=== PATIENT | female | born 1940 | race Caucasian/White ===

== ENCOUNTER → 2017-08-31 | Day surgery (SDC) | payer MEDICARE ==
[~2017-08-31] VITALS: Ht 152.4 cm; Wt 65.8 kg
[~2017-08-31] MED LIST: /ADVA50050; /ALLEGDTA; /CELE20CA; ACET65TA; ADV250INH INH; AMLO5TAB2 PO; BRIM1OPD OU; CHONDROITEN; GABA-282 PO; LIDOCAINE 2% INJ 100 MG/5 ML SDV (FOR ANES.) As Ordered ONE; LOSA50TA20 PO; LR 1,000 ML IV SCH; MSM; PRESCAP6 PO; PROPOFOL 200 MG/20 ML VIAL As Ordered ONE; PROV90AE; SIMV20TA2; SIMV20TA2 PO; SYSTSOL14 OU; VICO5TAB; VITATAB11 PO; [UNRECOGNIZED DRUG - OTHER]; [UNRECOGNIZED DRUG - OTHER]
[2017-08-31 14:50] VITALS: BP 136/70
--- NOTE | 2017-08-31 15:05 | ROOR ---
Patient Name: Nella Gutierrez Procedure Date: 08/31/2017 1:39 PM Date of : 1940 Age: 76 Room: [facility] Gender: Female Note Status: Finalized Procedure: Colonoscopy Indications: Heme positive stool Providers: Salbador Vargas MD Referring MD: YESICA CHASE JR, MD Requesting Provider: Medicines: Monitored Anesthesia Care Complications: No immediate complications. Procedure: Pre-Anesthesia Assessment: - Prior to the procedure, a History and Physical was performed, and patient medications and allergies were reviewed. The patient is competent. The risks and benefits of the procedure and the sedation options and risks were discussed with the patient. All questions were answered and informed consent was obtained. Patient identification and proposed procedure were verified by the physician, the nurse and the sack sewer in the procedure room. Mental Status Examination: alert and oriented. Airway Examination: normal oropharyngeal airway and neck mobility. CV Examination: regular rate and rhythm. Prophylactic Antibiotics: The patient does not require prophylactic antibiotics. Prior Anticoagulants: The patient has taken no previous anticoagulant or antiplatelet agents. ASA Grade Assessment: III - A patient with severe systemic disease. After reviewing the risks and benefits, the patient was deemed in satisfactory condition to undergo the procedure. The anesthesia plan was to use monitored anesthesia care (MAC). Immediately prior to administration of medications, the patient was re-assessed for adequacy to receive sedatives. The heart rate, respiratory rate, oxygen saturations, blood pressure, adequacy of pulmonary ventilation, and response to care were monitored throughout the procedure. The physical status of the patient was re-assessed after the procedure. The was introduced through the anus and advanced to the cecum, identified by appendiceal orifice and ileocecal valve. The colonoscopy was somewhat difficult due to a tortuous colon. The patient tolerated the procedure well. The quality of the bowel preparation was excellent. Findings: The perianal and digital rectal examinations were normal. The colon (entire examined portion) was moderately tortuous. A 5 mm polyp was found at 50 cm proximal to the anus. The polyp was sessile. The polyp was removed with a cold snare. Resection and retrieval were complete. In the descending colon pt had a few small (3-5 mm) vascular anomalies that looked like small dilated veins or venous plexuses. Impression: - Tortuous colon. - One 5 mm polyp at 50 cm proximal to the anus, removed with a cold snare. Resected and retrieved. Recommendation: - Discharge patient to home. - Resume previous diet. - Continue present medications. - Await pathology results. - Telephone endoscopist for pathology results in 1 week. Salbador Vargas MD 08/31/2017 3:04:36 PM Number of Addenda: 0 Note Initiated On: 08/31/2017 1:39 PM Estimated Blood Loss: Estimated blood loss: none.
== END | disposition home or self-care (01) ==
LOC: M OPP 10:59
PROVIDERS: ATTEND Surgery
DX: R19.5 Other fecal abnormalities (principal); D12.5 Benign neoplasm of sigmoid colon; Q43.8 Other specified congenital malformations of intestine; K63.89 Other specified diseases of intestine; I10 Essential (primary) hypertension; E78.5 Hyperlipidemia, unspecified; M19.90 Unspecified osteoarthritis, unspecified site; M51.26 Other intervertebral disc displacement, lumbar region; Z78.0 Asymptomatic menopausal state; J45.909 Unspecified asthma, uncomplicated; R06.02 Shortness of breath; E88.09 Other disorders of plasma-protein metabolism, not elsewhere classified; Z88.8 Allergy status to other drugs, medicaments and biological substances; Z79.899 Other long term (current) drug therapy; Z83.71 Family history of colonic polyps

== ENCOUNTER 2018-05-29 19:46 | Emergency (ER) | payer MEDICARE ==
[2018-05-29] MEDS: PERCOCET 5MG/325MG TAB PO (20:30)
[2018-05-29] MEDS: OXYCODONE/APAP 5MG/325MG(BULK FOR ED) 1 TABLET PO (20:39)
== END 2018-05-29 20:53 | disposition home or self-care (01) ==
LOC: M ED 19:46
DX: S52.571A Other intraarticular fracture of lower end of right radius, initial encounter for closed fracture (principal); S52.611A Displaced fracture of right ulna styloid process, initial encounter for closed fracture; W19.XXXA Unspecified fall, initial encounter; Y92.099 Unspecified place in other non-institutional residence as the place of occurrence of the external cause; Y93.9 Activity, unspecified; Y99.9 Unspecified external cause status; I10 Essential (primary) hypertension; I51.9 Heart disease, unspecified; Z79.899 Other long term (current) drug therapy; Z88.6 Allergy status to analgesic agent; Z88.8 Allergy status to other drugs, medicaments and biological substances
CPT/HCPCS: 73080

== ENCOUNTER 2018-06-08 11:04 | Inpatient (IN) | payer MEDICARE ==
[2018-06-08 11:44] LABS: BASO # 0.1 10^3/uL (0.0-0.2); BASO % 0.7 % (0.0-1.0); EOS # 0.2 10^3/uL (0.0-0.50); EOS % 2.1 % (0.0-3.0); HEMATOCRIT 39.4 % (36.0-47.0); HEMOGLOBIN 12.9 g/dl (12.0-15.5); IMMATURE GRANULOCYTE % 0.5 % (0-3.0); LYMPH # 1.5 10^3/uL (1.5-4.5); MEAN CORPUSCULAR HEMOGLOBIN 30.4 pg (27.0-33.0); MEAN CORPUSCULAR HGB CONC 32.7 g/dl (32.0-36.5); MEAN CORPUSCULAR VOLUME 92.9 fl (80.0-96.0); MONO # 0.7 10^3/uL (0.0-0.8); MONO % 6.5 % (0.0-5.0); NEUTROPHILS # 7.6 10^3/uL (1.8-7.7); NEUTROPHILS % 75.2 % (36.0-66.0); PLATELET COUNT, AUTOMATED 355 10^3/uL (150-450); RED BLOOD COUNT 4.24 10^6/uL (4.00-5.40); WHITE BLOOD COUNT 10.1 10^3/uL (4.0-10.0)
[2018-06-08 12:22] LABS: ALBUMIN 3.8 GM/DL (3.2-5.2); ALBUMIN/GLOBULIN RATIO 1.06 (1.00-1.93); ALKALINE PHOSPHATASE 104 U/L (45-117); ALT/SGPT 40 U/L (12-78); ANION GAP 12 MEQ/L (8-16); AST/SGOT 39 U/L (7-37); BILIRUBIN,DIRECT 0.1 MG/DL (0.0-0.2); BILIRUBIN,TOTAL 0.5 MG/DL (0.2-1.0); BLOOD UREA NITROGEN 14 MG/DL (7-18); CALCIUM LEVEL 9.7 MG/DL (8.8-10.2); CARBON DIOXIDE LEVEL 22 MEQ/L (21-32); CHLORIDE LEVEL 109 MEQ/L (98-107); CPK CREATINE PHOSPHOKINASE 251 U/L (26-192); CREATININE FOR GFR 0.81 MG/DL (0.55-1.30); GLOMERULAR FILTRATION RATE > 60.0 (>39); GLUCOSE, FASTING 120 MG/DL (70-100); MB/CK RELATIVE INDEX 1.08 (< OR =4); POTASSIUM SERUM 3.9 MEQ/L (3.5-5.1); SODIUM LEVEL 143 MEQ/L (136-145); TOTAL PROTEIN 7.4 GM/DL (6.4-8.2); TROPONIN I < 0.02 NG/ML (< 0.10)
[2018-06-08] MEDS: ONDANSETRON 4MG/2ML VIAL (J2405) IV (12:40)
[2018-06-08] MEDS: MECLIZINE 25 MG TABLET PO (12:40)
[2018-06-08] MEDS: NS 500 ML IV (12:40)
[2018-06-08 14:17] LABS: KETONE, URINE AUTO RFX NEGATIVE (NEGATIVE); LEUKOCYTE ESTERASE UR AUTO RFX NEGATIVE (NEGATIVE); NITRITE, URINE AUTO RFX NEGATIVE (NEGATIVE); RBC, URINE AUTO RFX 2 /HPF (0-3); SPECIFIC GRAVITY UR AUTO RFX 1.008 (1.002-1.035); SQUAM EPITHELIAL CELL UR AURFX 0 /HPF (0-6); WBC, URINE AUTO RFX 0 /HPF (0-3)
[2018-06-08] MEDS ORDERED: ONDANSETRON 4MG/2ML VIAL (J2405) IV (17:00)
[2018-06-08] MEDS: ADVAIR HFA 115/21MCG INHALER INH (20:29)
[2018-06-08] MEDS ORDERED: IPRATROPIUM 0.5MG/ALBUTEROL 2.5MG INH SOL UD 3ML (DUONEB)(J7620) NEB (20:30)
[2018-06-08 20:43] LABS: CPK CREATINE PHOSPHOKINASE 192 U/L (26-192); TROPONIN I < 0.02 NG/ML (< 0.10)
[2018-06-08] MEDS: amLODIPine 5 MG TAB PO (21:50)
[2018-06-08] MEDS: SIMVASTATIN 20 MG TAB PO (21:50)
[2018-06-08] MEDS: HEPARIN SOD (PORCINE) 5000 UNITS/ML VIAL SC (21:50)
[2018-06-08] MEDS: GABAPENTIN 300 MG CAP PO (21:50)
[2018-06-08] MEDS: SODIUM CHLORIDE NASAL 0.65% SPRAY BTL (OCEAN) (22:46)
[2018-06-08] MEDS: BRIMONIDINE 0.1% OPHTH SOLN 5 ML OU (22:46)
[2018-06-08] MEDS: FLUTICASONE PROP 0.05% NASAL SPRAY 16 GM (FLONASE) NARES (22:46)
[2018-06-09] MEDS: MECLIZINE 12.5 MG TAB PO (05:55)
[2018-06-09] MEDS: ADVAIR HFA 115/21MCG INHALER INH ×2 (07:47→21:00)
[2018-06-09] MEDS: GABAPENTIN 300 MG CAP PO ×3 (09:09→20:12)
[2018-06-09] MEDS: FLUTICASONE PROP 0.05% NASAL SPRAY 16 GM (FLONASE) NARES ×2 (09:09→20:13)
[2018-06-09] MEDS: BRIMONIDINE 0.1% OPHTH SOLN 5 ML OU ×2 (09:09→20:14)
[2018-06-09] MEDS: HEPARIN SOD (PORCINE) 5000 UNITS/ML VIAL SC ×2 (09:09→20:12)
[2018-06-09] MEDS: VITAMIN D 1,000 INTERNATIONAL UNITS TABLET PO (09:09)
[2018-06-09] MEDS: SODIUM CHLORIDE NASAL 0.65% SPRAY BTL (OCEAN) ×3 (09:09→20:13)
[2018-06-09] MEDS: SIMVASTATIN 20 MG TAB PO (20:12)
[2018-06-09] MEDS: amLODIPine 5 MG TAB PO (20:13)
[2018-06-10] MEDS: ADVAIR HFA 115/21MCG INHALER INH ×2 (07:15→20:55)
[2018-06-10] MEDS: GABAPENTIN 300 MG CAP PO ×3 (09:21→21:19)
[2018-06-10] MEDS: BRIMONIDINE 0.1% OPHTH SOLN 5 ML OU ×2 (09:21→21:20)
[2018-06-10] MEDS: VITAMIN D 1,000 INTERNATIONAL UNITS TABLET PO (09:21)
[2018-06-10] MEDS: SODIUM CHLORIDE NASAL 0.65% SPRAY BTL (OCEAN) ×3 (09:21→21:20)
[2018-06-10] MEDS: HEPARIN SOD (PORCINE) 5000 UNITS/ML VIAL SC ×2 (09:21→21:19)
[2018-06-10] MEDS: FLUTICASONE PROP 0.05% NASAL SPRAY 16 GM (FLONASE) NARES ×2 (09:22→21:20)
[2018-06-10] MEDS: SIMVASTATIN 20 MG TAB PO (21:19)
[2018-06-10] MEDS: amLODIPine 5 MG TAB PO (21:20)
[2018-06-11 06:35] LABS: BASO # 0.1 10^3/uL (0.0-0.2); BASO % 0.9 % (0.0-1.0); EOS # 0.6 10^3/uL (0.0-0.50); EOS % 5.3 % (0.0-3.0); HEMATOCRIT 38.5 % (36.0-47.0); HEMOGLOBIN 12.3 g/dl (12.0-15.5); IMMATURE GRANULOCYTE % 0.6 % (0-3.0); LYMPH # 2.3 10^3/uL (1.5-4.5); LYMPH % 19.1 % (24.0-44.0); MEAN CORPUSCULAR HEMOGLOBIN 30.4 pg (27.0-33.0); MEAN CORPUSCULAR HGB CONC 31.9 g/dl (32.0-36.5); MEAN CORPUSCULAR VOLUME 95.1 fl (80.0-96.0); MONO # 1.1 10^3/uL (0.0-0.8); MONO % 9.4 % (0.0-5.0); NEUTROPHILS # 7.7 10^3/uL (1.8-7.7); NEUTROPHILS % 64.7 % (36.0-66.0); PLATELET COUNT, AUTOMATED 348 10^3/uL (150-450); RED BLOOD COUNT 4.05 10^6/uL (4.00-5.40); RED CELL DISTRIBUTION WIDTH 14.3 % (11.5-14.5)
[2018-06-11 07:01] LABS: ANION GAP 12 MEQ/L (8-16); BLOOD UREA NITROGEN 19 MG/DL (7-18); CALCIUM LEVEL 9.7 MG/DL (8.8-10.2); CARBON DIOXIDE LEVEL 23 MEQ/L (21-32); CHLORIDE LEVEL 108 MEQ/L (98-107); CREATININE FOR GFR 0.88 MG/DL (0.55-1.30); GLOMERULAR FILTRATION RATE > 60.0 (>39); GLUCOSE, FASTING 110 MG/DL (70-100); SODIUM LEVEL 143 MEQ/L (136-145)
[2018-06-11] MEDS: ADVAIR HFA 115/21MCG INHALER INH (07:34)
[2018-06-11] MEDS: BRIMONIDINE 0.1% OPHTH SOLN 5 ML OU (09:44)
[2018-06-11] MEDS: FLUTICASONE PROP 0.05% NASAL SPRAY 16 GM (FLONASE) NARES (09:45)
[2018-06-11] MEDS: SODIUM CHLORIDE NASAL 0.65% SPRAY BTL (OCEAN) ×2 (09:45→16:00)
[2018-06-11] MEDS: GABAPENTIN 300 MG CAP PO ×2 (09:47→16:00)
[2018-06-11] MEDS: VITAMIN D 1,000 INTERNATIONAL UNITS TABLET PO (09:47)
[2018-06-11] MEDS: HEPARIN SOD (PORCINE) 5000 UNITS/ML VIAL SC (09:47)
[2018-06-13 12:53] LABS: BEDSIDE GLUCOSE 115 MG/DL (83-110)
== END 2018-06-11 16:15 | disposition home or self-care (01) | DRG 149 ==
LOC: M PCU 06-09 17:22 → M MS5PR 06-09 19:52 → M ED 11:04 → M ED INP 16:41 → M PCU 18:20
PROVIDERS: Hospitalist
DX: H81.20 Vestibular neuronitis, unspecified ear (principal); H83.09 Labyrinthitis, unspecified ear; J45.909 Unspecified asthma, uncomplicated; E78.5 Hyperlipidemia, unspecified; M54.5 Low back pain; Z79.899 Other long term (current) drug therapy; Z88.6 Allergy status to analgesic agent; Z88.8 Allergy status to other drugs, medicaments and biological substances; I10 Essential (primary) hypertension

== ENCOUNTER 2019-06-22 09:05 | Inpatient (IN) | payer MEDICARE ==
[~2019-06-22] VITALS: Ht 149.9 cm; Wt 65.0 kg
[~2019-06-22 09:05] MED LIST changes: -/ADVA50050; -/CELE20CA; +ADVA1AER2; -AMLO5TAB2 PO; +AMLO5TAB6 PO; +CELE1CAP4; -GABA-282 PO; +GABA-843 PO; -LIDOCAINE 2% INJ 100 MG/5 ML SDV (FOR ANES.) As Ordered ONE; -LOSA50TA20 PO; +LOSA50TA88 PO; -LR 1,000 ML IV SCH; +MECL12.575 PO; +PERC5TAB12 PO; -PROPOFOL 200 MG/20 ML VIAL As Ordered ONE; +TYLE500T78 PO; +VITA100066 PO
[2019-06-22] MEDS ORDERED: NITROGLYCERIN 2% OINT 1 GM *U/D* PKT TOP ONE (09:45)
[2019-06-22] MEDS ORDERED: GI COCKTAIL 50ML BTL(HYOSCYAMINE/MAALOX/LIDOCAINE VISCOUS)(1:3:1) PO ONE (09:45)
[2019-06-22 09:59] LABS: BASO # 0.1 10^3/uL (0.0-0.2); BASO % 0.7 % (0.0-1.0); EOS % 0.2 % (0.0-3.0); HEMATOCRIT 41.8 % (36.0-47.0); HEMOGLOBIN 13.4 g/dl (12.0-15.5); LYMPH # 0.9 10^3/uL (1.5-5.0); LYMPH % 5.8 % (24.0-44.0); MEAN CORPUSCULAR HEMOGLOBIN 30.8 pg (27.0-33.0); MEAN CORPUSCULAR HGB CONC 32.1 g/dl (32.0-36.5); MEAN CORPUSCULAR VOLUME 96.1 fl (80.0-96.0); MONO # 0.8 10^3/uL (0.0-0.8); MONO % 5.1 % (0.0-5.0); NEUTROPHILS % 87.4 % (36.0-66.0); PLATELET COUNT, AUTOMATED 346 10^3/uL (150-450); RED BLOOD COUNT 4.35 10^6/uL (4.00-5.40)
[2019-06-22 10:13] LABS: INR 1.04; PROTHROMBIN TIME 13.3 SECONDS (11.8-14.0)
[2019-06-22 10:14] LABS: PARTIAL THROMBOPLASTIN TIME 30.3 SECONDS (25.0-38.4)
--- NOTE | 2019-06-22 10:18 | REP ---
CHEST, SINGLE VIEW: Single portable view of the chest is performed and compared to a prior study of 09/14/2012. There is mild bibasilar fibroatelectatic change. There is slight elevation of the right hemidiaphragm. I see no acute infiltrate. The heart is upper limits of normal in size. There is calcification of the thoracic aorta. Mediastinal silhouette is unremarkable. IMPRESSION: No evidence of acute infiltrate or pulmonary edema. Electronically Signed by Berto Milner MD 06/23/2019 09:14 A
[2019-06-22 10:33] LABS: ALBUMIN 3.9 GM/DL (3.2-5.2); ALT/SGPT 30 U/L (12-78); BILIRUBIN,DIRECT < 0.1 MG/DL (0.0-0.2); BILIRUBIN,TOTAL 0.5 MG/DL (0.2-1.0); BLOOD UREA NITROGEN 13 MG/DL (7-18); CALCIUM LEVEL 9.5 MG/DL (8.8-10.2); CARBON DIOXIDE LEVEL 28 MEQ/L (21-32); CHLORIDE LEVEL 104 MEQ/L (98-107); CK-MB VALUE MASS 2.1 NG/ML (<3.6); CPK CREATINE PHOSPHOKINASE 167 U/L (26-192); CREATININE FOR GFR 0.89 MG/DL (0.55-1.30); GLOMERULAR FILTRATION RATE > 60.0 (>39); GLUCOSE, FASTING 129 MG/DL (70-100); LIPASE 143 U/L (73-393); MB/CK RELATIVE INDEX 1.26 (< OR =4); NT-PRO BNP 49 PG/ML (<450); POTASSIUM SERUM 4.5 MEQ/L (3.5-5.1); SODIUM LEVEL 140 MEQ/L (136-145); TOTAL PROTEIN 7.6 GM/DL (6.4-8.2); TROPONIN I < 0.02 NG/ML (< 0.10)
--- NOTE | 2019-06-22 10:58 | ECGEPIP ---
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
[2019-06-22] MEDS ORDERED: ISOVUE-370 76% 100ML VIAL (Q9967) As Ordered ONE (11:50)
--- NOTE | 2019-06-22 13:44 | REP ---
CT ANGIOGRAPHY OF THE CHEST WITH IV CONTRAST: HISTORY: Central chest pain. Comparison CT angiography is from Jan [address] CONTRAST DOSE: 100 mL of intravenous Isovue [address] FINDINGS: Digital preliminary scout executive radiograph is unremarkable. There is good opacification of the pulmonary arterial tree and there is no CT evidence of pulmonary embolus. There is vascular calcification in the aorta and its branches. There is no CT evidence of dissection or aneurysm. There is no evidence of pleural or pericardial effusion. There is a somewhat nodular peripheral pleural-based density in the left lower lobe. There are air bronchograms within this density. This measures 4.4 x 3.0 x 2.3 cm in overall dimension. Bronchogenic malignancy versus pneumonia. A small peripheral density is visible in 2014 in this location. There is also a stable noncalcified 5 mm nodule in the right upper lobe unchanged. There is no evidence of pleural or pericardial effusion. There are scattered normal-sized mediastinal lymph nodes which are unchanged from the 2014 prior study. No adrenal lesion is observed. Gallstones are noted within the gallbladder. There are benign cysts in the liver . These are unchanged. No bony destructive lesion is appreciated. IMPRESSION: 1. 4.4 cm nodular mass in the left lower lobe most likely neoplastic, less likely infiltrate. Consider PET-CT and histologic sampling. Stable right upper lobe nodule. No evidence of adenopathy or adrenal mass. 2. No CT evidence of pulmonary embolus or acute thoracic aortic disease. 3. Cholelithiasis. Electronically Signed by Robbie Oliver MD 06/22/2019 02:42 P
[2019-06-22 14:23] LABS: CK-MB VALUE MASS 1.8 NG/ML (<3.6); MB/CK RELATIVE INDEX 1.3 (< OR =4); TROPONIN I 0.02 NG/ML (< 0.10)
[2019-06-22] MEDS ORDERED: cefTRIAXone SOD 2 GM in D5W MINI-BAG PLUS 50 ML IV ONE (15:00)
[2019-06-22] MEDS ORDERED: NS 1,000 ML IV ONE (15:00)
--- NOTE | 2019-06-22 15:19 | REP ---
CT of the abdomen pelvis with IV contrast, without bowel contrast for right upper quadrant pain: Comparison is 02/18/2011. The visualized lung bases demonstrate infiltrate versus mass in the left lower lobe. Follow-up is recommended. There is a subcapsular hepatic cyst anteriorly in the medial segment of the hepatic left lobe measuring 18 mm, not significant changed. There is a second hypodense lesion in the right lobe of the liver, nonspecific, hemangioma versus cyst, measuring approximately 8 mm. There are several other small enhancing lesions in the right lobe of the liver measuring up to 12 mm, possibly small hemangiomas, but not definitely present previously. Follow-up hepatic MRI might be considered for further evaluation. There are multiple small gallbladder calculi. This is unchanged. There is no biliary duct dilatation. There has been a distal pancreatectomy. On the prior study there was a cyst at the distal pancreas at the pancreatectomy site. This cyst has significantly decreased in size. The remaining pancreas is otherwise unremarkable. 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 This is unchanged. The adrenals are unremarkable. The kidneys are unremarkable except for diffuse renal cortical thinning bilaterally. There is a 99 ml Bosniak type 1 renal cortical cyst in the left renal lower pole. There is a 28 mm Bosniak type 1 cyst at the mid pole of the left kidney. These were not present previously. There is a 15 ml Bosniak type 1 cyst at the mid pole of the right kidney, not present previously. The abdominal aorta is unremarkable. There is no periaortic adenopathy or mass. There is wall thickening of the distal transverse colon, descending colon and sigmoid colon. This is nonspecific but compatible with colitis in the appropriate clinical setting. There is no ascites. The bowel is otherwise unremarkable. The mesentery is unremarkable. Pelvis: The uterus is unremarkable. There is a left adnexal 3.7 cm cyst. On 02/18/2011 there was a left adnexal cyst that measured 2.2 cm. The right adnexa is unremarkable. The bladder is unremarkable. There is no pelvic ascites or adenopathy. Impression: Wall thickening of the distal transverse colon, descending colon and sigmoid colon, nonspecific but compatible with colitis in the appropriate clinical setting. No ascites or adenopathy. Focal density in the lower lobe of the left lung, mass versus infiltrate. Recommend follow-up. Cholelithiasis. Hepatic cysts as described. Multiple tiny hepatic enhancing lesions, possibly hemangioma. Followup MRI is recommended. Distal pancreatectomy. The cyst at the distal pancreas has decreased in size. Bilateral Bosniak type 1 renal cysts. Left adnexal 3.7 cm cyst. No spleen. Electronically Signed by Berto Avina MD 06/22/2019 03:11 P
[2019-06-22] MEDS ORDERED: SYST1SOL4 OU (15:34)
[2019-06-22] MEDS ORDERED: LOSA50TA88 PO (15:34)
[2019-06-22] MEDS ORDERED: ACET-683 PO (15:34)
[2019-06-22] MEDS ORDERED: FLUT1BLS2 INH (15:34)
[2019-06-22] MEDS ORDERED: PRESCAP PO (15:34)
[2019-06-22] MEDS ORDERED: PROL60SO SC (15:35)
[2019-06-22] MEDS ORDERED: MAALOX 30 ML SUSP *UDC PO PRN (16:45)
[2019-06-22 19:53] LABS: CK-MB VALUE MASS 1.3 NG/ML (<3.6); MB/CK RELATIVE INDEX 1.08 (< OR =4); TROPONIN I 0.02 NG/ML (< 0.10)
[2019-06-22 20:20] VITALS: BP 160/74
[2019-06-22] MEDS ORDERED: ACETAMINOPHEN TAB 650MG DOSE (2X325MG) PO ONE (21:00)
[2019-06-22] MEDS: LOSARTAN 50 MG TAB PO SCH (21:20)
[2019-06-22] MEDS: GABAPENTIN 300 MG CAP PO SCH (21:20)
[2019-06-22] MEDS: amLODIPine 5 MG TAB PO SCH (21:21)
[2019-06-22] MEDS: SIMVASTATIN 20 MG TAB PO SCH (21:21)
[2019-06-22] MEDS: BRIMONIDINE 0.1% OPHTH SOLN 5 ML OU SCH (22:02)
[2019-06-22] MEDS: ADVAIR HFA 115/21MCG INHALER INH SCH (22:20)
--- NOTE | 2019-06-22 22:35 | HPEPDOC ---
General Date of Admission 06/22/19 Date of Service: Jun 22, 2019 Chief Complaint The patient is a 78-year-old female admitted with a reason for visit of Chest Pain. 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 She had got up and gone to the bathroom and then came back and lay down on the bed on her side and suddenly felt the cramp like pain in the lower part of the chest below both breasts radiating bilaterally to the sides. She turned over to the other side thinking it was acid reflux and would get better but that did not help and the pain persisted for several hours. She felt that she she was able to stretch her chest wall it would feel better. Associated with this was also upper midback pain radiating forward to the right side. The pain was about 6/10 in intensity and persistent not worsened with deep breaths. She called her primary care however they could not get her in today and was instructed to go to the urgent care. At the urgent care she was found to be extremely hypertensive and was sent to the ED. On arrival to the ED her BP was 221/107 and she was still in pain . She was given a GI cocktail and a nitropaste. Ultimately her pain resolved at about 3 pm. She then had a CT angio of the chest. which was negative of PE or dissection or aneurysm or pleural or pericardial effusion. However it did show a nodular peripheral pleural-based density in the left lower lobe. There are air bronchograms within this density. This measures 4.4 x 3.0 x 2.3 cm in overall dimension. Radiologist felt it to be Bronchogenic malignancy versus pneumonia. A small peripheral density is visible in 2013 in this location. There is also a stable noncalcified 5 mm nodule in the right upper lobe unchanged. She was also noted to have an elevated WBC of 16 k . She was admitted for possible pneumonia and chest pain Home Medications Scheduled Amlodipine Besylate (Amlodipine Besylate) 5 Mg Tab, 5 MG PO QPM, (Reported) Brimonidine Tartrate (Alphagan P) 100 Drop/5 Ml Soln, 1 DROP OU BID, (Reported) Cholecalciferol (Vitamin D3) (Vitamin D3) 1,000 Unit Tab, 1,000 UNIT PO DAILY, (Reported) Denosumab Injection (Prolia) 60 Mg/1 Ml Syringe, 60 MG SC ASDIRECTED, (Reported) EVERY 6 MONTHS, DUE JUL/AUG PER PT Fluticasone Propion/Salmeterol (Wixela 250-50 Inhub) 1 Each Blst.w.dev, 1 PUFF INH BID, (Reported) Gabapentin (Gabapentin) 300 Mg Cap, 300 MG PO TID, (Reported) Losartan Potassium (Losartan Potassium) 50 Mg Tablet, 50 MG PO QPM, (Reported) Simvastatin (Simvastatin) 20 Mg Tab, 20 MG PO QPM, (Reported) Vit A/Vit C/Vit E/Zinc/Copper (Preservision Areds Softgel) 1 Each Capsule, 1 CAP PO BID, (Reported) Scheduled PRN Acetaminophen (Acetaminophen) 500 Mg Tablet, 500 MG PO Q6H PRN for PAIN, (Reported) Propylene Glycol/Peg 400/Pf (Systane 0.3-0.4% Eye Drop) 1 Each Droperette, 1 DROP OU QID PRN for DRY EYES, (Reported) Allergies Coded Allergies: succinylcholine (Verified Allergy, Unknown, 06/22/19) aspirin (Verified Adverse Reaction, Intermediate, ASTHMA EXACERBATION, 1 ) Past Medical History Medical History Hypertension, ventral hernia, asthma, dyslipidemia, chronic back pain, pancreatic mucinous cyst adenoma s/p distal pacreatectomy and splenectomy, vertigo, Surgical History Distal pancreatectomy with splenectomy 2004 at [facility]. Ventral hernia repair 2005. Appendectomy, Hysteroscopy. Family History Significant Family History: Hypertension Discussed with the pateint and is non contributory. No family history of cardiac disease. Social History * Smoker: Denies Alcohol: Denies Drugs: denies A-FIB/CHADSVASC A-FIB History Current/History of A-Fib/PAF?: No Review of Systems Constitutional: Denies: Chills, Fever, Night Sweats Eyes: Denies: Pain, Vision change ENT: Denies: Head Aches, Ear Pain, Dysphagia Skin: Denies: Rash, Lesions, Breakdown Pulmonary: Denies: Dyspnea, Cough Cardiovascular: Reports: Chest Pain; Denies: Palpitations, Orthopnea, Paroxysmal Noc. Dyspnea, Edema, Lt Headedness, Other Symptoms Gastrointestinal: Denies: Nausea, Vomiting, Abdominal Pain, Diarrhea Genitourinary: Denies: Dysuria, Frequency, Incontinence, Retention Hematologic: Denies: Bruising, Bleeding Excessively Musculoskeletal: Reports: Back Pain Neurological: Denies: Weakness, Numbness, Change in speech, Confusion Physical Examination General Exam: Positive: Alert, Cooperative, No Acute Distress Eye Exam: Positive: PERRLA, Conjunctiva & lids normal, EOMI; Negative: Sclera icteric ENT Exam: Positive: Atraumatic, Mucous membr. moist/pink, Pharynx Normal Neck Exam: Positive: Supple; Negative: JVD, thyromegaly Chest Exam: Positive: Clear to auscultation, Normal air movement Heart Exam: Positive: Rate Normal, Regular Rhythm, Normal S1, Normal S2; Negative: Murmurs, Rubs Telemetry: Positive: No significant arrhythmia Abdomen Exam: Positive: Normal bowel sounds, Soft; Negative: Tenderness, Hepatospenomegaly Extremity Exam: Positive: Normal pulses; Negative: Clubbing, Cyanosis, Edema Skin Exam: Positive: Nl turgor and temperature; Negative: Breakdown, Lesion Vital Signs Vital Signs Date Time Temp Pulse Resp B/P (MAP) Pulse Ox O2 Delivery O2 Flow Rate FiO2 06/22/19 13:00 96 18 181/88 (119) 96 Room Air 06/22/19 09:06 97.7 Laboratory Data Labs 24H Laboratory Tests 2 06/22/19 09:44: Immature Granulocyte % (Auto) 0.8, White Blood Count 16.0H, Red Blood Count 4.35, Hemoglobin 13.4, Hematocrit 41.8, Mean Corpuscular Volume 96.1H, Mean Corpuscular Hemoglobin 30.8, Mean Corpuscular Hemoglobin Concent 32.1, Red Cell Distribution Width 14.3, Platelet Count 346, Neutrophils (%) (Auto) 87.4H, Lymphocytes (%) (Auto) 5.8L, Monocytes (%) (Auto) 5.1H, Eosinophils (%) (Auto) 0.2, Basophils (%) (Auto) 0.7, Neutrophils # (Auto) 14.0H, Lymphocytes # (Auto) 0.9L, Monocytes # (Auto) 0.8, Eosinophils # (Auto) 0.0, Basophils # (Auto) 0.1, Nucleated Red Blood Cells % (auto) 0.0, Prothrombin Time 13.3, Prothromb Time International Ratio 1.04, Activated Partial Thromboplast Time 30.3, Anion Gap 8, Glomerular Filtration Rate > 60.0, Calcium Level 9.5, Aspartate Amino Transf (AST/SGOT) 27, Alanine Aminotransferase (ALT/SGPT) 30, Alkaline Phosphatase 67, Total Bilirubin 0.5, Direct Bilirubin < 0.1, Total Creatine Kinase 167, Creatine Kinase MB 2.1, Creatine Kinase MB Relative Index 1.26, Troponin I < 0.02, NT- Pro-B-Type Natriuretic Peptide 49, Total Protein 7.6, Albumin 3.9, Albumin/Globulin Ratio 1.05, Lipase 143, Thyroid Stimulating Hormone (TSH) 1.250 06/22/19 13:30: Total Creatine Kinase 138, Creatine Kinase MB 1.8, Creatine Kinase MB Relative Index 1.30, Troponin I 0.02 CBC/BMP Laboratory Tests 06/22/19 09:44 Red Blood Count 4.35, Mean Corpuscular Volume 96.1 H, Mean Corpuscular Hemoglobin 30.8, Mean Corpuscular Hemoglobin Concent 32.1, Red Cell Distribution Width 14.3, Neutrophils (%) (Auto) 87.4 H, Lymphocytes (%) (Auto) 5.8 L, Monocytes (%) (Auto) 5.1 H, Eosinophils (%) (Auto) 0.2, Basophils (%) (Auto) 0.7, Neutrophils # (Auto) 14.0 H, Lymphocytes # (Auto) 0.9 L, Monocytes # (Auto) 0.8, Eosinophils # (Auto) 0.0, Basophils # (Auto) 0.1 Microbiology Microbiology 06/22/19 Respiratory Virus Panel (PCR) (DAYNA), Received Pending 06/22/19 Blood Culture, Received Pending 06/22/19 Blood Culture, Received Pending Assessment/Plan 78 year old female with PMH of Hypertension, incisional hernias, ventral hernia, asthma, dyslipidemia, chronic back pain, 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 She had got up and gone to the bathroom and then came back and lay down on the bed on her side and suddenly felt the cramp like pain in the lower part of the chest below both breasts radiating bilaterally to the sides. She then had a CT angio of the chest. which was negative of PE or dissection or aneurysm or pleural or pericardial effusion. However it did show a nodular peripheral pleural-based density in the left lower lobe. There are air bronchograms within this density. This measures 4.4 x 3.0 x 2.3 cm in overall dimension. Radiologist felt it to be Bronchogenic malignancy versus pneumonia. Chest pain Nonspecific unlikely cardiac no ekg changes no elevation in cardiac markers, not realated to exertion could be musculoskeletal, esophageal reflux and esophageal spasm. will continue with Pantoprazole and gi cocktail prn. Pneumonia vs Lung malignancy. the opacity seen at the LLL has air bronchograms in it. will treat as pneumonia continue ceftriaxone and azithromycin for community acquired pneumonia will send procalcitonin Once treated with antibiotics will need early follow up CT. If still persists will need CT guided biopsy. Hypertension continue amlodipine and cozaar Asthma will continue home advair Hyperlipidemia continue statin Plan / VTE VTE Prophylaxis Ordered?: Yes TIERRA TRAN MD Jun 22, 2019 16:03
[2019-06-23 06:00] VITALS: BP 121/62
[2019-06-23 06:29] LABS: BASO # 0.1 10^3/uL (0.0-0.2); BASO % 0.7 % (0.0-1.0); EOS # 0.4 10^3/uL (0.0-0.5); EOS % 3.3 % (0.0-3.0); LYMPH # 2.3 10^3/uL (1.5-5.0); LYMPH % 19.1 % (24.0-44.0); MEAN CORPUSCULAR HEMOGLOBIN 31.4 pg (27.0-33.0); MEAN CORPUSCULAR HGB CONC 32.5 g/dl (32.0-36.5); MEAN CORPUSCULAR VOLUME 96.6 fl (80.0-96.0); MONO # 1.4 10^3/uL (0.0-0.8); MONO % 11.4 % (0.0-5.0); NEUTROPHILS # 7.8 10^3/uL (1.5-8.5); NEUTROPHILS % 65.1 % (36.0-66.0); PLATELET COUNT, AUTOMATED 329 10^3/uL (150-450); RED BLOOD COUNT 4.14 10^6/uL (4.00-5.40)
[2019-06-23 06:49] LABS: CALCIUM LEVEL 8.9 MG/DL (8.8-10.2); CREATININE FOR GFR 1.14 MG/DL (0.55-1.30); GLOMERULAR FILTRATION RATE 48.9 (>39)
--- NOTE | 2019-06-23 07:28 | ECGEPIP ---
[facility] - ED Test Date: 2019-06-22 Pat Name: OLI PHAM Department: Room: - Gender: Female Director Drug Safety: : 1940 Requested By: TENNILLE Morrow Order Number: [id number] Reading MD: Edwin Greenberg Measurements Intervals [place] Rate: 95 P: 58 AK: 179 QRS: 47 QRSD: 77 T: 20 QT: 344 QTc: 433 Interpretive Statements SINUS RHYTHM LOW QRS VOLTAGE IN PRECORDIAL LEADS NSTTW ABNORMALITIES BASELINE ARTIFACT AFFECTS INTERPRETATION SIMILAR TO PRIOR ON SAME DATE Electronically Signed on 06-23-2019 7:28:23 EDT by Edwin Greenberg
[2019-06-23] MEDS: ADVAIR HFA 115/21MCG INHALER INH SCH ×2 (07:43→20:28)
[2019-06-23] MEDS: BRIMONIDINE 0.1% OPHTH SOLN 5 ML OU SCH ×2 (09:04→20:47)
[2019-06-23] MEDS: GABAPENTIN 300 MG CAP PO SCH ×3 (09:04→20:47)
[2019-06-23] MEDS: ENOXAPARIN 30 MG/0.3 ML SYR (J1650) SC SCH (09:04)
[2019-06-23 14:00] VITALS: BP 161/75
--- NOTE | 2019-06-23 14:52 | IPNPDOC ---
Subjective Date Seen The patient was seen on 06/23/19. Subjective Chief Complaint/HPI No complaints this morning. No further episodes of chest pain, no nausea or vomiting or diarrhea, no abdominal pain. No fever or chills, no cough or phlegm Objective Physical Examination General Exam: Positive: Alert, Cooperative, No Acute Distress Eye Exam: Positive: PERRLA, Conjunctiva & lids normal, EOMI; Negative: Sclera icteric ENT Exam: Positive: Atraumatic, Mucous membr. moist/pink, Pharynx Normal Neck Exam: Positive: Supple; Negative: JVD, thyromegaly Chest Exam: Positive: Clear to auscultation, Normal air movement Heart Exam: Positive: Rate Normal, Regular Rhythm, Normal S1, Normal S2; Negative: Murmurs, Rubs Telemetry: Positive: No significant arrhythmia Abdomen Exam: Positive: Normal bowel sounds, Soft; Negative: Tenderness, Hepatospenomegaly Extremity Exam: Positive: Normal pulses; Negative: Clubbing, Cyanosis, Edema Skin Exam: Positive: Nl turgor and temperature; Negative: Breakdown, Lesion Assessment /Plan Assessment 78 year old female with PMH of Hypertension, incisional hernias, ventral hernia, asthma, dyslipidemia, chronic back pain, 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 She had got up and gone to the bathroom and then came back and lay down on the bed on her side and suddenly felt the cramp like pain in the lower part of the chest below both breasts radiating bilaterally to the sides. She then had a CT angio of the chest. which was negative of PE or dissection or aneurysm or pleural or pericardial effusion. However it did show a nodular peripheral pleural-based density in the left lower lobe. There are air bronchograms within this density. This measures 4.4 x 3.0 x 2.3 cm in overall dimension. Radiologist felt it to be Bronchogenic malignancy versus pneumonia. Chest pain resolved. Nonspecific unlikely cardiac no ekg changes no elevation in cardiac markers, not related to exertion could be musculoskeletal, esophageal reflux and esophageal spasm. will continue with Pantoprazole and gi cocktail prn. Pneumonia vs Lung malignancy. the opacity seen at the LLL has air bronchograms in it. will treat as pneumonia continue ceftriaxone and azithromycin for community acquired pneumonia will send procalcitonin Once treated with antibiotics will need early follow up CT. If still persists will need CT guided biopsy. Hypertension continue amlodipine and cozaar Asthma will continue home advair Hyperlipidemia continue statin Advance directives: Pateint wants to be Full code. She has a HCP. Plan/VTE VTE Prophylaxis Ordered?: Yes VS, I&O, 24H, Fishbone Vital Signs/I&O Vital Signs Date Time Temp Pulse Resp B/P (MAP) Pulse Ox O2 Delivery O2 Flow Rate FiO2 06/23/19 06:00 98.0 82 20 121/62 (81) 95 06/22/19 17:45 Room Air I&O- Last 24 Hours up to 6 AM 06/23/19 06:00 Intake Total 1465 ml Output Total 400 ml Balance 1065 ml Laboratory Data 24H LABS Laboratory Tests 2 06/22/19 18:54: Total Creatine Kinase 120, Creatine Kinase MB 1.3, Creatine Kinase MB Relative Index 1.08, Troponin I 0.02 06/23/19 06:06: Immature Granulocyte % (Auto) 0.4, White Blood Count 12.0H, Red Blood Count 4.14, Hemoglobin 13.0, Hematocrit 40.0, Mean Corpuscular Volume 96.6H, Mean Corpuscular Hemoglobin 31.4, Mean Corpuscular Hemoglobin Concent 32.5, Red Cell Distribution Width 14.6H, Platelet Count 329, Neutrophils (%) (Auto) 65.1, Lymphocytes (%) (Auto) 19.1L, Monocytes (%) (Auto) 11.4H, Eosinophils (%) (Auto) 3.3H, Basophils (%) (Auto) 0.7, Neutrophils # (Auto) 7.8, Lymphocytes # (Auto) 2.3, Monocytes # (Auto) 1.4H, Eosinophils # (Auto) 0.4, Basophils # (Auto) 0.1, Nucleated Red Blood Cells % (auto) 0.0, Anion Gap 5L, Glomerular Filtration Rate 48.9, Blood Urea Nitrogen 15, Creatinine 1.14, Sodium Level 139, Potassium Level 4.0, Chloride Level 106, Carbon Dioxide Level 28, Calcium Level 8.9 CBC/BMP Laboratory Tests 06/23/19 06:06 Red Blood Count 4.14, Mean Corpuscular Volume 96.6 H, Mean Corpuscular Hemoglobin 31.4, Mean Corpuscular Hemoglobin Concent 32.5, Red Cell Distribution Width 14.6 H, Neutrophils (%) (Auto) 65.1, Lymphocytes (%) (Auto) 19.1 L, Monocytes (%) (Auto) 11.4 H, Eosinophils (%) (Auto) 3.3 H, Basophils (%) (Auto) 0.7, Neutrophils # (Auto) 7.8, Lymphocytes # (Auto) 2.3, Monocytes # (Auto) 1.4 H, Eosinophils # (Auto) 0.4, Basophils # (Auto) 0.1, Calcium Level 8.9 Microbiology Microbiology 06/22/19 Respiratory Virus Panel (PCR) ([facility]NA) - Final, Complete 06/22/19 Blood Culture, Received Pending 06/22/19 Blood Culture, Received Pending TIERRA TRAN MD Jun 23, 2019 14:52
[2019-06-23] MEDS ORDERED: AZITHROMYCIN INJ 500 MG, VIAL MATE ADAPTER 1 EACH in D5W 250 ML IV SCH ×4 (16:00)
[2019-06-23] MEDS ORDERED: cefTRIAXone SOD 1 GM in D5W MINI-BAG PLUS 50 ML IV SCH (17:00)
[2019-06-23] MEDS: amLODIPine 5 MG TAB PO SCH (20:46)
[2019-06-23] MEDS: SIMVASTATIN 20 MG TAB PO SCH (20:46)
[2019-06-23] MEDS: LOSARTAN 50 MG TAB PO SCH (20:47)
[2019-06-23 22:00] VITALS: BP 150/72
[2019-06-24 06:00] VITALS: BP 131/70
[2019-06-24 06:07] LABS: BASO # 0.1 10^3/uL (0.0-0.2); BASO % 0.9 % (0.0-1.0); EOS # 0.6 10^3/uL (0.0-0.5); EOS % 5.6 % (0.0-3.0); HEMATOCRIT 35.9 % (36.0-47.0); HEMOGLOBIN 11.7 g/dl (12.0-15.5); LYMPH # 2.1 10^3/uL (1.5-5.0); LYMPH % 19.4 % (24.0-44.0); MEAN CORPUSCULAR HGB CONC 32.6 g/dl (32.0-36.5); MEAN CORPUSCULAR VOLUME 95.2 fl (80.0-96.0); MONO # 1.4 10^3/uL (0.0-0.8); NEUTROPHILS # 6.7 10^3/uL (1.5-8.5); NEUTROPHILS % 60.6 % (36.0-66.0); PLATELET COUNT, AUTOMATED 283 10^3/uL (150-450); RED BLOOD COUNT 3.77 10^6/uL (4.00-5.40)
[2019-06-24 06:22] LABS: BLOOD UREA NITROGEN 17 MG/DL (7-18); CALCIUM LEVEL 8.9 MG/DL (8.8-10.2); CARBON DIOXIDE LEVEL 27 MEQ/L (21-32); CHLORIDE LEVEL 111 MEQ/L (98-107); CREATININE FOR GFR 0.95 MG/DL (0.55-1.30); GLOMERULAR FILTRATION RATE > 60.0 (>39); GLUCOSE, FASTING 108 MG/DL (70-100); POTASSIUM SERUM 4.4 MEQ/L (3.5-5.1); SODIUM LEVEL 142 MEQ/L (136-145)
[2019-06-24] MEDS: GABAPENTIN 300 MG CAP PO SCH ×3 (08:50→21:50)
[2019-06-24] MEDS: ENOXAPARIN 30 MG/0.3 ML SYR (J1650) SC SCH (08:50)
[2019-06-24] MEDS: BRIMONIDINE 0.1% OPHTH SOLN 5 ML OU SCH ×2 (08:53→21:49)
[2019-06-24] MEDS: ADVAIR HFA 115/21MCG INHALER INH SCH ×2 (09:00→20:02)
[2019-06-24] MEDS ORDERED: cefTRIAXone SOD 1 GM in D5W MINI-BAG PLUS 50 ML IV SCH (13:00)
[2019-06-24 14:00] VITALS: BP 130/80
[2019-06-24] MEDS ORDERED: AZITHROMYCIN INJ 500 MG, VIAL MATE ADAPTER 1 EACH in D5W 250 ML IV SCH (17:00)
--- NOTE | 2019-06-24 19:45 | IPNPDOC ---
Subjective Date Seen The patient was seen on 06/24/19. Subjective Chief Complaint/HPI Does not have any complaints this morning. Objective Physical Examination General Exam: Positive: Alert, Cooperative, No Acute Distress Eye Exam: Positive: PERRLA, Conjunctiva & lids normal, EOMI; Negative: Sclera icteric ENT Exam: Positive: Atraumatic, Mucous membr. moist/pink, Pharynx Normal Neck Exam: Positive: Supple; Negative: JVD, thyromegaly Chest Exam: Positive: Clear to auscultation, Normal air movement Heart Exam: Positive: Rate Normal, Regular Rhythm, Normal S1, Normal S2; Negative: Murmurs, Rubs Telemetry: Positive: No significant arrhythmia Abdomen Exam: Positive: Normal bowel sounds, Soft; Negative: Tenderness, Hepatospenomegaly Extremity Exam: Positive: Normal pulses; Negative: Clubbing, Cyanosis, Edema Skin Exam: Positive: Nl turgor and temperature; Negative: Breakdown, Lesion Assessment /Plan Assessment 78 year old female with PMH of Hypertension, incisional hernias, ventral hernia, asthma, dyslipidemia, chronic back pain, 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 She had got up and gone to the bathroom and then came back and lay down on the bed on her side and suddenly felt the cramp like pain in the lower part of the chest below both breasts radiating bilaterally to the sides. She then had a CT angio of the chest. which was negative of PE or dissection or aneurysm or pleural or pericardial effusion. However it did show a nodular peripheral pleural-based density in the left lower lobe. There are air bronchograms within this density. This measures 4.4 x 3.0 x 2.3 cm in overall dimension. Radiologist felt it to be Bronchogenic malignancy versus pneumonia. Chest pain resolved. Nonspecific unlikely cardiac no ekg changes no elevation in cardiac markers, not related to exertion could be musculoskeletal, esophageal reflux and esophageal spasm. will continue with Pantoprazole and gi cocktail prn. Pneumonia vs Lung malignancy. the opacity seen at the LLL has air bronchograms in it. will treat as pneumonia continue ceftriaxone and azithromycin for community acquired pneumonia procalcitonin is normal so very low possibility of a bacterial infection. have consulted pulmonary Hypertension continue amlodipine and cozaar Asthma will continue home advair Hyperlipidemia continue statin Advance directives: Pateint wants to be Full code. She has a HCP. Plan/VTE VTE Prophylaxis Ordered?: Yes VS, I&O, 24H, Fishbone Vital Signs/I&O Vital Signs Date Time Temp Pulse Resp B/P (MAP) Pulse Ox O2 Delivery O2 Flow Rate FiO2 06/24/19 06:00 98.1 88 17 131/70 (90) 94 06/22/19 17:45 Room Air I&O- Last 24 Hours up to 6 AM 06/24/19 06:00 Intake Total 1620 ml Output Total 1550 ml Balance 70 ml Laboratory Data 24H LABS Laboratory Tests 2 06/24/19 05:51: Immature Granulocyte % (Auto) 0.5, White Blood Count 11.0H, Red Blood Count 3.77L, Hemoglobin 11.7L, Hematocrit 35.9L, Mean Corpuscular Volume 95.2, Mean Corpuscular Hemoglobin 31.0, Mean Corpuscular Hemoglobin Concent 32.6, Red Cell Distribution Width 14.8H, Platelet Count 283, Neutrophils (%) (Auto) 60.6, Lymp hocytes (%) (Auto) 19.4L, Monocytes (%) (Auto) 13.0H, Eosinophils (%) (Auto) 5.6H, Basophils (%) (Auto) 0.9, Neutrophils # (Auto) 6.7, Lymphocytes # (Auto) 2.1, Monocytes # (Auto) 1.4H, Eosinophils # (Auto) 0.6H, Basophils # (Auto) 0.1, Nucleated Red Blood Cells % (auto) 0.0, Anion Gap 4L, Glomerular Filtration Rate > 60.0, Blood Urea Nitrogen 17, Creatinine 0.95, Sodium Level 142, Potassium Level 4.4, Chloride Level 111H, Carbon Dioxide Level 27, Calcium Level 8.9 CBC/BMP Laboratory Tests 06/24/19 05:51 Red Blood Count 3.77 L, Mean Corpuscular Volume 95.2, Mean Corpuscular Hemoglobin 31.0, Mean Corpuscular Hemoglobin Concent 32.6, Red Cell Distribution Width 14.8 H, Neutrophils (%) (Auto) 60.6, Lymphocytes (%) (Auto) 19.4 L, Monocytes (%) (Auto) 13.0 H, Eosinophils (%) (Auto) 5.6 H, Basophils (%) (Auto) 0.9, Neutrophils # (Auto) 6.7, Lymphocytes # (Auto) 2.1, Monocytes # (Auto) 1.4 H, Eosinophils # (Auto) 0.6 H, Basophils # (Auto) 0.1, Calcium Level 8.9 Microbiology Microbiology 06/22/19 Respiratory Virus Panel (PCR) ([facility]) - Final, Complete 06/22/19 Blood Culture - Preliminary, Resulted No growth after 24 hours . All specim... 06/22/19 Blood Culture - Preliminary, Resulted No growth after 24 hours . All specim... TIERRA TRAN MD Jun 24, 2019 13:57
[2019-06-24 21:50] VITALS: BP 142/71
[2019-06-24] MEDS: SIMVASTATIN 20 MG TAB PO SCH (21:50)
[2019-06-24] MEDS: LOSARTAN 50 MG TAB PO SCH (21:50)
[2019-06-24] MEDS: amLODIPine 5 MG TAB PO SCH (21:50)
[2019-06-24 22:00] VITALS: BP 142/71
[2019-06-25 05:50] LABS: BASO # 0.1 10^3/uL (0.0-0.2); BASO % 1.1 % (0.0-1.0); EOS # 0.8 10^3/uL (0.0-0.5); EOS % 7.4 % (0.0-3.0); HEMATOCRIT 36.1 % (36.0-47.0); HEMOGLOBIN 11.8 g/dl (12.0-15.5); LYMPH # 1.9 10^3/uL (1.5-5.0); LYMPH % 17.9 % (24.0-44.0); MEAN CORPUSCULAR HEMOGLOBIN 31.6 pg (27.0-33.0); MEAN CORPUSCULAR HGB CONC 32.7 g/dl (32.0-36.5); MEAN CORPUSCULAR VOLUME 96.5 fl (80.0-96.0); MONO # 1.3 10^3/uL (0.0-0.8); MONO % 12.1 % (0.0-5.0); NEUTROPHILS # 6.6 10^3/uL (1.5-8.5); PLATELET COUNT, AUTOMATED 295 10^3/uL (150-450); RED BLOOD COUNT 3.74 10^6/uL (4.00-5.40); WHITE BLOOD COUNT 10.8 10^3/uL (4.0-10.0)
[2019-06-25 06:00] VITALS: BP 118/65
[2019-06-25 06:07] LABS: CREATININE FOR GFR 0.99 MG/DL (0.55-1.30); GLOMERULAR FILTRATION RATE 57.6 (>39); POTASSIUM SERUM 4.2 MEQ/L (3.5-5.1)
[2019-06-25] MEDS: ADVAIR HFA 115/21MCG INHALER INH SCH (07:16)
[2019-06-25] MEDS: GABAPENTIN 300 MG CAP PO SCH (09:12)
[2019-06-25] MEDS: BRIMONIDINE 0.1% OPHTH SOLN 5 ML OU SCH (09:12)
[2019-06-25] MEDS: ENOXAPARIN 30 MG/0.3 ML SYR (J1650) SC SCH (09:13)
[2019-06-25] MEDS ORDERED: cefTRIAXone SOD 1 GM in D5W MINI-BAG PLUS 50 ML IV ONE (10:00)
[2019-06-25] MEDS ORDERED: AZITHROMYCIN 250 MG TAB PO ONE (10:00)
--- NOTE | 2019-06-25 10:12 | CR ---
DATE OF CONSULTATION: 06/25/2019 REASON FOR CONSULTATION: Abnormal x-rays. HISTORY OF PRESENT ILLNESS: Ms. Gutierrez is a delightfully pleasant 78-year-old female who is a reformed tobacco abuser. She quit approximately 25 years ago. Smoked since she was a young woman. No occupation or environmental exposures. She does give a history of asthma, which is well controlled and is compliant with her Advair and rarely needs her rescue inhaler. She presented to the ER with chest pain and hypertension. Workup revealed a left lower lobe infiltrate versus mass. I am asked now to comment further. ALLERGIES: Listed to: 1. SUCCINYLCHOLINE. 2. ASPIRIN. MEDICATIONS AT HOME: - generic Advair 250/50 - albuterol as needed - simvastatin - gabapentin - Prolia - vitamin D3 - ALPHAGEN - amlodipine PAST MEDICAL HISTORY: Significant for: 1. Asthma. 2. Underlying hypertension. 3. Previously resected pancreatic adenoma. 4. Appendectomy and hysteroscopy. FAMILY HISTORY: Significant for several family members with cancers. SOCIAL HISTORY: Reformed tobacco as outlined above. No alcohol. REVIEW OF SYSTEMS: As per the HPI. Constitutional: Negative for any recent fevers or chills. HEENT: Unremarkable for double or blurred vision. Pulmonary: As per the HPI. Cardiac: Unremarkable for angina. GI: Unremarkable for nausea or vomiting . : Unremarkable for dysuria or urgency. Neurologic: Unremarkable for seizures or strokes. Endocrine: Unremarkable for diabetes or thyroid disease. Dermatologic: Unremarkable for rashes or psoriasis. Musculoskeletal: Unremarkable for any new arthralgia or myalgias. Neurologic: Unremarkable. Psychiatric: Unremarkable. PHYSICAL EXAMINATION: Pleasant female in no distress. Blood pressure 118/65, heart rate 80s and regular. She is afebrile with a temperature of 98.9. HEENT: Otherwise normocephalic, atraumatic. Pupils equal and reactive. Neck is supple. Trachea midline. Mucous membranes, nose and mouth are moist. Airway is class 2. Chest shows diminished but symmetric expansion. Percussion is reasonable. Tactile fremitus is palpable. There are some faint crackles at the extreme left base with rhonchi in that area that clear completely with cough. No other focal adventitious breath sounds are identified. Cardiac exam is regular with no gallop. Peripheral pulses palpable. No edema. Abdomen is soft, nontender, normal active bowel sounds. No convincing organomegaly or masses. Extremities no cyanosis or clubbing. Neurologically she is awake, alert and appropriate. Psychiatric shows normal mood and affect. Pulse ox 97% on 2 liters nasal cannula. White blood cell count 10.8, hemoglobin 11.8, platelet count 295,000, 61% segs, no bands. Sodium 141, K of 4.2, chloride 111, CO2 26, BUN [address], [address] scan of the chest does show at density at the left base, approximately 4 cm conglomerate that does have air bronchograms within it. No significant adenopathy is noted. IMPRESSION: 1. Abnormal x-ray/CT scan. 2. Underlying asthma. 3. Previous history of tobacco abuse. RECOMMENDATIONS: At this point, I am in full agreement with her current antimicrobials. There are some air bronchograms within the density in question, and quite likely still could be primarily infiltrate. In view of the above, I would suggest a full two weeks of antimicrobials. She certainly can be allowed discharge when appropriate. I will see her in the office with a followup CT scan in 3-4 weeks. She can certainly call me sooner if problems arise, especially if there is increased pain or any worsening of her symptoms. I discussed this at length with her and she is in full agreement. Will proceed as outlined above.
[2019-06-25] MEDS ORDERED: CEFD300CAP PO (10:17)
[2019-06-25] MEDS ORDERED: AZIT500T2 PO (10:17)
--- NOTE | 2019-06-26 10:55 | DS.PDOC ---
Discharge Summary General Date of Admission Jun 22, 2019 at 16:41 Date of Discharge 06/25/19 Discharge Summary PROCEDURES PERFORMED DURING STAY: [None]. 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 She had got up and gone to the bathroom and then came back and lay down on the bed on her side and suddenly felt the cramp like pain in the lower part of the chest below both breasts radiating bilaterally to the sides. She then had a CT angio of the chest. which was negative of PE or dissection or aneurysm or pleural or pericardial effusion. However it did show a nodular peripheral pleu ral-based density in the left lower lobe. There are air bronchograms within this density. This measures 4.4 x 3.0 x 2.3 cm in overall dimension. Radiologist felt it to be Bronchogenic malignancy versus pneumonia. Chest pain resolved. Nonspecific unlikely cardiac no ekg changes no elevation in cardiac markers, not related to exertion could be musculoskeletal, esophageal reflux and esophageal spasm. will continue with Pantoprazole and gi cocktail prn. Pneumonia vs Lung malignancy. the opacity seen at the LLL has air bronchograms in it. will treat as pneumonia for now with 7 days of antibiotics. cefdinir and azithromycin for community acquired pneumonia procalcitonin is normal so very low possibility of a bacterial infection. Follow up with Dr Miguel in [address] chest. Hypertension continue amlodipine and cozaar Asthma will continue home advair Hyperlipidemia continue statin Advance directives: Patient wants to be Full code. She has a HCP. DISCHARGE MEDICATIONS: Please see below. ALLERGIES: Please see below. PHYSICAL EXAMINATION ON DISCHARGE: VITAL SIGNS: Please see below. General Exam: Positive: Alert, Cooperative, No Acute Distress Eye Exam: Positive: PERRLA, Conjunctiva & lids normal, EOMI; Negative: Sclera icteric ENT Exam: Positive: Atraumatic, Mucous membr. moist/pink, Pharynx Normal Neck Exam: Positive: Supple; Negative: JVD, thyromegaly Chest Exam: Positive: Clear to auscultation, Normal air movement Heart Exam: Positive: Rate Normal, Regular Rhythm, Normal S1, Normal S2; Negative: Murmurs, Rubs Telemetry: Positive: No significant arrhythmia Abdomen Exam: Positive: Normal bowel sounds, Soft; Negative: Tenderness, Hepatospenomegaly Extremity Exam: Positive: Normal pulses; Negative: Clubbing, Cyanosis, Edema Skin Exam: Positive: Nl turgor and temperature; Negative: Breakdown, Lesion LABORATORY DATA: Please see below. ACTIVITY: [As tolerated]. DIET: As tolerated DISPOSITION: 01 Home, Self-Care. DISCHARGE INSTRUCTIONS: Follow up with Dr Miguel in [address] chest. PMD in 1 week ITEMS TO FOLLOWUP ON ON OUTPATIENT: CT chest in 2 weeks DISCHARGE CONDITION: [Stable]. TIME SPENT ON DISCHARGE: 35 minutes. Vital Signs/I&Os Vital Signs Date Time Temp Pulse Resp B/P (MAP) Pulse Ox O2 Delivery O2 Flow Rate FiO2 06/25/19 06:00 98.9 85 16 118/65 (82) 97 06/22/19 17:45 Room Air I&O- Last 24 Hours up to 6 AM 06/26/19 06:00 Intake Total 286 ml Output Total 300 ml Balance -14 ml Laboratory Data CBC/BMP Item Value Date Time White Blood Count 10.8 10^3/uL H 06/25/19527 Red Blood Count 3.74 10^6/uL L 06/25/19527 Hemoglobin 11.8 g/dl L 06/25/19527 Hematocrit 36.1 % 06/25/19527 Mean Corpuscular Volume 96.5 fl H 06/25/19527 Mean Corpuscular Hemoglobin 31.6 pg 06/25/19527 Mean Corpuscular Hemoglobin Concent 32.7 g/dl 06/25/19527 Red Cell Distribution Width 14.6 % H 06/25/19527 Platelet Count 295 10^3/uL 06/25/19527 Immature Granulocyte % (Auto) 0.5 % 06/25/19527 Neutrophils (%) (Auto) 61.0 % 06/25/19527 Lymphocytes (%) (Auto) 17.9 % L 06/25/19527 Monocytes (%) (Auto) 12.1 % H 06/25/19527 Eosinophils (%) (Auto) 7.4 % H 06/25/19527 Basophils (%) (Auto) 1.1 % H 06/25/19527 Neutrophils # (Auto) 6.6 10^3/uL 06/25/19527 Lymphocytes # (Auto) 1.9 10^3/uL 06/25/19527 Monocytes # (Auto) 1.3 10^3/uL H 06/25/19527 Eosinophils # (Auto) 0.8 10^3/uL H 06/25/19527 Basophils # (Auto) 0.1 10^3/uL 06/25/19527 Nucleated Red Blood Cells % (auto) 0.0 % 06/25/19527 Sodium Level 141 MEQ/L 06/25/19527 Potassium Level 4.2 MEQ/L 06/25/19527 Chloride Level 111 MEQ/L H 06/25/19527 Carbon Dioxide Level 26 MEQ/L 06/25/19527 Anion Gap 4 MEQ/L L 06/25/19527 Blood Urea Nitrogen 15 MG/DL 06/25/19527 Creatinine 0.99 MG/DL 06/25/19527 Glomerular Filtration Rate 57.6 06/25/19527 Fasting Glucose 108 MG/DL H 06/25/19527 Calcium Level 9.0 MG/DL 06/25/19527 Microbiology Microbiology 06/22/19 Respiratory Virus Panel (PCR) ([facility]) - Final, Complete 06/22/19 Blood Culture - Preliminary, Resulted No Growth after 72 hours. All specime... 06/22/19 Blood Culture - Preliminary, Resulted No Growth after 72 hours. All specime... Discharge Medications Scheduled Amlodipine Besylate (Amlodipine Besylate) 5 Mg Tab, 5 MG PO QPM, (Reported) Azithromycin (Azithromycin) 500 Mg Tablet, 500 MG PO DAILY start on 06/26/19 Brimonidine Tartrate (Alphagan P) 100 Drop/5 Ml Soln, 1 DROP OU BID, (Reported) Cefdinir (Cefdinir) 300 Mg Capsule, 1 CAP PO BID start on 06/26/19 Cholecalciferol (Vitamin D3) (Vitamin D3) 1,000 Unit Tab, 1,000 UNIT PO DAILY, (Reported) Denosumab Injection (Prolia) 60 Mg/1 Ml Syringe, 60 MG SC ASDIRECTED, (Reported) EVERY 6 MONTHS, DUE JUL/AUG PER PT Fluticasone Propion/Salmeterol (Wixela 250-50 Inhub) 1 Each Blst.w.dev, 1 PUFF INH BID, (Reported) Gabapentin (Gabapentin) 300 Mg Cap, 300 MG PO TID, (Reported) Losartan Potassium (Losartan Potassium) 50 Mg Tablet, 50 MG PO QPM, (Reported) Simvastatin (Simvastatin) 20 Mg Tab, 20 MG PO QPM, (Reported) Vit A/Vit C/Vit E/Zinc/Copper (Preservision Areds Softgel) 1 Each Capsule, 1 CAP PO BID, (Reported) Scheduled PRN Acetaminophen (Acetaminophen) 500 Mg Tablet, 500 MG PO Q6H PRN for PAIN, (Reported) Propylene Glycol/Peg 400/Pf (Systane 0.3-0.4% Eye Drop) 1 Each Droperette, 1 DROP OU QID PRN for DRY EYES, (Reported) Allergies Coded Allergies: aspirin (Verified Allergy, Intermediate, ASTHMA EXACERBATION, 06/25/19) succinylcholine (Verified Allergy, Unknown, 06/22/19) TIERRA TRAN MD Jun 26, 2019 10:55
== END 2019-06-25 12:47 | disposition home or self-care (01) | DRG 195 ==
LOC: M ED 09:05 → M ED INP 16:41 → M MSPAV 20:20
PROVIDERS: ADMIT Internal Medicine Nephrology; ATTEND Internal Medicine Nephrology
DX: J18.9 Pneumonia, unspecified organism (principal); R07.89 Other chest pain; J98.4 Other disorders of lung; I10 Essential (primary) hypertension; J45.909 Unspecified asthma, uncomplicated; E78.5 Hyperlipidemia, unspecified; M54.5 Low back pain; Z90.81 Acquired absence of spleen; Z79.899 Other long term (current) drug therapy; Z88.6 Allergy status to analgesic agent; Z88.8 Allergy status to other drugs, medicaments and biological substances; Z87.891 Personal history of nicotine dependence

== ENCOUNTER → 2019-07-19 | Outpatient (CLI) | payer MEDICARE ==
[~2019-07-19] MED LIST changes: +ACET-683 PO; +AZIT500T5 PO; +CEFD300CAP PO; +FLUT1BLS2 INH; +PRESCAP PO; +PROL60SO SC; +SYST1SOL4 OU
--- NOTE | 2019-07-19 19:35 | REP ---
CT chest without contrast: History: Pneumonia. Abnormal finding left lower lobe. Comparison CT study June 22, 2019 and January 12, 2014. CT findings: There are multiple stable small sub-centimeter nodules bilaterally unchanged from the 2014 study including a right upper lobe nodule measuring 5.4 mm seen on page 28 of 94 in series 201 of today's study. There is persistent irregular nodular spiculated and pleural-based opacity in the left lower lobe measuring 4.4 cm in greatest dimension. This contains air bronchograms. This is persistent from the June 22, 2019 prior study and is considered suspicious for adenocarcinoma or other bronchogenic malignancy. No evidence of pleural effusion. No new mediastinal lymph node is seen. There are scattered normal-sized mediastinal lymph nodes in the AP window and left pretracheal lymph node chain region. Vascular calcification is again noted. There are small hepatic cysts. Opaque gallstones are visible. No bony destructive lesion is seen. Impression: Spiculated persistent nodular opacity 4.4 cm in greatest diameter in the posterior aspect of the left lower lobe. This is considered suspicious. Consider histologic sampling. Cholelithiasis. Electronically Signed by Robbie Oliver MD 07/19/2019 08:05 P
== END ==
LOC: M RAD 12:54
PROVIDERS: ATTEND Internal Medicine Pulmonary Disease
DX: K80.20 Calculus of gallbladder without cholecystitis without obstruction (principal); K76.89 Other specified diseases of liver; R91.1 Solitary pulmonary nodule; R91.8 Other nonspecific abnormal finding of lung field

== ENCOUNTER → 2019-07-24 | Outpatient (CLI) | payer MEDICARE ==
[2019-07-24 14:24] LABS: PLATELET COUNT, AUTOMATED 332 10^3/uL (150-450)
[2019-07-24 14:35] LABS: INR 1.08; PROTHROMBIN TIME 13.7 SECONDS (11.8-14.0)
[2019-07-24 14:36] LABS: PARTIAL THROMBOPLASTIN TIME 31.6 SECONDS (25.0-38.4)
== END ==
LOC: M SMT 09:35
PROVIDERS: ATTEND Internal Medicine Pulmonary Disease
DX: R91.8 Other nonspecific abnormal finding of lung field (principal)

== ENCOUNTER 2019-08-04 07:47 | Inpatient (IN) | payer MEDICARE ==
[~2019-08-04] VITALS: Ht 149.9 cm; Wt 64.7 kg
[~2019-08-04 07:47] MED LIST changes: +LIDOCAINE 1% MDV 20ML VIAL As Ordered ONE; +LORA-753 PO; -SIMV20TA2 PO; +SIMV20TA22 PO
[2019-08-04] MEDS ORDERED: PANTOPRAZOLE 40MG INJ (PROTONIX) (C9113) IV SCH (09:00)
[2019-08-04] MEDS ORDERED: MIDAZOLAM INJ 2 MG/2 ML VIAL (J2250) As Ordered ONE ×2 (10:05→10:06)
[2019-08-04] MEDS ORDERED: fentaNYL 100 MCG/2 ML INJECTION (J3010) As Ordered ONE (10:05)
[2019-08-04] MEDS ORDERED: LIDOCAINE 1% MDV 20ML VIAL As Ordered ONE (10:17)
[2019-08-04] MEDS ORDERED: KETOROLAC 30 MG/ML VIAL (J1885) As Ordered ONE (10:31)
[2019-08-04] MEDS ORDERED: MORPHINE 10 MG/ML 1ML VIAL (J2270) As Ordered ONE (10:42)
[2019-08-04] MEDS ORDERED: ONDANSETRON 4MG/2ML VIAL (J2405) IV PRN (10:45)
[2019-08-04] MEDS ORDERED: LEVALBUTEROL 1.25 MG/0.5 ML CONCENTRATE NEB NEB PRN (10:45)
[2019-08-04] MEDS ORDERED: PERCOCET 5MG/325MG TAB PO PRN ×2 (10:45)
[2019-08-04] MEDS ORDERED: NORCO, ANEXSIA 5/325MG TABLET (HYDROcodone/ACETAMINOPHEN) PO PRN (10:45)
[2019-08-04] MEDS ORDERED: LORATADINE 10 MG TAB PO PRN (10:45)
[2019-08-04] MEDS ORDERED: DENOSUMAB 60MG/1ML SYRINGE (PROLIA) (J0897 PER 1MG) (FOR ONCOLOGY) SC SCH (10:45)
[2019-08-04] MEDS ORDERED: BISACODYL 10 MG SUPP PR PRN (10:45)
[2019-08-04 11:30] VITALS: BP 170/90
[2019-08-04 11:30] LABS: BASO # 0.1 10^3/uL (0.0-0.2); BASO % 1.2 % (0.0-1.0); EOS # 0.3 10^3/uL (0.0-0.5); EOS % 3.5 % (0.0-3.0); HEMATOCRIT 37.2 % (36.0-47.0); HEMOGLOBIN 11.9 g/dl (12.0-15.5); LYMPH # 1.7 10^3/uL (1.5-5.0); LYMPH % 18.5 % (24.0-44.0); MEAN CORPUSCULAR VOLUME 96.9 fl (80.0-96.0); MONO # 0.8 10^3/uL (0.0-0.8); NEUTROPHILS % 67.4 % (36.0-66.0); PLATELET COUNT, AUTOMATED 325 10^3/uL (150-450); RED BLOOD COUNT 3.84 10^6/uL (4.00-5.40); WHITE BLOOD COUNT 8.9 10^3/uL (4.0-10.0)
--- NOTE | 2019-08-04 11:35 | REP ---
PORTABLE CHEST: AP portable view of the chest is performed. There is placement of a left chest tube after the recent chest radiograph today showed a moderate left pneumothorax status post left lung biopsy. A tiny residual left apical pneumothorax is now present. Bibasilar atelectatic changes are again noted. Electronically Signed by Berto Milner MD 08/07/2019 09:13 A
[2019-08-04 11:47] LABS: BLOOD UREA NITROGEN 17 MG/DL (7-18); CARBON DIOXIDE LEVEL 28 MEQ/L (21-32); CHLORIDE LEVEL 109 MEQ/L (98-107); CREATININE FOR GFR 0.93 MG/DL (0.55-1.30); GLOMERULAR FILTRATION RATE > 60.0 (>39); GLUCOSE, FASTING 113 MG/DL (70-100); POTASSIUM SERUM 4.2 MEQ/L (3.5-5.1); SODIUM LEVEL 141 MEQ/L (136-145)
--- NOTE | 2019-08-04 11:53 | HPE ---
DATE OF ADMISSION: 08/04/2019 The patient was seen at the urgent request of Dr. Milner for a pneumothorax after a left sided lower lobe needle biopsy. HISTORY OF PRESENT ILLNESS: The patient is a 78-year-old white female whose most current story started on June 22 when she noted chest pain in her left lower hemithorax and midback. It was not relieved with change of position and was exacerbated by deep breathing. She was found to have a left lower lobe mass which was somewhat nodular. Her pain eventually resolved and she was treated for presumed pneumonia. She was discharged three days later. She was discharged on azithromycin. Since then, her chest pain has been resolved. She does not complain of cough or sputum production, nor does she complain of shortness of breath. There has been no fevers, chills or sweats and there were none prior to her admission on 06/22. A CT angio at that time also did not show a pulmonary embolism. PAST MEDICAL HISTORY: Hypertension. Asthma. Dyslipidemia. Chronic back pain. 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 PAST SURGERIES: The above pancreatectomy and splenectomy. Two ventral hernia repairs. Dilatation and curettage. ALLERGIES: 1. ASPIRIN with asthma exacerbations. MEDICATIONS AT HOME: - Tylenol 500 mg every 6 hours as needed pain - amlodipine 5 mg at bedtime - Alphagan one drop both eyes (OU) twice a day - vitamin D3 1000 units daily - Prolia every six months intramuscularly - fluticasone salmeterol 250/50 one puff twice a day - gabapentin 300 mg three times a day - loratadine 10 gm as needed nasal congestion - losartan 50 mg every evening - Systane eye drops one four times a day as needed - simvastatin 20 mg every evening TRAVEL HISTORY: Brief sojourn to [place] many years ago. No foreign travel other than [place]. OCCUPATIONAL HISTORY: Worked in various [employer] offices. No asbestos exposure. EXPOSURES: No dogs, birds or megan sat home. No exposure to tuberculosis. HABITS: Smoked one half to one pack per day for approximately 15 years. Quit about 20 years ago. Does not imbibe alcohol. No illicit drugs. REVIEW OF SYSTEMS: CONSTITUTIONAL: Without fever, chills or sweats. NOSE: Without epistaxis. MOUTH: Has her own teeth. RESPIRATORY: See history of present illness. CARDIAC: Without prior myocardial infarction. No paroxysmal nocturnal dyspnea (PND), intermittent claudication or peripheral edema. GASTROINTESTINAL (GI): Presently without nausea, vomiting, diarrhea, constipation, melena or hematochezia. GENITOURINARY (): Without dysuria or hematuria. Without history of renal stones. ENDOCRINE: Without diabetes. Without thyroid disease. HEMATOLOGIC: Without prolonged bleeding times. Not on anticoagulants. PSYCHIATRIC: Without pathological anxieties, depression or psychoses. NEUROLOGIC: Without paresthesia, paralyses or seizures. PHYSICAL EXAMINATION: GENERAL: Well-developed, well-nourished white female in no acute distress but very anxious. VITAL SIGNS: Temperature is 98.5, heart rate 77 with a regular rate and rhythm, respiratory rate of 16 without the use of accessory muscles, who is 97% saturated on room air. Blood pressure is 190/95. EYES: Pupils equal, round and reactive to light. Extraocular motors intact. Sclera nonicteric. NOSE: Without deformity. MOUTH: Shows her mucous membranes to be pink and moist. Lips and commissures without lesions There is no thrush. Teeth are in good repair. NECK: Supple. There is no jugular venous distention, no subcutaneous emphysema. Trachea is midline. There is no lymphadenopathy and no thyromegaly. The patient has 2+ carotid upstrokes. LUNGS: Show markedly decreased breath sounds on the left with a hyperresonant percussion note. Right lung shows normal vesicular sounds without wheezes, rhonchi or rales. CARDIAC EXAM: Without murmurs, clicks, gallops or rubs. I cannot feel her point of maximal impulse (PMI). S1 and S2 are normal. ABDOMEN: Soft, nontender. Bowel sounds are positive. There is no hepatomegaly. No costovertebral angle (CVA) tenderness. EXTREMITIES: Show trace pretibial edema. No calf tenderness. No differential swelling of the upper extremities. SKIN: Warm, dry and perfused without cyanosis or mottling including that of the nail beds and the knees. NEURO: Shows II through XII intact, along with gross motor and gross sensation intact. Gait is not tested. PSYCHIATRIC: Shows her to be awake and alert, oriented times three with appropriate mood, affect and conversational. LABORATORY DATA: Her white count on 06/25 was 10.8 with a hemoglobin and hematocrit of 11.8 and 36.1. They are being repeated today. Platelet count is 332. Electrolytes were normal with a BUN and creatinine of 15 and 0.99, calcium of 9.0 and a glucose of 108. AST and ALT were normal. Chest x-ray today shows a 50% pneumothorax by volume. There is no mediastinal shift and there is no subcutaneous emphysema. Left diaphragm is a bit more depressed than I would expect. Her CT scan of 07/19/2019 shows a lobulated mass with air bronchograms, however. This is essentially not changed from her CT angio done on 06/22/2019. There is a nodule in the right upper lobe measuring about 6 mm. I do not see pathologic mediastinal lymphadenopathy. She does have a normal configuration and I do not see lesions compatible with metastasis. She does have a liver cyst in the right lobe of the liver anteriorly. IMPRESSION: 1. Acute pneumothorax status post lung biopsy. 2. Left lower lobe mass. 3. Prior history of tobacco abuse, now having abstained for the last 20-25 years. 4. Hypertension. 5. Asthma. 6. Previously resected pancreatic adenoma status post splenectomy and distal pancreatic resection. PLAN AND DISCUSSION: I will immediately place a chest tube. Because of her history of splenectomy I will put her on surgical prophylactic antibiotics. Will await her pathology. If there is no air leak I will plan to take the tube out most likely tomorrow with discharge on Wednesday.
[2019-08-04] MEDS: ceFAZolin SOD 1 GM in D5W MINI-BAG PLUS 50 ML IV SCH ×2 (11:58→19:40)
[2019-08-04] MEDS: KCL 20MEQ IN D5/NS 1000ML 1,000 ML IV SCH ×2 (11:58→23:55)
[2019-08-04] MEDS: OCUVITE 1 TAB PO SCH (12:00)
[2019-08-04] MEDS: VITAMIN D 1,000 INTERNATIONAL UNITS TABLET PO SCH (12:51)
[2019-08-04] MEDS: PANTOPRAZOLE 40MG TAB (PROTONIX) PO SCH (12:52)
[2019-08-04] MEDS: ACETAMINOPHEN TAB 650MG DOSE (2X325MG) PO PRN (13:50)
[2019-08-04] MEDS: LEVALBUTEROL 1.25 MG/0.5 ML CONCENTRATE NEB NEB SCH ×2 (13:50→20:00)
[2019-08-04] MEDS: KETOROLAC 30 MG/ML VIAL (J1885) IV SCH ×2 (15:42→21:19)
[2019-08-04] MEDS: GABAPENTIN 300 MG CAP PO SCH ×2 (15:42→21:19)
[2019-08-04 16:00] VITALS: BP 123/60
--- NOTE | 2019-08-04 17:07 | REP ---
CT-guided left lower lobe lung biopsy The procedure is performed by CLARA Christine, under the direct supervision of Dr. Milner. The patient has a history of a persistent spiculated nodular opacity measuring 4.4 cm in the greatest diameter in the posterior aspect of the left lower lobe on a CT scan dated 07/19/2019. The risks and benefits of the procedure were explained to the patient and informed consent was obtained both orally and written. Directly prior to the start of the procedure, a formal timeout was done in the exam room. The left lower lobe lung nodule was localized using CT guidance. Skin was prepped and draped in the usual sterile fashion. 3 ml of 1% lidocaine was used as a local anesthetic. Using CT guidance a 19/20 gauge coaxial needle biopsy system was inserted and advanced into the nodule. 3 core biopsy samples were obtained and sent to the lab. CT images obtained directly after the biopsy show evidence of moderate pneumothorax. The patient was placed on a 2 liters of oxygen via nasal cannula and referred to Dr. Peterson. Dr. Peterson came down to the IR department and placed a chest tube and the patient was then transferred to Dr. Peterson's care. Reviewed by CLARA May 08/04/2019 10:49 A Electronically Signed by Berto Milner MD 08/04/2019 04:58 P
[2019-08-04 20:00] VITALS: BP 154/64
[2019-08-04] MEDS: ADVAIR HFA 115/21MCG INHALER INH SCH (20:10)
[2019-08-04] MEDS: DOCUSATE SODIUM 100 MG CAP PO SCH (21:00)
[2019-08-04] MEDS: BRIMONIDINE 0.1% OPHTH SOLN 5 ML OU SCH (21:00)
[2019-08-04] MEDS: HEPARIN SOD (PORCINE) 5000 UNITS/ML VIAL SC SCH (21:18)
[2019-08-04] MEDS: LOSARTAN 50 MG TAB PO SCH (21:20)
[2019-08-04] MEDS: amLODIPine 5 MG TAB PO SCH (21:20)
[2019-08-04] MEDS: SIMVASTATIN 20 MG TAB PO SCH (21:20)
[2019-08-05] VITALS (8 sets, daily range): BP systolic 136–166; BP diastolic 62–80
[2019-08-05] MEDS: ACETAMINOPHEN TAB 650MG DOSE (2X325MG) PO PRN ×3 (01:56→14:16)
[2019-08-05] MEDS: LEVALBUTEROL 1.25 MG/0.5 ML CONCENTRATE NEB NEB SCH ×4 (02:00→20:00)
[2019-08-05] MEDS: ceFAZolin SOD 1 GM in D5W MINI-BAG PLUS 50 ML IV SCH ×3 (03:57→20:26)
[2019-08-05] MEDS: KETOROLAC 30 MG/ML VIAL (J1885) IV SCH (03:57)
[2019-08-05 05:40] LABS: BASO # 0.1 10^3/uL (0.0-0.2); BASO % 1.1 % (0.0-1.0); EOS # 0.5 10^3/uL (0.0-0.5); EOS % 4.6 % (0.0-3.0); HEMATOCRIT 37.8 % (36.0-47.0); HEMOGLOBIN 11.5 g/dl (12.0-15.5); LYMPH # 1.7 10^3/uL (1.5-5.0); LYMPH % 16.2 % (24.0-44.0); MEAN CORPUSCULAR HEMOGLOBIN 30.9 pg (27.0-33.0); MEAN CORPUSCULAR HGB CONC 30.4 g/dl (32.0-36.5); MEAN CORPUSCULAR VOLUME 101.6 fl (80.0-96.0); MONO % 9.5 % (0.0-5.0); NEUTROPHILS % 68.2 % (36.0-66.0); PLATELET COUNT, AUTOMATED 287 10^3/uL (150-450); RED BLOOD COUNT 3.72 10^6/uL (4.00-5.40); WHITE BLOOD COUNT 10.3 10^3/uL (4.0-10.0)
[2019-08-05 06:00] LABS: CALCIUM LEVEL 8.8 MG/DL (8.8-10.2); CREATININE FOR GFR 1.04 MG/DL (0.55-1.30); GLOMERULAR FILTRATION RATE 54.4 (>39); POTASSIUM SERUM 4.7 MEQ/L (3.5-5.1)
[2019-08-05] MEDS: OCUVITE 1 TAB PO SCH (08:03)
[2019-08-05] MEDS: VITAMIN D 1,000 INTERNATIONAL UNITS TABLET PO SCH (08:03)
[2019-08-05] MEDS: PANTOPRAZOLE 40MG TAB (PROTONIX) PO SCH (08:03)
[2019-08-05] MEDS: HEPARIN SOD (PORCINE) 5000 UNITS/ML VIAL SC SCH ×2 (08:03→20:26)
[2019-08-05] MEDS: GABAPENTIN 300 MG CAP PO SCH ×3 (08:03→20:27)
[2019-08-05] MEDS: BRIMONIDINE 0.1% OPHTH SOLN 5 ML OU SCH ×2 (08:04→20:28)
[2019-08-05] MEDS: DOCUSATE SODIUM 100 MG CAP PO SCH ×2 (08:04→20:28)
[2019-08-05] MEDS: MOM 30ML SUSPENSION UDC PO SCH (08:04)
[2019-08-05] MEDS: ADVAIR HFA 115/21MCG INHALER INH SCH ×2 (08:31→20:01)
--- NOTE | 2019-08-05 09:31 | REP ---
REASON: History of pneumothorax. COMPARISON: 08/04/2019 Left-sided thoracotomy tube status quo. Cardiomediastinal silhouette and lung hinkle are unchanged. There is a tiny left apical pneumothorax, status quo. The osseous structures are unchanged. IMPRESSION: No change. Electronically Signed by Ronald Hollingsworth DO 08/05/2019 12:18 P
--- NOTE | 2019-08-05 11:17 | IPN ---
DATE: 08/05/2019 Ms. Treviño is doing much better this morning. Her pain is much better controlled. She is breathing well and now tolerating the chest tube. Her vital signs show a T-max of 98.3 with a heart rate that ranges between 80 and 91 in a sinus rhythm. Respiratory rate at a constant 18 who is 94 to 97% saturated, now on room air and her blood pressure is ranging between 146/72 to 136/68. Her intake and output over the past 24 hours has been recorded as 470 in and 6 out. I suspect the intake and output (I and Os) are a bit off. She weighs 64.7 kg today compared to 63.5 kg yesterday. PHYSICAL EXAMINATION: I hear inspiratory and expiratory wheezing on both sides secondary to her known asthma. Percussion note is full to the diaphragm. Cardiac exam is without murmurs, clicks, gallops or rubs. I cannot feel her point of maximal impulse (PMI). S1 and S2 are normal. Abdomen is soft and nontender. Bowel sounds are positive. No hepatomegaly. No costovertebral angle (CVA) tenderness. Extremities show no pretibial edema. No calf tenderness. No differential swelling of the upper extremities. Skin is warm, dry and perfused without cyanosis or mottling including that of the nail beds and the knees. Neck is supple. There is no jugular venous distention. No subcutaneous emphysema. Trachea is midline. Mouth shows her mucous membranes to be pink and moist. Lips and commissures without lesions. No thrush. Eyes show her pupils to be equal, reactive. Extraocular muscles intact. Sclera anicteric. Neuro shows II through XII intact. Gross motor and gross sensation intact. Gait is not tested. Psychiatric shows her to be awake, alert and oriented times three with appropriate mood, affect and conversational. Her white count today is 10.3 with hemoglobin and hematocrit of 11.5, and 37.8, and stable. Platelet count is 287, stable and differential shows 68% neutrophils, 16% lymphocytes, 9% monocytes. There are no immature forms. No toxic granulations. Her electrolytes are normal with a BUN and creatinine, however, of 23 and 1.04, slightly up from 17 and 0.93 yesterday. Glucose is 112 with a calcium of 8.8. Her chest x-ray today shows her lung fully expanded to the chest wall. Chest tube is in good place. There is no subcutaneous emphysema. Costophrenic angles are sharp. There are no infiltrates either on the PA or the lateral view. The site of the needle biopsy is evident. IMPRESSION: 1. Pneumothorax, status post left lower lobe transthoracic biopsy. 2. Left lower lobe mass, pathology pending. 3. History of tobacco abuse. 4. Hypertension. 5. Asthma. 6. 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 PLAN AND DISCUSSION: I will take her chest tube off suction today and put it to water seal. If all goes well, will plan to remove the chest tube in the morning and perhaps even send her home later in the day after a 6 hour interval chest x-ray. I will discontinue her Toradol and encourage by mouth intake.
[2019-08-05] MEDS: LOSARTAN 50 MG TAB PO SCH (20:27)
[2019-08-05] MEDS: SIMVASTATIN 20 MG TAB PO SCH (20:27)
[2019-08-05] MEDS: amLODIPine 5 MG TAB PO SCH (20:27)
[2019-08-06] VITALS: BP_SYST 117; BP_SYST 118; BP_DIAS 56; BP_DIAS 61
[2019-08-06] MEDS: LEVALBUTEROL 1.25 MG/0.5 ML CONCENTRATE NEB NEB SCH ×3 (02:00→14:10)
[2019-08-06] MEDS: ceFAZolin SOD 1 GM in D5W MINI-BAG PLUS 50 ML IV SCH (03:58)
[2019-08-06 04:00] VITALS: BP 157/71
[2019-08-06 04:47] LABS: BASO # 0.1 10^3/uL (0.0-0.2); BASO % 1.1 % (0.0-1.0); EOS # 0.8 10^3/uL (0.0-0.5); EOS % 7.2 % (0.0-3.0); HEMATOCRIT 36.3 % (36.0-47.0); HEMOGLOBIN 11.4 g/dl (12.0-15.5); LYMPH % 18.5 % (24.0-44.0); MEAN CORPUSCULAR HEMOGLOBIN 31.4 pg (27.0-33.0); MEAN CORPUSCULAR HGB CONC 31.4 g/dl (32.0-36.5); MONO % 9.2 % (0.0-5.0); NEUTROPHILS # 6.7 10^3/uL (1.5-8.5); NEUTROPHILS % 63.6 % (36.0-66.0); PLATELET COUNT, AUTOMATED 289 10^3/uL (150-450); RED BLOOD COUNT 3.63 10^6/uL (4.00-5.40); WHITE BLOOD COUNT 10.5 10^3/uL (4.0-10.0)
[2019-08-06 05:06] LABS: CALCIUM LEVEL 9.2 MG/DL (8.8-10.2); CREATININE FOR GFR 1.11 MG/DL (0.55-1.30); GLOMERULAR FILTRATION RATE 50.5 (>39); POTASSIUM SERUM 4.2 MEQ/L (3.5-5.1)
[2019-08-06 08:00] VITALS: BP 156/74
[2019-08-06] MEDS: MOM 30ML SUSPENSION UDC PO SCH (09:00)
[2019-08-06] MEDS: DOCUSATE SODIUM 100 MG CAP PO SCH (09:00)
[2019-08-06] MEDS: OCUVITE 1 TAB PO SCH (09:04)
[2019-08-06] MEDS: BRIMONIDINE 0.1% OPHTH SOLN 5 ML OU SCH (09:04)
[2019-08-06] MEDS: VITAMIN D 1,000 INTERNATIONAL UNITS TABLET PO SCH (09:04)
[2019-08-06] MEDS: HEPARIN SOD (PORCINE) 5000 UNITS/ML VIAL SC SCH (09:04)
[2019-08-06] MEDS: PANTOPRAZOLE 40MG TAB (PROTONIX) PO SCH (09:04)
[2019-08-06] MEDS: GABAPENTIN 300 MG CAP PO SCH (09:04)
[2019-08-06] MEDS: ADVAIR HFA 115/21MCG INHALER INH SCH (09:24)
--- NOTE | 2019-08-06 10:19 | REP ---
REASON FOR EXAM: Followup. COMPARISON: 08/05/2019 There is no significant change from the prior exam other than the fact that the lung hinkle are hypo-expanded today compared to yesterday. Thoracotomy tube is unchanged. The cardiomediastinal silhouette is stable. There is no change in the osseous structures. IMPRESSION: No change other than technique. Electronically Signed by Ronald Hollingsworth DO 08/06/2019 11:42 A
[2019-08-06 12:00] VITALS: BP 156/73
--- NOTE | 2019-08-06 16:26 | ECGEPIP ---
[facility] Test Date: 2019-08-06 Pat Name: OLI PHAM Department: Room: S9077-17 Gender: Female Pain Management Specialist: : 1940 Requested By: Bon Hope Order Number: [id number] Reading MD: Bon Hope Measurements Intervals [place] Rate: 86 P: 48 NM: 187 QRS: 40 QRSD: 83 T: 21 QT: 350 QTc: 419 Interpretive Statements SINUS RHYTHM LOW QRS VOLTAGE IN PRECORDIAL LEADS Poor R-wave progression Electronically Signed on 08-06-2019 16:26:30 EST by Bon Hope
--- NOTE | 2019-08-06 18:45 | CR ---
DATE OF CONSULTATION: 08/06/2019 REFERRING PHYSICIAN: Dr. Salbador Peterson. REASON FOR CONSULTATION: Sinus node dysfunction (6.2 second episode of asystole). HISTORY OF PRESENT ILLNESS: Nella Gutierrez is a pleasant 78-year-old woman with no previously known heart disease, who has systemic hypertension, asthma and hyperlipidemia. She was hospitalized 08/04/2019 for management of a left pneumothorax that occurred following a left-sided lower lobe needle biopsy. Approximately an hour after her left-sided chest tube was removed today, she was documented to have a 6.2 second episode of asystole and I reviewed the rhythm strip. There was a lot of baseline noise during the asystole portion, which made identification of P wave activity difficult. Also observed on her rhythm strip were episodes of 2:1 type second degree atrioventricular (AV) block with narrow QRS complexes. Patent denies any episodes of presyncope, syncope or lightheadedness. She does report that about an hour after taking her medications this morning, that she had a sensation like the medications were stuck in her throat or upper chest and she tried to release that by trying to force the medications up. She was doing this manuver to try to force the medications up. She felt warm for several seconds, but did not have any dizziness or lightheadedness. There has been no abdominal pain, severe pain, nausea, vomiting or increase in sensation or abdominal bloating. No exertional chest, neck, jaw or upper extremity pain, tightness, squeezing or heaviness. She has chronic exertional dyspnea with above ordinary activity, which has been stable. No orthopnea or paroxysmal nocturnal dyspnea (PND). No leg or ankle swelling. No palpitations. No embolic events. No intermittent claudication symptoms. PAST MEDICAL AND SURGICAL HISTORY: 1. Systemic hypertension. 2. Asthma. 3. Dyslipidemia. 4. Chronic back pain. 5. 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 6. Two ventral hernia repairs. 7. Dilation and curettage (D and C). 8. Recent left lower lobe needle biopsy with subsequent left-sided pneumothorax, for which she had a chest tube removed today. ADVERSE DRUG REACTIONS: ASPIRIN (resulting in asthma exacerbations). MEDICATIONS PRIOR TO ADMISSION: - Tylenol 500 mg every 6 hours as needed - amlodipine 5 mg daily - Alphagan one drop both eyes twice a day - vitamin D3 1000 units daily - Prolia intramuscular every 6 months - fluticason/salmeterol 250/50 one inhalation twice a day - gabapentin 300 mg three times a day - loratadine 10 mg as needed for congestion - losartan 50 mg every evening - Systane eye drops four times a day as needed - simvastatin 20 mg every evening SOCIAL HISTORY: Retired. 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 Prior smoking history for which she quit 20 years ago. No alcohol. No illicit drugs. REVIEW OF SYSTEMS: A 10-point review of systems negative other than that listed in the history of present illness (HPI) above. CURRENT MEDICATIONS IN HOSPITAL: - <<7:07>> every 6 hours as needed - hydrocodone/acetaminophen one tablet every 3 hours as needed (not administered thus far) - amlodipine 5 mg every evening - Dulcolax 2 mg every 4 hours as needed per rectum (none administered thus far) - Alphagan one drop twice a day both eyes - Colace 100 mg by mouth twice a day - gabapentin 300 mg three times a day - heparin 5000 units subcutaneous every 12 hours - Xopenex 1.25 mg every 6 hours and 1.25 mg every 2 hours as needed for wheezing - Claratin 10 mg as needed daily for allergies - losartan 50 mg every evening - Milk of Magnseia (MOM) 30 mL daily - multivitamin one daily - Zofran 4 mg every 4 hours as needed intravenous (IV) (none administered thus far) - Percocet one tablet every 4 hours as needed (none administered thus far) - Percocet two tablets every 4 hours as needed (last administered 08/06/2019 at 3:55 a.m.) - Protonix 40 mg by mouth daily - Advair HFA two puffs twice a day - Zocor 20 mg every evening - vitamin D 1000 units by mouth daily PHYSICAL EXAMINATION: Pleasant, overwieght-appearing elderly woman who was not in any respiratory or psychologic distress. An extensive foam tape bandage was over the left side of the chest and extending into the pectoral region up. No gross head, facial or skeletal deformities. Temperature 97.7, pulse 82 (record), respiratory rate 18, blood pressure 156/74, oxygen saturation 94% on room air. No conjunctival pallor, scleral icterus or xanthomas. Multiple missing teeth and multiple dental fillings. Mucous was moist too, without pallor or stenosis. Jugular venous pulsations were at 4 cm. Trachea midline. No palpable thyroid. No clubbing, nailbed stenosis or splinter hemorrhages. No skin lesions, skin pallor or icterus. Oriented to person, place and time. Mood and affect normal. Curvature of the spine normal. Gait normal. Gross motor strength and tone normal. No abnormal muscle atrophy, fasciculations, or tremors. Respiratory expansion and effort was good. No crackles or wheezes. No palpable apex beat. No parasternal lifts, heaves or thrills or palpable heart sounds. First and second heart sounds were normal. No S3 or S4 or murmurs.. Carotids were normal in volume and contour and without bruits. No palpable abdominal aorta. No abdominal bruits. Femoral pulses normal. Pedal pulses normal. No peripheral edema. No varicose veins. Abdomen was obese, soft and nontender with normal bowel sounds. No hepatosplenomegaly or organomegaly. Liver span difficult to assess due to abdominal obesity. Stool for occult blood not presently indicated. INVESTIGATIONS: Electrocardiogram 08/06/2019 at 10:40 a.m. shows sinus rhythm, 86 bpm, NC interval 187 ms, poor R wave progression, low precordial voltages, otherwise, within normal limits. PA and lateral chest x-ray 08/06/2019 at 6:00 a.m. was independently visualized by me. It shows chest tube in situ, left side, with the tip of the chest tube in the left upper lung field. Hypoinflation of the right lung field. Calcification of fabien aortic arch. Difficult to steel fixer for cardiomegaly given the suboptimal inflation. No pleural effusions. Laboratory work 08/06/2019 was reivewed: WBC 10.5, hemoglobin 11.4, hematocrit 36.3, platelets 289. Sodium 144, potassium 4.2, chloride 111, CO2 26, BUN 22, creatinine 1.11, estimated GFR 50.5, glucose 128, calcium 9.2. ASSESSMENT AND RECOMMENDATIONS: 1. Sinus node dysfunction (6.2 second episode of asystole (observed on telemetry this morning, after which time the patient was not having any lightheadedness, presyncope or syncope)). The patient describes that about an hour after taking her morning medications today, that she had an episode where it felt like the medications where stuck in her throat or upper chest and she tried some manuvers to try to get rid of that sensation. I suspect that she had transient increased vagal tone (i.e., vasovagal induced transiend sinus node dysfunction resulting in the brief period of asystole). She has a narrow QRS complex on her ECG. As noted below, she had transient 2:1 second degree AV block observed this morning with a narrow QRS complex, which was asymptomatic. AGain, I think that is most likely due to increased vagal tone. She is not on any medications to cause sinus node dysfunction or AV block. Because the patient has been asymptomatic with the episode of transient asystole, and her self-induced vagal manuver likely was the explanation, and that she is not symptomatic with a narrow complex transient 2:1 second degree AV block, my recommendation is to monitor this patient further with an outpatient 30 day event monitor. At this point, I do not think there is sufficient evidence to justify implantation of a permanent pacemaker in this patient, who has been asymptomatic and has a narrow QRS complex. I discussed this plan with Dr. Salbador Peterson by telephone, who is agreeable with this approach. 2. Systemic hypertension. Variable blood pressure control in hospital. For now, patient will continue her usual dose of losartan and amlodipine. Assisted evaluation and management remains with this patient's primary care provider (PCP). 3. Hypercholesterolemia. Patient is maintained on simvastatin. No known atherosclerotic cardiovascular disease (ASCVD) or diabetes. Plan will be for the patient to remain on simvastatin. Assisted evaluation and management remains with the patient's PCP. I suggest the patient be on a more whole fruit, plant-based diet. 4. Transient 2:1 type second degree AV block with narrow QRS complex (i.e., second degree AV block, other). Asymptomatic. Likely due to transient increased vagal tone. As mentioned above, the plan will be to monitor her with a 30 day event monitor as an outpatient. She is not symptomatic with this rhythm. Thank you kindly for asking me to participate in the cardiac care of Nella Gutierrez.
--- NOTE | 2019-08-07 07:30 | REP ---
REASON: History of pneumothorax. Recent removal of chest tube. COMPARISON: Earlier today. The left side thoracotomy tube has been removed. There is a tiny left apical pneumothorax unchanged. There are no new lung field abnormalities. The cardiomediastinal silhouette is stable. The osseous structures are unchanged. IMPRESSION: Status post left sided thoracotomy tube removal. Minimal left apical pneumothorax status quo. Electronically Signed by Ronald Hollingsworth DO 08/07/2019 12:07 P
--- NOTE | 2019-08-07 10:19 | DSES ---
DATE OF ADMISSION: 08/04/2019 DATE OF DISCHARGE: 08/06/2019 DISCHARGE DIAGNOSES: 1. Pneumothorax, status post left lower lobe transthoracic biopsy. 2. Left lower lobe mass, pathology pending. 3. History of tobacco abuse. 4. Hypertension. 5. Asthma. 6. Previously resected pancreatic adenoma, status post splenectomy and distal pancreatic resection. 7. Sinus node dysfunction. HOSPITAL COURSE: The patient is a 78-year-old white female who has a known left lower lobe mass, which is not improved and therefore underwent a CT guided needle biopsy. She suffered a significant pneumothorax and therefore an anterosuperior chest tube was placed on the left. Chest tube was removed on the second hospital day. There was no air leak on the first hospital day. Her chest x-ray 6 hours after removal of the chest tube did not show a pneumothorax. She is being discharged on her home medications, which include: - Tylenol 500 mg every 6 hours as needed for pain - amlodipine 5 mg at night - Alphagan one drop OU twice a day - vitamin D3 1000 units daily - Wixela 250/50 one puff twice a day - gabapentin 300 mg by mouth three times a day - loratadine 10 mg as needed for allergies - Losartan 50 mg at night - simvastatin 20 mg by mouth at night Approximately 3 hour prior to discharge and approximately 1 hour after removal of the chest tube, the patient developed a 6 second, followed by a 3 second bradycardic pause. I therefore consulted Dr. Hope of cardiology, who felt that she could go home without delay, although he will see her back in his office for implantation of a 30 day continuous recorder. She was asymptomatic during the pauses. She will return to see Dr. Gillette, her pulmonary care physician, for results of the biopsy when they return in 1 week. Her discharge white count is 10.5 with a hemoglobin and hematocrit of 11.4 and 36.3, essentially unchanged from her admission findings. Platelet count is 289. Electrolytes are normal with a BUN and creatinine of 22 and 1.1, glucose of 128, calcium 9.2. Her chest x-ray shows her lung fully expanded to the chest wall without residual pneumothorax.
--- NOTE | 2019-08-07 15:52 | RO ---
DATE OF PROCEDURE: 08/04/2019 PREPROCEDURE DIAGNOSIS: Left pneumothorax status post a lung biopsy. POSTPROCEDURE DIAGNOSIS: Left pneumothorax status post a lung biopsy. PROCEDURE: Insertion of left superior anterior chest tube. SURGEON: Salbador Peterson MD SERVICE TECH/WELDER: ANESTHESIA: DESCRIPTION OF PROCEDURE: Under satisfactory moderate sedation achieved with 4 mg of Versed the patient was prepped and draped in the usual sterile fashion. Skin and subcutaneous tissue, fascia and pleura were infiltrated with 1% lidocaine. An incision was made and a tunnel was created in the chest. A #20 chest tube was placed without difficulty and secured to the chest wall with #2 Tevdek suture. The patient tolerated the procedure well, and a chest x-ray is pending. [facility]
--- NOTE | 2019-08-09 12:25 | REP ---
CHEST, SINGLE VIEW: Single view of the chest is performed. Patient underwent left lung biopsy. There is a pneumothorax in predominantly the left apex with the air gap approximately 4 cm. Atelectatic changes are seen in the lung bases due to the expiratory phase of respiration. 2-hour followup radiographic will be performed. Electronically Signed by Berto Milner MD 08/07/2019 09:09 A
== END 2019-08-06 15:54 | disposition home or self-care (01) | DRG 200 ==
LOC: M IRPRO 07:47 → M PCU 11:21
PROVIDERS: ADMIT Thoracic Surgery (Cardiothoracic Vascular Surgery); ATTEND Thoracic Surgery (Cardiothoracic Vascular Surgery)
PROC: 0W9B30Z Drainage of Left Pleural Cavity with Drainage Device, Percutaneous Approach (ICD-10-PCS; 2019-08-04)
PROC: 0BBJ3ZX Excision of Left Lower Lung Lobe, Percutaneous Approach, Diagnostic (ICD-10-PCS; principal; 2019-08-04 09:00)
DX: J95.811 Postprocedural pneumothorax (principal); C34.32 Malignant neoplasm of lower lobe, left bronchus or lung; J45.909 Unspecified asthma, uncomplicated; I10 Essential (primary) hypertension; I44.1 Atrioventricular block, second degree; Z79.899 Other long term (current) drug therapy; E78.5 Hyperlipidemia, unspecified; Z88.6 Allergy status to analgesic agent; Z87.891 Personal history of nicotine dependence; Z90.81 Acquired absence of spleen

== ENCOUNTER → 2019-08-23 | Outpatient (CLI) | payer MEDICARE ==
[~2019-08-23] MED LIST changes: -LIDOCAINE 1% MDV 20ML VIAL As Ordered ONE
--- NOTE | 2019-08-24 10:37 | REP ---
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 COMPARISONS: Comparison chest CT studies June 22, 2019 and July 19, 2019. TECHNIQUE: 60 minutes following the intravenous injection of a 8.57 mCi dose of F-18 FDG, three-dimensional PET scintigraphy is acquired from the skull base to the proximal thighs. Triplanar noncontrast CT scanning is acquired through the same anatomic range for attenuation correction, and image registration with scan parameters optimized to minimize radiation exposure to the patient. PET scintigraphy and CT datasets were fused and displayed on a workstation with multiplanar and projection display capability. PET/CT FINDINGS: There is a subcentimeter normal-sized lymph node in the superficial lobe of the left parotid gland demonstrating hypermetabolic activity. Maximum standard uptake value within this is 13.63. Head and neck soft tissues are otherwise unremarkable. The biopsy proven malignancy in the left lower lobe shows hypermetabolic uptake, mild in degree, with maximum standard uptake value within this lesion 4.59. The sub-centimeter nodule in the right upper lobe does not show hypermetabolic uptake, maximum SUV value 1.32. No other abnormal pulmonary parenchymal hypermetabolic activity is seen. There are no suspiciously hypermetabolic lymph nodes in the mediastinum or hilar regions on either side. In the abdomen and pelvis, there is no abnormal hypermetabolic uptake. Incidental findings include cholelithiasis and ventral hernia repair. IMPRESSION: The left lower lobe malignant mass is mildly hypermetabolic. There is no evidence of hilar or mediastinal hypermetabolic adenopathy. The nodule in the right upper lobe is small and not visibly hypermetabolic. There is a hypermetabolic normal-sized lymph node in the left parotid gland of uncertain significance. Unreviewed
== END ==
LOC: M PLARAD 12:15
PROVIDERS: ATTEND Internal Medicine Pulmonary Disease
DX: C34.32 Malignant neoplasm of lower lobe, left bronchus or lung (principal)
CPT/HCPCS: 78815; A9552

== ENCOUNTER → 2019-10-05 | Outpatient (CLI) | payer MEDICARE, BC ==
[~2019-10-05] MED LIST changes: -MECL12.575 PO; +MECL12.589 PO; +VITA100054 PO
--- NOTE | 2019-10-05 11:49 | REP ---
CT of the chest without IV contrast: Comparisons are 03/02/2019, 06/22/2019 and 01/12 2014. The patient has a biopsy-proven pleural-based malignancy posteriorly in the superior segment of the left lower lobe on image 51 today measuring 3.0 cm transverse diameter. This is unchanged in size from 07/19/2019 and 06/22/2019. There are several other stable lung nodules, unchanged from 01/12/2014 on pages 30, 31, 39, 49, and 54. There is no adenopathy in the mediastinum or in the right or left ya. This is unchanged. There is a stable 7 mm calcification at the thoracic inlet on the right, granuloma versus vascular atheroma, unchanged. The thoracic aorta is unremarkable except for calcified atheroma. Cardiac size is normal. There is calcified atheroma in the coronary arteries. Upper abdomen: There is no adrenal mass. There are multiple gallbladder calculi. There is a 2.3 mm hypodensity in the hepatic left lobe medial segment and in 10 ml hypodensity in the hepatic right lobe. These are unchanged from 06/22/2019 that are likely cysts. Impression: The patients known biopsy-proven malignancy in the superior segment of the left lower lobe is unchanged in size. There are other stable findings as described. Electronically Signed by Berto Avina MD 10/05/2019 11:41 A
== END ==
LOC: M RAD 10:51
PROVIDERS: ATTEND Thoracic Surgery (Cardiothoracic Vascular Surgery)
DX: C34.32 Malignant neoplasm of lower lobe, left bronchus or lung (principal)

== ENCOUNTER → 2019-10-09 | Outpatient (CLI) | payer MEDICARE, BC ==
[2019-10-09 14:00] LABS: HEMATOCRIT 40.1 % (36.0-47.0); MEAN CORPUSCULAR HEMOGLOBIN 31.3 pg (27.0-33.0); MEAN CORPUSCULAR HGB CONC 32.4 g/dl (32.0-36.5); MEAN CORPUSCULAR VOLUME 96.4 fl (80.0-96.0); PLATELET COUNT, AUTOMATED 320 10^3/uL (150-450); RED BLOOD COUNT 4.16 10^6/uL (4.00-5.40); WHITE BLOOD COUNT 10.6 10^3/uL (4.0-10.0)
[2019-10-09 14:08] LABS: ABG BASE EXCESS 0.7 (-2.0-2.0); ABG HCO3 24.6 MEQ/L (22.0-26.0); ABG O2 SATURATION 97.4 % (95.0-99.0); ABG PARTIAL PRESSURE CO2 37.1 mmHg (35.0-45.0); ABG PARTIAL PRESSURE O2 88.6 mmHg (75.0-100.0); ABG STANDARD HCO3 25.1 MEQ/L (22.0-26.0); ABG TOTAL CO2 25.8 MEQ/L (23.0-31.0)
[2019-10-09 14:20] LABS: INR 1.08; PROTHROMBIN TIME 13.7 SECONDS (11.8-14.0)
[2019-10-09 14:27] LABS: APPEARANCE, URINE CLEAR (CLEAR); BACTERIA, URINE AUTO NEGATIVE (NEGATIVE); BILIRUBIN, URINE AUTO NEGATIVE (NEGATIVE); BLOOD, URINE BLOOD NEGATIVE (NEGATIVE); COLOR, URINE YELLOW (YELLOW); GLUCOSE, URINE (UA) AUTO NEGATIVE (NEGATIVE); KETONE, URINE AUTO NEGATIVE (NEGATIVE); LEUKOCYTE ESTERASE, URINE AUTO NEGATIVE (NEGATIVE); NITRITE, URINE AUTO NEGATIVE (NEGATIVE); PROTEIN, URINE AUTO NEGATIVE (NEGATIVE); RBC, URINE AUTO 1 /HPF (0-3); SPECIFIC GRAVITY URINE AUTO 1.019 (1.002-1.035); SQUAMOUS EPITHELIAL CELL UR AU 0 /HPF (0-6); UROBILINOGEN, URINE AUTO 0.2 mg/dL (0.0-2.0); WBC, URINE AUTO 1 /HPF (0-3)
[2019-10-09 14:29] LABS: BLOOD UREA NITROGEN 19 MG/DL (7-18); CALCIUM LEVEL 9.3 MG/DL (8.8-10.2); CARBON DIOXIDE LEVEL 31 MEQ/L (21-32); CHLORIDE LEVEL 107 MEQ/L (98-107); CREATININE FOR GFR 0.89 MG/DL (0.55-1.30); GLOMERULAR FILTRATION RATE > 60.0 (>39); GLUCOSE, FASTING 113 MG/DL (70-100); POTASSIUM SERUM 4.5 MEQ/L (3.5-5.1); SODIUM LEVEL 140 MEQ/L (136-145)
--- NOTE | 2019-10-09 14:52 | REP ---
PA and lateral chest: Varices are the PA and lateral chest dated 08/06/[address] dated 10/05/2019. The previous small left apical pneumothorax has resolved. The lung hinkle are clear. Cardiac size is normal. The ya, mediastinum, skeletal structures are except for degenerative disc disease, unchanged. Impression: The previous small left apical pneumothorax has resolved. Electronically Signed by Berto Avina MD 10/09/2019 02:45 P
--- NOTE | 2019-10-12 00:52 | ECGEPIP ---
[facility] Test Date: 2019-10-09 Pat Name: OLI PHAM Department: Room: - Gender: Female Flume Tender: DANIEL : 1940 Requested By: Salbador Morrow Order Number: [id number] Reading MD: Hernandez Skinner Measurements Intervals [place] Rate: 85 P: 28 [place]: 173 QRS: 48 QRSD: 69 T: 20 QT: 338 QTc: 402 Interpretive Statements SINUS RHYTHM LOW QRS VOLTAGE IN PRECORDIAL LEADS Compared to prior tracings in the system, no significant changes Electronically Signed on 10-12-2019 0:52:26 EST by Hernandez Skinner
== END ==
LOC: M ADMPAT 13:16
PROVIDERS: ATTEND Thoracic Surgery (Cardiothoracic Vascular Surgery)
DX: C34.32 Malignant neoplasm of lower lobe, left bronchus or lung (principal)

== ENCOUNTER 2019-10-18 07:22 | Inpatient (IN) | payer MEDICARE, BC ==
[2019-10-18] VITALS (11 sets, daily range): BP systolic 90–129; BP diastolic 49–62
[~2019-10-18] VITALS: Ht 149.9 cm; Wt 136.8 kg
[~2019-10-18 07:22] MED LIST changes: +BUPIVACAINE HCL 0.5% 10 ML VIAL As Ordered ONE; +BUPIVACAINE LIPOSOME/PF 1.3% 20ML VIAL (13.3MG/ML)(EXPAREL)(C9290 PER1MG) As Ordered ONE; +CETACAINE SPRAY 5GM As Ordered ONE; +LIDOCAINE 1% MDV 20ML VIAL SQ PRN; +LR 1,000 ML IV ONE; +MUPIROCIN 2% OINT 22 GM TUBE TOP ONE; +ceFAZolin SOD 2 GM in IV 1 EA IV ONE
[2019-10-18] MEDS ORDERED: ceFAZolin SOD 2 GM in IV 1 EA IV ONE (08:15)
[2019-10-18] MEDS ORDERED: MUPIROCIN 2% OINT 22 GM TUBE TOP ONE (08:15)
[2019-10-18] MEDS ORDERED: fentaNYL 100 MCG/2 ML INJECTION (J3010) As Ordered ONE ×2 (08:43→13:04)
[2019-10-18] MEDS ORDERED: MIDAZOLAM INJ 2 MG/2 ML VIAL (J2250) As Ordered ONE (08:43)
[2019-10-18] MEDS ORDERED: LIDOCAINE 2% INJ 100 MG/5 ML SDV (FOR ANES.) As Ordered ONE (09:07)
[2019-10-18] MEDS ORDERED: propofoL 200 MG/20 ML VIAL As Ordered ONE (09:07)
[2019-10-18] MEDS ORDERED: fentaNYL 250 MCG/5 ML INJECTION (J3010) As Ordered ONE (09:07)
[2019-10-18] MEDS ORDERED: ROCURONIUM BROMIDE 50 MG/5 ML VIAL As Ordered ONE ×2 (09:07→10:13)
[2019-10-18] MEDS ORDERED: BUPIVACAINE HCL 0.25% 30 ML VIAL As Ordered ONE (09:15)
[2019-10-18] MEDS ORDERED: MIDAZOLAM INJ 2 MG/2 ML VIAL (J2250) IV ONE (09:30)
[2019-10-18] MEDS ORDERED: fentaNYL 100 MCG/2 ML INJECTION (J3010) IV ONE ×2 (09:30→09:45)
[2019-10-18] MEDS ORDERED: METOCLOPRAMIDE INJ 10MG/2ML VIAL (J2765) As Ordered ONE (10:35)
[2019-10-18] MEDS ORDERED: NALOXONE INJ 0.4 MG/1 ML VIAL (J2310) IV PRN (11:00)
[2019-10-18] MEDS ORDERED: EPIDURAL/PCA KEYS XX PRN (11:00)
[2019-10-18] MEDS ORDERED: diphenhydrAMINE INJ 50MG/ML VIAL (J1200) IV PRN (11:00)
[2019-10-18] MEDS ORDERED: WALLBOXKEY XX PRN (11:00)
[2019-10-18] MEDS ORDERED: METOCLOPRAMIDE INJ 10MG/2ML VIAL (J2765) IV PRN (11:00)
[2019-10-18] MEDS ORDERED: ONDANSETRON 4MG/2ML VIAL (J2405) IV PRN ×3 (11:00→13:15)
[2019-10-18] MEDS ORDERED: ONDANSETRON 4MG/2ML VIAL (J2405) As Ordered ONE (11:18)
[2019-10-18] MEDS ORDERED: GLYCOPYRROLATE INJ 0.2 MG/ML 2 ML VIAL As Ordered ONE (11:19)
[2019-10-18] MEDS ORDERED: NEOSTIGMINE 10 MG/10 ML VIAL (J2710) As Ordered ONE (11:19)
[2019-10-18] MEDS ORDERED: LEVALBUTEROL 1.25 MG/0.5 ML CONCENTRATE NEB NEB PRN (12:30)
[2019-10-18] MEDS ORDERED: LORATADINE 10 MG TAB PO PRN (12:30)
[2019-10-18] MEDS ORDERED: PERCOCET 5MG/325MG TAB PO PRN ×2 (12:30)
[2019-10-18] MEDS ORDERED: BISACODYL 10 MG SUPP PR PRN (12:30)
[2019-10-18] MEDS ORDERED: NORCO, ANEXSIA 5/325MG TABLET (HYDROcodone/ACETAMINOPHEN) PO PRN (12:30)
[2019-10-18] MEDS: FENTANYL/BUPIVACAINE/NACL BAG 250 ML EPIDURAL SCH (12:57)
[2019-10-18] MEDS: KCL 20MEQ IN D5/NS 1000ML 1,000 ML IV SCH (13:00)
[2019-10-18] MEDS ORDERED: KETOROLAC 30 MG/ML VIAL (J1885) As Ordered ONE ×2 (13:03→13:56)
[2019-10-18] MEDS: fentaNYL 100 MCG/2 ML INJECTION (J3010) IV PRN ×4 (13:05→13:21)
[2019-10-18] MEDS ORDERED: KETOROLAC 30 MG/ML VIAL (J1885) IV PRN (13:15)
[2019-10-18] MEDS ORDERED: LR 1,000 ML IV SCH (13:15)
[2019-10-18 13:16] LABS: BASO # 0.1 10^3/uL (0.0-0.2); BASO % 0.4 % (0.0-1.0); EOS # 0.1 10^3/uL (0.0-0.5); EOS % 0.5 % (0.0-3.0); HEMATOCRIT 41.9 % (36.0-47.0); LYMPH # 0.9 10^3/uL (1.5-5.0); LYMPH % 4.3 % (24.0-44.0); MEAN CORPUSCULAR HEMOGLOBIN 30.4 pg (27.0-33.0); MEAN CORPUSCULAR VOLUME 97.9 fl (80.0-96.0); MONO # 1.3 10^3/uL (0.0-0.8); MONO % 6.1 % (0.0-5.0); NEUTROPHILS # 18.3 10^3/uL (1.5-8.5); PLATELET COUNT, AUTOMATED 303 10^3/uL (150-450); RED BLOOD COUNT 4.28 10^6/uL (4.00-5.40); WHITE BLOOD COUNT 20.8 10^3/uL (4.0-10.0)
[2019-10-18 13:30] LABS: ABG BASE EXCESS -2.3 (-2.0-2.0); ABG HCO3 24.1 MEQ/L (22.0-26.0); ABG O2 SATURATION 98.1 % (95.0-99.0); ABG PARTIAL PRESSURE CO2 47.7 mmHg (35.0-45.0); ABG PARTIAL PRESSURE O2 109.1 mmHg (75.0-100.0); ABG STANDARD HCO3 22.6 MEQ/L (22.0-26.0); ABG TOTAL CO2 25.5 MEQ/L (23.0-31.0); ABG pH (ARTERIAL) 7.321 UNITS (7.350-7.450)
--- NOTE | 2019-10-18 13:35 | REP ---
Portable chest x-ray: Single view. History: Status post left lower lobectomy. Comparison study: October 09, 2019. Findings: Two left chest tubes are noted in place post thoracotomy. There is a suture line in the left base. The left lung is otherwise clear. Right lung is clear. There is no evidence of pneumothorax or hydrothorax. A thoracic epidural catheter is noted in place. There is an old healed surgical neck fracture of the left proximal humerus. Otherwise no active disease. Electronically Signed by Robbie Oliver MD 10/18/2019 01:27 P
[2019-10-18 13:49] LABS: CALCIUM LEVEL 9.2 MG/DL (8.8-10.2); CREATININE FOR GFR 0.98 MG/DL (0.55-1.30); GLOMERULAR FILTRATION RATE 58.3 (>39); POTASSIUM SERUM 4.4 MEQ/L (3.5-5.1)
[2019-10-18] MEDS: LEVALBUTEROL 1.25 MG/0.5 ML CONCENTRATE NEB NEB SCH ×2 (14:00→19:54)
[2019-10-18] MEDS ORDERED: KETOROLAC 30 MG/ML VIAL (J1885) IV ONE (14:00)
--- NOTE | 2019-10-18 14:25 | RO ---
DATE OF PROCEDURE: 10/18/2019 PREOPERATIVE DIAGNOSIS: Well differentiated adenocarcinoma, clinical stage IB. POSTOPERATIVE DIAGNOSIS: Well differentiated adenocarcinoma, clinical stage IB. PROCEDURE: Left lower lobectomy, mediastinal lymphadenectomy, bronchoscopy, rib block and left upper lobe wedge resection of small nodule. SURGEON: Salbador Peterson MD TRAIN ENGINEER: ANESTHESIA: FINDINGS: The tumor was located in the apical basilar segment of the left lower lobe. Fissure was complete. After removing the left lower lobe I felt a very small, maybe 2-3 mm nodule in the right upper lobe, and that was taken as a wedge for pathological examination. She had an increased AP window nodes, but all looked to be soft and anthracotic. Bronchoscopy revealed a normal branching tracheobronchial tree and there were no endobronchial lesions. There were only scant secretions. PROCEDURE: Under satisfactory single lumen tube endotracheal anesthesia, bronchoscope was passed into the tracheobronchial tree. East segment and subsegment were thoroughly inspected and there were no endobronchial lesions. There were only scan secretions. Double lumen tube was then placed and the patient was turned into the right lateral decubitus position with left side up and sterilely prepped and draped in the usual fashion. A posterolateral thoracotomy incision was made and carried down through the subcutaneous tissue. Latissimus dorsi was divided and the serratus anterior was spared. The chest was entered through the fifth intercostal space. A retractor was placed and the fissure was gratifyingly complete. The pulmonary artery at the bottom of the fissure was then dissected. There was a large node overlying the pulmonary artery and that was dissected free and sent with the specimen. There were two lower branch arteries that could be ascertained and these were completely dissected and surrounded with vessel loops. They were divided by use of a vascular SONIA ski tip stapler. Attention was then turned to the pulmonary vein where the anterior mediastinal pleura was incised and the inferior pulmonary ligament was divided. The posterior mediastinal pleura was also incised and was found to have adhesions. These were taken down and the inferior pulmonary vein could eventually be resected and surrounded with a vessel loop. This too was divided by a vascular GI stapler. This then left the bronchus. The remaining remnants of the fissure was divided by use of a [place] SONIA stapler. This then left the bronchus. Resected and divided. The bronchus was first clamped with the stapler and the left upper lobe was inflated. It was then stapled with two rows of lisandra and then over sewed with interrupted #3-0 Vicryl sutures. The upper lobe was then tried to be inflated again and it would not come up. I therefore broke scrub and placed a bronchoscope down the bronchial tube of the double lumen tube and it was found that the endobronchial tube was up against the amputated stump. It was pulled back and the left upper lobe bronchus could clearly be see and the left upper lobe inflated. We then tested the bronchus to 30 cm of water and it was intact. Attention was then turned to the AP window, which was incised. There were numerous nodes that looked anthracotic overlying the pulmonary artery. These were all swept free until there were no nodes left. Hemostasis was achieved by use of the Harmonic scalpel. The space was eventually filled with TISSEEL glue. Upon closing, I did feel a small nodule in the right upper lobe, which had been noted also on the CT scan. This was at the surface and I took a wedge resection of it to be sent for pathology. Two chest tubes were placed and an intercostal rib block consisting of Marcaine and Exparel was instilled. After achieving adequate hemostasis, and covering the anastomotic stumps with TISSEEL, the ribs were reapproximated by use of #1 figure-of-8 Prolene sutures as pericostals, the latissimus dorsi was closed with running #0 Vicryl suture, and the subcutaneous tissue by use of #3-0 Vicryl suture and the skin by use of #3-0 Monocryl subcuticular sutures. The patient tolerated the procedure well and left the operating room in satisfactory condition to the recovery room.
[2019-10-18] MEDS ORDERED: ePHEDrine SULFATE 25 MG/5 ML(5MG/ML) SYRINGE As Ordered ONE (14:33)
[2019-10-18] MEDS ORDERED: PHENYLephrine HCL 500 MCG/5 ML (100MCG/ML) SYRINGE (J2370) As Ordered ONE (14:35)
[2019-10-18] MEDS: GABAPENTIN 300 MG CAP PO SCH ×2 (16:10→21:40)
[2019-10-18] MEDS: ceFAZolin SOD 1 GM in D5W MINI-BAG PLUS 50 ML IV SCH (17:22)
[2019-10-18] MEDS: KETOROLAC 30 MG/ML VIAL (J1885) IV SCH (20:10)
[2019-10-18] MEDS: amLODIPine 5 MG TAB PO SCH (21:00)
[2019-10-18] MEDS: LOSARTAN 50 MG TAB PO SCH (21:00)
[2019-10-18] MEDS: HEPARIN SOD (PORCINE) 5000 UNITS/ML VIAL (J1644 PER 1000UNITS) SC SCH (21:40)
[2019-10-18] MEDS: SIMVASTATIN 20 MG TAB PO SCH (21:40)
[2019-10-18] MEDS: DOCUSATE SODIUM 100 MG CAP PO SCH (21:40)
[2019-10-18] MEDS: BRIMONIDINE 0.1% OPHTH SOLN 5 ML OU SCH (21:55)
[2019-10-19] VITALS (16 sets, daily range): BP systolic 89–154; BP diastolic 50–91
[2019-10-19] MEDS: LEVALBUTEROL 1.25 MG/0.5 ML CONCENTRATE NEB NEB SCH ×4 (01:19→19:29)
[2019-10-19] MEDS: KETOROLAC 30 MG/ML VIAL (J1885) IV SCH ×4 (02:31→21:19)
[2019-10-19] MEDS: KCL 20MEQ IN D5/NS 1000ML 1,000 ML IV SCH (02:32)
[2019-10-19] MEDS: ceFAZolin SOD 1 GM in D5W MINI-BAG PLUS 50 ML IV SCH ×3 (02:32→17:07)
[2019-10-19 05:20] LABS: BASO # 0.1 10^3/uL (0.0-0.2); BASO % 0.3 % (0.0-1.0); EOS # 0.1 10^3/uL (0.0-0.5); EOS % 0.9 % (0.0-3.0); HEMATOCRIT 35.1 % (36.0-47.0); LYMPH # 1.9 10^3/uL (1.5-5.0); LYMPH % 12.7 % (24.0-44.0); MEAN CORPUSCULAR HEMOGLOBIN 30.6 pg (27.0-33.0); MEAN CORPUSCULAR HGB CONC 31.1 g/dl (32.0-36.5); MEAN CORPUSCULAR VOLUME 98.6 fl (80.0-96.0); MONO # 1.3 10^3/uL (0.0-0.8); MONO % 8.6 % (0.0-5.0); NEUTROPHILS # 11.5 10^3/uL (1.5-8.5); NEUTROPHILS % 77.1 % (36.0-66.0); PLATELET COUNT, AUTOMATED 267 10^3/uL (150-450); RED BLOOD COUNT 3.56 10^6/uL (4.00-5.40); WHITE BLOOD COUNT 14.9 10^3/uL (4.0-10.0)
[2019-10-19 05:22] LABS: HEMOGLOBIN 10.9 g/dl (12.0-15.5)
[2019-10-19 05:34] LABS: BLOOD UREA NITROGEN 16 MG/DL (7-18); CALCIUM LEVEL 7.8 MG/DL (8.8-10.2); CARBON DIOXIDE LEVEL 26 MEQ/L (21-32); CHLORIDE LEVEL 113 MEQ/L (98-107); CREATININE FOR GFR 0.95 MG/DL (0.55-1.30); GLOMERULAR FILTRATION RATE > 60.0 (>39); GLUCOSE, FASTING 121 MG/DL (70-100); POTASSIUM SERUM 4.6 MEQ/L (3.5-5.1); SODIUM LEVEL 143 MEQ/L (136-145)
[2019-10-19 06:08] LABS: ABG BASE EXCESS -3.9 (-2.0-2.0); ABG HCO3 21.8 MEQ/L (22.0-26.0); ABG O2 SATURATION 98.4 % (95.0-99.0); ABG PARTIAL PRESSURE CO2 42.3 mmHg (35.0-45.0); ABG PARTIAL PRESSURE O2 109.1 mmHg (75.0-100.0); ABG STANDARD HCO3 21.2 MEQ/L (22.0-26.0); ABG TOTAL CO2 23.1 MEQ/L (23.0-31.0)
--- NOTE | 2019-10-19 08:55 | REP ---
PA and lateral chest: Comparison is the portable chest of 10/18/2019. The the patient is status post left lower lobectomy. There are too left thoracotomy tubes, unchanged. The There is no pneumothorax. There is no pleural fluid collection. There is subcutaneous emphysema along the left lateral chest wall. There is minor atelectasis inferiorly in the left lung. The right lung is clear. Cardiac size is normal. The ya and mediastinum are unremarkable. There is an epidural catheter, unchanged. There is old post-traumatic deformity of the left humeral neck. Impression: Postsurgical changes as described. No pneumothorax or pleural fluid collection. Electronically Signed by Berto Avina MD 10/19/2019 08:47 A
[2019-10-19] MEDS: VITAMIN D 1,000 INTERNATIONAL UNITS TABLET PO SCH (09:00)
[2019-10-19] MEDS: DOCUSATE SODIUM 100 MG CAP PO SCH ×2 (09:26→21:17)
[2019-10-19] MEDS: PANTOPRAZOLE 40MG TAB (PROTONIX) PO SCH (09:26)
[2019-10-19] MEDS: MOM 30ML SUSPENSION UDC PO SCH (09:26)
[2019-10-19] MEDS: GABAPENTIN 300 MG CAP PO SCH ×3 (09:26→21:18)
[2019-10-19] MEDS: HEPARIN SOD (PORCINE) 5000 UNITS/ML VIAL (J1644 PER 1000UNITS) SC SCH ×2 (09:27→21:19)
[2019-10-19] MEDS: OCUVITE 1 TAB PO SCH (09:27)
[2019-10-19] MEDS: BRIMONIDINE 0.1% OPHTH SOLN 5 ML OU SCH ×2 (09:29→21:20)
[2019-10-19] MEDS ORDERED: FUROSEMIDE 20 MG/2 ML VIAL (J1940) IV ONE (10:00)
--- NOTE | 2019-10-19 10:30 | IPN ---
DATE: 10/19/2019 This is now the first postoperative day for Mrs. Treviño. She had a stable night of surgery. Her pain is being well controlled with the epidural. Her shoulder pain now greater reduced. Her vital signs show a maximum temperature (t-max) of 99.6 with a heart rate that ranges between 78 and 81 in a sinus rhythm. Respiratory rate of 16 to 20 without the use of accessory muscles and she is 98 to 97% saturated on 1 liter nasal cannula. Her blood pressure is ranging between 117/58 to 90/54. Her intake and output over the past 24 hours has been recorded as 1870 in and 764 out for a positivity of 1100 mL. She has put 274 mL out the chest tube. She has had 440 mL out in urine. PHYSICAL EXAMINATION: She has coarse rhonchi throughout the respiratory cycle in both inspiration and expiration of both sides. Percussion is full to the diaphragm. Cardiac exam is without murmurs, clicks, gallops or rubs. I cannot feel her point of maximal impulse (PMI). S1 and S2 are normal. Abdomen is soft and nontender. Bowel sounds are positive. There is no hepatomegaly. No costovertebral angle (CVA) tenderness. Extremities show no pretibial edema. No calf tenderness. No differential swelling of the upper extremities. Skin is warm, dry and perfused without cyanosis or mottling including that of the nail beds and the knees. Neck is supple. There is no jugular venous distention. No subcutaneous emphysema. Trachea is midline. Mouth shows her mucous membranes to be pink and moist. Lips and commissures without lesions. No thrush. Eyes show her pupils to be equal, reactive. Extraocular muscles intact. Sclera anicteric. Neuro shows II through XII intact. Gross motor and gross sensation intact. Gait is not tested. Psychiatric shows her to be awake, alert and oriented times three with appropriate mood, affect and conversational. Her white count today is 14.9 with hemoglobin and hematocrit of 10.9, and 35.1 secondary to hemodilution. Platelet count is 267. Her differentials show 77% neutrophils, 12% lymphocytes, 8% monocytes. There are no immature forms. No toxic granulations. Her electrolytes are normal with a BUN and creatinine of 16 and 0.95, glucose of 121, and calcium of 7.8. Blood gases today show pH of 7.33, pCO2 42, and a p02 of 109. Base excess is -3.9. Her chest x-ray today shows her lung fully expanded to the chest wall. There is volume loss from the lobectomy. Costophrenic angles are sharp. Lateral view shows no infiltrates and chest tubes are in good place. IMPRESSION: 1. Well differentiated adenocarcinoma. Final pathology pending. 2. One day status post left lower lobectomy. 3. Hypertension. 4. Hyperlipidemia. PLAN AND DISCUSSION: I will transfer her to the progressive care unit (PCU) today. We will keep her on suction as she still has a small air leak. I will gently diuresis her with 20 mg of Lasix.
[2019-10-19] MEDS: FENTANYL/BUPIVACAINE/NACL BAG 250 ML EPIDURAL SCH (12:03)
[2019-10-19] MEDS: LOSARTAN 50 MG TAB PO SCH (21:16)
[2019-10-19] MEDS: amLODIPine 5 MG TAB PO SCH (21:17)
[2019-10-19] MEDS: SIMVASTATIN 20 MG TAB PO SCH (21:18)
[2019-10-20] VITALS (7 sets, daily range): BP systolic 104–145; BP diastolic 52–65
[2019-10-20] MEDS: LEVALBUTEROL 1.25 MG/0.5 ML CONCENTRATE NEB NEB SCH ×4 (01:44→19:25)
[2019-10-20] MEDS: ceFAZolin SOD 1 GM in D5W MINI-BAG PLUS 50 ML IV SCH ×2 (01:54→09:59)
[2019-10-20] MEDS: KETOROLAC 30 MG/ML VIAL (J1885) IV SCH (01:54)
[2019-10-20 06:03] LABS: BASO # 0.1 10^3/uL (0.0-0.2); BASO % 0.8 % (0.0-1.0); EOS # 0.7 10^3/uL (0.0-0.5); HEMATOCRIT 33.2 % (36.0-47.0); HEMOGLOBIN 10.6 g/dl (12.0-15.5); LYMPH # 2.3 10^3/uL (1.5-5.0); LYMPH % 16.4 % (24.0-44.0); MEAN CORPUSCULAR HEMOGLOBIN 31.2 pg (27.0-33.0); MEAN CORPUSCULAR HGB CONC 31.9 g/dl (32.0-36.5); MEAN CORPUSCULAR VOLUME 97.6 fl (80.0-96.0); MONO # 1.6 10^3/uL (0.0-0.8); MONO % 11.4 % (0.0-5.0); NEUTROPHILS # 9.3 10^3/uL (1.5-8.5); NEUTROPHILS % 65.9 % (36.0-66.0); PLATELET COUNT, AUTOMATED 243 10^3/uL (150-450); WHITE BLOOD COUNT 14.1 10^3/uL (4.0-10.0)
[2019-10-20 06:28] LABS: CREATININE FOR GFR 1.28 MG/DL (0.55-1.30); GLOMERULAR FILTRATION RATE 42.8 (>39); POTASSIUM SERUM 4.1 MEQ/L (3.5-5.1)
--- NOTE | 2019-10-20 08:28 | REP ---
PA and lateral chest: Comparison is 10/19/2019. The two left thoracotomy tubes are unchanged. The subcutaneous emphysema along the left lateral chest wall is unchanged. There is a tiny pneumothorax in the left costophrenic angle. There is no pleural fluid collection. There is an epidural catheter, unchanged. The lung hinkle are clear. Cardiac size is normal. The Impression: Tiny pneumothorax in the left costophrenic angle. Otherwise, no interval change. Electronically Signed by Berto Avina MD 10/20/2019 08:19 A
[2019-10-20] MEDS ORDERED: FUROSEMIDE 20 MG/2 ML VIAL (J1940) IV ONE (09:00)
--- NOTE | 2019-10-20 09:03 | MHIPN ---
DATE: 10/20/2019 This is now the second postoperative day for Mrs. Treviño. She is doing very well and her pain is being well controlled. She is sitting up comfortably in a chair. Her vital signs show a maximum temperature (t-max) of 101.4 yesterday at 5:00 o'clock and now at 99.8. Her heart rate ranges between 87 and 94 in a sinus rhythm, respiratory rate of 18 to 20 without the use of accessory muscles, who is 95% saturated on 1 liter nasal cannula. Her blood pressure is ranging between 104/52 to 128/57. Her intake and output over the past 24 hours has been recorded as 1710 in and 1845 out for a negativity of 135 mL. She has put out 405 mL from the chest tube and there is no air leak. She put out 1440 mL in urine output and has taken in 1216 in oral intake. PHYSICAL EXAMINATION: LUNGS: SHe has equal breath sounds on either side with some faint rales that clear with coughing. Percussion note is full to the diaphragm. CARDIAC EXAM: Without murmurs, clicks, gallops or rubs. I cannot feel her point of maximum impulse (PMI). S1, S2 are normal. ABDOMEN: Soft, nontender. Bowel sounds positive. There is no hepatomegaly. No costovertebral angle tenderness. She has had flatus but not a bowel movement. EXTREMITIES: Trace pretibial edema. No calf tenderness. No differential swelling of the upper extremities. SKIN: Warm, dry and perfused without cyanosis or mottling, including that of the nail beds and knees. NECK: Supple. There is no jugular venous distention. No subcutaneous emphysema. Trachea is midline. MOUTH: Shows her mucous membranes to be pink and moist. Lips and commissures without lesions. There is no thrush. EYES: Show her pupils to be equal and reactive. Extraocular motion intact. Sclerae anicteric. NEUROLOGIC: Shows II through XII intact with gross motor and gross sensation intact. Gait is not tested. PSYCHIATRIC: Shows her to be awake and alert, oriented times three with appropriate mood and affect and conversational. LABORATORY DATA: Her white count today is 14.1 with a hemoglobin and hematocrit of 2.6 and 33.2 with a platelet count of 243 and stable. Differential shows 65% neutrophils, 16% lymphocytes, 11% monocytes. There are no immature forms and no toxic granulations. Chemistries today show normal electrolytes with a BUN and creatinine of 24 and 1.28. I will discontinue the Toradol. Glucose is 105 with a calcium of 9.0. Pathology is still pending. Her chest x-ray today shows the lung fully expanded to the chest wall. Lateral film does not show any posterior infiltrates and the chest tubes are in good place. IMPRESSION: 1. Adenocarcinoma left lower lobe, pathology pending. 2. Postoperative day number 2 status post left lower lobectomy. 3. Hypertension. 4. Hyperlipidemia. PLAN/DISCUSSION: I will continue her chest tube on suction. I will again gently diurese her. So far, I am gratified with her postoperative course.
[2019-10-20] MEDS: DOCUSATE SODIUM 100 MG CAP PO SCH ×2 (09:56→20:12)
[2019-10-20] MEDS: GABAPENTIN 300 MG CAP PO SCH ×3 (09:57→20:12)
[2019-10-20] MEDS: OCUVITE 1 TAB PO SCH (09:57)
[2019-10-20] MEDS: PANTOPRAZOLE 40MG TAB (PROTONIX) PO SCH (09:57)
[2019-10-20] MEDS: MOM 30ML SUSPENSION UDC PO SCH (09:57)
[2019-10-20] MEDS: VITAMIN D 1,000 INTERNATIONAL UNITS TABLET PO SCH (09:57)
[2019-10-20] MEDS: HEPARIN SOD (PORCINE) 5000 UNITS/ML VIAL (J1644 PER 1000UNITS) SC SCH ×2 (09:58→20:11)
[2019-10-20] MEDS: BRIMONIDINE 0.1% OPHTH SOLN 5 ML OU SCH ×2 (09:59→20:13)
[2019-10-20] MEDS ORDERED: SLF 3 ML SYR IV PRN (11:30)
[2019-10-20] MEDS: SLF 3 ML SYR IV SCH ×2 (14:21→20:13)
[2019-10-20] MEDS: ACETAMINOPHEN TAB 650MG DOSE (2X325MG) PO PRN (16:12)
[2019-10-20] MEDS: FENTANYL/BUPIVACAINE/NACL BAG 250 ML EPIDURAL SCH (16:53)
[2019-10-20] MEDS: LOSARTAN 50 MG TAB PO SCH (20:11)
[2019-10-20] MEDS: SIMVASTATIN 20 MG TAB PO SCH (20:12)
[2019-10-20] MEDS: amLODIPine 5 MG TAB PO SCH (20:12)
[2019-10-21] MEDS: LEVALBUTEROL 1.25 MG/0.5 ML CONCENTRATE NEB NEB SCH ×4 (02:00→20:00)
[2019-10-21 04:00] VITALS: BP 125/58
[2019-10-21] MEDS: SLF 3 ML SYR IV SCH ×3 (04:47→21:40)
[2019-10-21 05:55] LABS: BASO # 0.1 10^3/uL (0.0-0.2); BASO % 0.7 % (0.0-1.0); EOS # 0.9 10^3/uL (0.0-0.5); EOS % 6.1 % (0.0-3.0); HEMATOCRIT 34.6 % (36.0-47.0); HEMOGLOBIN 10.7 g/dl (12.0-15.5); LYMPH # 2.5 10^3/uL (1.5-5.0); LYMPH % 17.6 % (24.0-44.0); MEAN CORPUSCULAR HEMOGLOBIN 30.3 pg (27.0-33.0); MEAN CORPUSCULAR HGB CONC 30.9 g/dl (32.0-36.5); MONO # 1.5 10^3/uL (0.0-0.8); NEUTROPHILS # 8.9 10^3/uL (1.5-8.5); PLATELET COUNT, AUTOMATED 255 10^3/uL (150-450); RED BLOOD COUNT 3.53 10^6/uL (4.00-5.40)
[2019-10-21 06:08] LABS: CALCIUM LEVEL 8.4 MG/DL (8.8-10.2); CREATININE FOR GFR 1.12 MG/DL (0.55-1.30); POTASSIUM SERUM 4.4 MEQ/L (3.5-5.1)
[2019-10-21 08:00] VITALS: BP 145/72
[2019-10-21] MEDS: HEPARIN SOD (PORCINE) 5000 UNITS/ML VIAL (J1644 PER 1000UNITS) SC SCH ×2 (08:27→21:39)
[2019-10-21] MEDS: MOM 30ML SUSPENSION UDC PO SCH (08:27)
[2019-10-21] MEDS: OCUVITE 1 TAB PO SCH (08:28)
[2019-10-21] MEDS: DOCUSATE SODIUM 100 MG CAP PO SCH ×2 (08:28→21:39)
[2019-10-21] MEDS: GABAPENTIN 300 MG CAP PO SCH ×3 (08:28→21:38)
[2019-10-21] MEDS: BRIMONIDINE 0.1% OPHTH SOLN 5 ML OU SCH ×2 (08:28→21:39)
[2019-10-21] MEDS: VITAMIN D 1,000 INTERNATIONAL UNITS TABLET PO SCH (08:28)
[2019-10-21] MEDS: PANTOPRAZOLE 40MG TAB (PROTONIX) PO SCH (08:28)
--- NOTE | 2019-10-21 08:35 | REP ---
Clinical: Status post left lower lobectomy. Technique: PA and lateral. Comparison: 10/20/2019. Findings: Two left-sided chest tubes in stable position. Postsurgical changes are again noted including left lower lobe opacity, moderate amount of subcutaneous emphysema and nondisplaced left rib fractures. The right hemithorax appears clear. The mediastinum and cardiac silhouette are stable. Impression: Postsurgical changes involving left hemithorax similar to prior examination. Electronically Signed by Gokul Amos MD 10/21/2019 08:27 A
[2019-10-21 12:00] VITALS: BP 135/76
[2019-10-21] MEDS ORDERED: FUROSEMIDE 40 MG/4 ML VIAL (J1940) IV ONE (12:45)
[2019-10-21 16:00] VITALS: BP 145/72
--- NOTE | 2019-10-21 18:12 | IPN ---
DATE: 10/21/2019 This is now the third postoperative day for Mrs. Treviño status post left lower lobectomy. She is doing well today and her pain is being well controlled. She still has a little bit of shoulder pain. I have informed her that the final pathology has shown all nodes negative and therefore she has stage I disease. The tumor measurements were 3.5 x 2.5 x 1.5, which makes her a [id number] or stage I AC. Her vital signs show a maximum temperature (t-max) of 99.3 with a heart rate that ranges between 20 and 18 without the use of accessory muscles, who is 92% saturated on room air and whose blood pressure is ranging between 120/53 to 136/65. Her heart rate ranges between 93 and 101 in a sinus rhythm. Her intake and output the past 24 hours has been recorded as 1490 in and 1600 out for a negativity of 110 mL. She has put 300 mL out of the chest tube and her weight today is 69.2 kg compared to 67.2 kg yesterday. PHYSICAL EXAMINATION LUNGS: She has bilateral rhonchi, rales and wheezing during inspiration and expiration. Percussion note is full to the diaphragm. CARDIAC EXAM: Without murmurs, clicks, gallops or rubs. I cannot feel her point of maximum impulse (PMI). S1, S2 are normal. ABDOMEN: Soft, nontender. Bowel sounds positive, although she has not had flatus. She is distended with hypoactive bowel sounds. EXTREMITIES: Show no pretibial edema. No calf tenderness. No differential swelling of the upper extremities. SKIN: Warm, dry and perfused without cyanosis or mottling, including that of the nail beds and knees. NECK: Supple. There is no jugular venous distention. No subcutaneous emphysema. Trachea is midline. MOUTH: Shows her mucous membranes to be pink and moist. Lips and commissures without lesions. There is no thrush. EYES: Show her pupils to be equal and reactive. Extraocular motion intact. Sclerae anicteric. NEUROLOGIC: Shows II through XII intact with gross motor and gross sensation intact. Gait is not tested. PSYCHIATRIC: Shows her to be awake and alert, oriented times three with appropriate mood and affect and conversational. LABORATORY DATA Her white count today is 14.0, essentially unchanged from yesterday with a hemoglobin and hematocrit of 10.7 and 34.6, unchanged from yesterday also. Platelet count is 255 and stable. Differential shows 64% neutrophils, 17% lymphocytes, 11% monocytes. There are no immature forms and no toxic granulations. Her electrolytes are normal today with a BUN and creatinine of 26 and 1.12, glucose of 124 with a calcium of 8.4. Chest x-ray today shows her lung fully expanded to the chest wall but there is more subcutaneous emphysema on the right side. I did not see an air leak today, although her nurse did. I see no infiltrates. Chest tubes are in good place. IMPRESSION: 1. Adenocarcinoma of the left lower lobe, pathology pending. 2. Postoperative day number 3 status post left lower lobectomy. 3. Hypertension. 4. Hyperlipidemia. PLAN/DISCUSSION: I will diurese her today again. I was going to take her off suction, but I will place her back on suction because of the increase in subcutaneous emphysema on the chest x-ray.
[2019-10-21 20:00] VITALS: BP 121/74
[2019-10-21] MEDS: LOSARTAN 50 MG TAB PO SCH (21:39)
[2019-10-21] MEDS: SIMVASTATIN 20 MG TAB PO SCH (21:39)
[2019-10-21] MEDS: amLODIPine 5 MG TAB PO SCH (21:39)
[2019-10-21] MEDS: ACETAMINOPHEN TAB 650MG DOSE (2X325MG) PO PRN ×2 (21:40→21:51)
[2019-10-21] MEDS: FENTANYL/BUPIVACAINE/NACL BAG 250 ML EPIDURAL SCH (21:46)
[2019-10-21 23:59] VITALS: BP 124/60
[2019-10-22] MEDS: LEVALBUTEROL 1.25 MG/0.5 ML CONCENTRATE NEB NEB SCH ×4 (01:48→20:59)
[2019-10-22 04:00] VITALS: BP 135/84
[2019-10-22] MEDS: SLF 3 ML SYR IV SCH ×3 (05:23→22:00)
[2019-10-22 05:36] LABS: BASO # 0.1 10^3/uL (0.0-0.2); BASO % 0.5 % (0.0-1.0); EOS # 0.7 10^3/uL (0.0-0.5); EOS % 5.2 % (0.0-3.0); HEMOGLOBIN 11.3 g/dl (12.0-15.5); LYMPH # 1.4 10^3/uL (1.5-5.0); MEAN CORPUSCULAR HEMOGLOBIN 30.6 pg (27.0-33.0); MEAN CORPUSCULAR HGB CONC 32.3 g/dl (32.0-36.5); MEAN CORPUSCULAR VOLUME 94.9 fl (80.0-96.0); MONO # 1.8 10^3/uL (0.0-0.8); MONO % 14.1 % (0.0-5.0); NEUTROPHILS # 8.9 10^3/uL (1.5-8.5); NEUTROPHILS % 68.7 % (36.0-66.0); PLATELET COUNT, AUTOMATED 300 10^3/uL (150-450); RED BLOOD COUNT 3.69 10^6/uL (4.00-5.40)
[2019-10-22 06:05] LABS: CALCIUM LEVEL 8.9 MG/DL (8.8-10.2); GLOMERULAR FILTRATION RATE 56.9 (>39)
[2019-10-22 07:15] VITALS: BP 135/72
--- NOTE | 2019-10-22 08:15 | REP ---
Clinical: Follow up left lower lobectomy. Technique: PA and lateral. Comparison: 10/21/2019. Findings: Two left-sided chest tubes are in stable position. Postsurgical changes involving left hemithorax including subcutaneous emphysema and mid to lower lobe opacities may be slightly improved from prior examination. No new acute process identified. Impression: Mildly improved findings involving the left hemithorax. Electronically Signed by Gokul Amos MD 10/22/2019 08:07 A
[2019-10-22] MEDS: HEPARIN SOD (PORCINE) 5000 UNITS/ML VIAL (J1644 PER 1000UNITS) SC SCH ×2 (09:27→21:06)
[2019-10-22] MEDS: BRIMONIDINE 0.1% OPHTH SOLN 5 ML OU SCH ×2 (09:27→21:06)
[2019-10-22] MEDS: MOM 30ML SUSPENSION UDC PO SCH (09:27)
[2019-10-22] MEDS: OCUVITE 1 TAB PO SCH (09:28)
[2019-10-22] MEDS: VITAMIN D 1,000 INTERNATIONAL UNITS TABLET PO SCH (09:28)
[2019-10-22] MEDS: GABAPENTIN 300 MG CAP PO SCH ×3 (09:28→21:06)
[2019-10-22] MEDS: DOCUSATE SODIUM 100 MG CAP PO SCH ×2 (09:28→21:06)
[2019-10-22] MEDS: PANTOPRAZOLE 40MG TAB (PROTONIX) PO SCH (09:28)
[2019-10-22] MEDS ORDERED: FUROSEMIDE 40 MG/4 ML VIAL (J1940) IV ONE (11:15)
[2019-10-22 12:00] VITALS: BP 133/66
--- NOTE | 2019-10-22 12:19 | IPN ---
DATE: 10/22/2019 This is now the fourth postoperative day for Mrs. Gutierrez. Her pain is being very well controlled, and she feels very good. There is no air leak. Her vital signs show a maximum temperature (T max) of 99.3 with a heart rate that ranges between 87 and 97 and is sinus rhythm, respiratory rate of 18 to 20 without the use of accessory muscles who is 93% saturated on room air and whose blood pressure is ranging between 121/74 to 145/72. Her intake and output over the past 24 hours has been recorded as 1620 in and 2715 out for a negativity of 1095 mL. She has put out 345 mL out the chest tube. Her weight today is 63.8 kg compared to 69.2 kg yesterday. PHYSICAL EXAMINATION: Her lungs show some bibasilar crackles on either side. Percussion note is full to the diaphragm. Cardiac exam is without murmurs, clicks, gallops or rubs. I cannot feel her point of maximum impulse (PMI). S1, S2 are normal. Abdomen: Bowel sounds are positive. She is a bit distended and slightly firm and has not yet had a bowel movement. Extremities show no pretibial edema. No calf tenderness. No differential swelling of the upper extremities. Skin is warm, dry and perfused without cyanosis or mottling, including that of the nail beds and the knees. Neck is supple. There is no jugular venous distention, no subcutaneous emphysema. Trachea is midline. Mouth shows her mucous membranes to be pink and moist. Lips and commissures without lesions. There is no thrush. Eyes show her pupils to be equal and reactive. Extraocular motions intact. Sclerae nonicteric. Neurologic shows II-XII intact along with gross motor and gross sensation intact. Gait is not tested. Psychiatric shows her to be awake and alert, oriented times three with appropriate mood and affect and conversational. Her white count is down to 13,000 with a hemoglobin and hematocrit of 11.3 and 35.0, essentially unchanged from yesterday with a platelet count of 300. Differential shows 68% neutrophils, 11% lymphocytes, 14% monocytes. There are no immature forms. No toxic granulations. Her electrolytes are essentially normal with a marginally low sodium of 135. BUN and creatinine are 21 and 1.0 with a glucose of 119 and a calcium of 8.9. Her chest x-ray today shows her lung fully expanded to the chest wall. The subcutaneous emphysema seen laterally is dissipating. Chest tubes are in good place. There are no infiltrates either on the PA or the lateral film. IMPRESSION: 1. Stage IB adenocarcinoma left lower lobe. 2. Postoperative day #4, status post left lower lobectomy. 3. Hypertension. 4. Hyperlipidemia. PLAN AND DISCUSSION: She has stage IB disease; she will not need adjuvant chemotherapy. I will discontinue her chest tube suction today. I will continue to diurese her. Hopefully I will be able to remove the tubes tomorrow and plan her discharge on Wednesday.
[2019-10-22 15:46] VITALS: BP 122/61
[2019-10-22 20:00] VITALS: BP 139/71
[2019-10-22] MEDS: SIMVASTATIN 20 MG TAB PO SCH (21:05)
[2019-10-22] MEDS: LOSARTAN 50 MG TAB PO SCH (21:05)
[2019-10-22] MEDS: amLODIPine 5 MG TAB PO SCH (21:05)
[2019-10-22] MEDS: FENTANYL/BUPIVACAINE/NACL BAG 250 ML EPIDURAL SCH (22:52)
[2019-10-23] VITALS (7 sets, daily range): BP systolic 117–138; BP diastolic 63–73
[2019-10-23] MEDS: LEVALBUTEROL 1.25 MG/0.5 ML CONCENTRATE NEB NEB SCH ×4 (02:06→20:09)
[2019-10-23] MEDS: SLF 3 ML SYR IV SCH ×3 (05:06→21:34)
[2019-10-23 05:29] LABS: BASO # 0.1 10^3/uL (0.0-0.2); BASO % 0.6 % (0.0-1.0); EOS # 0.6 10^3/uL (0.0-0.5); EOS % 5.2 % (0.0-3.0); HEMATOCRIT 37.1 % (36.0-47.0); HEMOGLOBIN 11.6 g/dl (12.0-15.5); LYMPH # 1.3 10^3/uL (1.5-5.0); LYMPH % 10.3 % (24.0-44.0); MEAN CORPUSCULAR HGB CONC 31.3 g/dl (32.0-36.5); MEAN CORPUSCULAR VOLUME 95.9 fl (80.0-96.0); MONO # 1.6 10^3/uL (0.0-0.8); MONO % 13.3 % (0.0-5.0); NEUTROPHILS # 8.5 10^3/uL (1.5-8.5); NEUTROPHILS % 70.2 % (36.0-66.0); PLATELET COUNT, AUTOMATED 322 10^3/uL (150-450); RED BLOOD COUNT 3.87 10^6/uL (4.00-5.40); WHITE BLOOD COUNT 12.2 10^3/uL (4.0-10.0)
[2019-10-23 05:52] LABS: BLOOD UREA NITROGEN 20 MG/DL (7-18); CALCIUM LEVEL 8.9 MG/DL (8.8-10.2); CARBON DIOXIDE LEVEL 29 MEQ/L (21-32); CHLORIDE LEVEL 100 MEQ/L (98-107); CREATININE FOR GFR 0.95 MG/DL (0.55-1.30); GLOMERULAR FILTRATION RATE > 60.0 (>39); GLUCOSE, FASTING 132 MG/DL (70-100); SODIUM LEVEL 136 MEQ/L (136-145)
--- NOTE | 2019-10-23 08:24 | REP ---
Clinical: Status post left lower lobectomy. Technique: PA and lateral. Comparison: 10/22/2019. Findings: Two left-sided chest tubes are in stable position. Pleuroparenchymal and postsurgical changes involving the left hemithorax remain relatively stable. No obvious new acute process identified. Impression: Stable chest x-ray. Stable left sided pleuroparenchymal changes. Electronically Signed by Gokul Amos MD 10/23/2019 08:15 A
[2019-10-23] MEDS: MOM 30ML SUSPENSION UDC PO SCH (09:00)
[2019-10-23] MEDS: DOCUSATE SODIUM 100 MG CAP PO SCH ×2 (09:00→21:00)
[2019-10-23] MEDS ORDERED: FUROSEMIDE 40 MG/4 ML VIAL (J1940) IV ONE (09:15)
--- NOTE | 2019-10-23 09:34 | IPN ---
DATE: 10/23/2019 This is now the fifth postoperative day for Mrs. Treviño. She is doing well, and her pain is being controlled with the epidural. There is no air leak. Her vital signs show a maximum temperature (Tmax) of 99.7 with a heart respiratory rate that is constant at 18 who is 95% saturated on room air and whose blood pressure is ranging between 122/61-139/71. Her intake and output for the past 24 hours has been recorded as 1220 in and 2975 out for a negativity of 1755 mL. She has put out 175 mL out the chest tube. She is recorded as weighing 133.8 kg up from 63.8 kg yesterday; I suspect the 133 is in pounds rather kilos. On physical examination, she has some bibasilar crackles on either side, more on the left than the right. She also has some coarse rhonchi which clear with coughing. Percussion note is full to the diaphragm. Cardiac exam is without murmurs, clicks, gallops or rubs. I cannot feel her point of maximum impulse (PMI). S1, S2 are normal. Abdomen is soft, nontender. Bowel sounds are positive. There is no hepatomegaly. No costovertebral angle (CVA) tenderness. Extremities show no pretibial edema. No calf tenderness. No differential swelling of the upper extremities. Skin is warm, dry and perfused without cyanosis or mottling, including that of the nail beds and the knees. Neck is supple. There is no jugular venous distention, no subcutaneous emphysema. Trachea is midline. Mouth shows her mucous membranes to be pink and moist. Lips and commissures without lesions. There is no thrush. Eyes show her pupils to be equal and reactive. Extraocular motions intact. Sclerae nonicteric. Neurologic shows II-XII intact along with gross motor and gross sensation intact. Gait is not tested. Psychiatric shows her to be awake and alert, oriented times three with appropriate mood and affect and conversational. Her white count today is 12.2, continuing to decrease, with a hemoglobin and hematocrit of 11.6 and 37.1, increased from hemoconcentration. Platelet count is 322 and differential shows 70% neutrophils, 10% lymphocytes, 13% monocytes. There are no immature forms. No toxic granulations. Her electrolytes are normal with a BUN and creatinine of 20 and 0.95 with calcium of 8.9 and a glucose of 132. Chest x-ray shows her lung fully expanded to the chest wall. There may be a small amount of air at the diaphragm where the lung is not fully expanded to the diaphragm. Subcutaneous emphysema is dissipating laterally. Chest tubes are in good place. IMPRESSION: 1. Stage IB adenocarcinoma of left lower lobe. 2. Postoperative day #5 status post left lower lobectomy. 3. Hypertension. 4. Hyperlipidemia. PLAN AND DISCUSSION: I will discontinue her chest tubes, wean her epidural and discontinue her [place]. Will put her on oral pain medication, and if all goes well, plan for discharge in the morning. I will also gently diurese her.
[2019-10-23] MEDS: PANTOPRAZOLE 40MG TAB (PROTONIX) PO SCH (09:55)
[2019-10-23] MEDS: HEPARIN SOD (PORCINE) 5000 UNITS/ML VIAL (J1644 PER 1000UNITS) SC SCH ×2 (09:55→21:32)
[2019-10-23] MEDS: GABAPENTIN 300 MG CAP PO SCH ×3 (09:55→21:33)
[2019-10-23] MEDS: OCUVITE 1 TAB PO SCH (09:55)
[2019-10-23] MEDS: BRIMONIDINE 0.1% OPHTH SOLN 5 ML OU SCH ×2 (09:55→21:32)
[2019-10-23] MEDS: VITAMIN D 1,000 INTERNATIONAL UNITS TABLET PO SCH (09:55)
[2019-10-23] MEDS: amLODIPine 5 MG TAB PO SCH (21:33)
[2019-10-23] MEDS: LOSARTAN 50 MG TAB PO SCH (21:33)
[2019-10-23] MEDS: SIMVASTATIN 20 MG TAB PO SCH (21:33)
[2019-10-24] VITALS: BP 128/62
[2019-10-24] MEDS: LEVALBUTEROL 1.25 MG/0.5 ML CONCENTRATE NEB NEB SCH ×2 (01:45→07:49)
[2019-10-24 04:00] VITALS: BP 114/63
[2019-10-24] MEDS: SLF 3 ML SYR IV SCH (05:41)
[2019-10-24 05:51] LABS: BASO # 0.1 10^3/uL (0.0-0.2); BASO % 0.6 % (0.0-1.0); EOS # 0.6 10^3/uL (0.0-0.5); EOS % 4.7 % (0.0-3.0); HEMATOCRIT 38.7 % (36.0-47.0); HEMOGLOBIN 12.2 g/dl (12.0-15.5); LYMPH # 1.4 10^3/uL (1.5-5.0); LYMPH % 11.3 % (24.0-44.0); MEAN CORPUSCULAR HGB CONC 31.5 g/dl (32.0-36.5); MEAN CORPUSCULAR VOLUME 95.1 fl (80.0-96.0); MONO # 1.7 10^3/uL (0.0-0.8); MONO % 13.3 % (0.0-5.0); NEUTROPHILS # 8.8 10^3/uL (1.5-8.5); NEUTROPHILS % 69.5 % (36.0-66.0); PLATELET COUNT, AUTOMATED 334 10^3/uL (150-450); RED BLOOD COUNT 4.07 10^6/uL (4.00-5.40); WHITE BLOOD COUNT 12.7 10^3/uL (4.0-10.0)
[2019-10-24 06:12] LABS: BLOOD UREA NITROGEN 21 MG/DL (7-18); CALCIUM LEVEL 8.6 MG/DL (8.8-10.2); CARBON DIOXIDE LEVEL 32 MEQ/L (21-32); CHLORIDE LEVEL 100 MEQ/L (98-107); GLOMERULAR FILTRATION RATE > 60.0 (>39); GLUCOSE, FASTING 108 MG/DL (70-100); POTASSIUM SERUM 3.9 MEQ/L (3.5-5.1); SODIUM LEVEL 137 MEQ/L (136-145)
[2019-10-24] MEDS: ACETAMINOPHEN TAB 650MG DOSE (2X325MG) PO PRN (07:23)
[2019-10-24 08:00] VITALS: BP 113/59
--- NOTE | 2019-10-24 08:51 | REP ---
Clinical: Status post left lower lobectomy. Technique: PA and lateral. Comparison: 10/23/2019. Findings: The chest tubes have been removed and no obvious residual pneumothorax is appreciated. Left mid to lower lobe opacities are again noted and similar to prior examination suggesting elements of air space disease and small pleural effusion. Nondisplaced left rib fractures remain stable. Mild subcutaneous emphysema is again noted. The right hemithorax is clear/stable. The mediastinum and cardiac silhouette are within normal limits. Impression: 1. Chest tubes removed. No obvious residual pneumothorax. 2. Left sided opacities suggesting small pleural fluid and air space disease again noted. 3. No new acute process. Electronically Signed by Gokul Amos MD 10/24/2019 08:43 A
[2019-10-24] MEDS: MOM 30ML SUSPENSION UDC PO SCH (09:00)
[2019-10-24] MEDS: DOCUSATE SODIUM 100 MG CAP PO SCH (09:00)
[2019-10-24] MEDS: PANTOPRAZOLE 40MG TAB (PROTONIX) PO SCH (09:23)
[2019-10-24] MEDS: BRIMONIDINE 0.1% OPHTH SOLN 5 ML OU SCH (09:23)
[2019-10-24] MEDS: GABAPENTIN 300 MG CAP PO SCH (09:23)
[2019-10-24] MEDS: VITAMIN D 1,000 INTERNATIONAL UNITS TABLET PO SCH (09:23)
[2019-10-24] MEDS: OCUVITE 1 TAB PO SCH (09:23)
[2019-10-24] MEDS: HEPARIN SOD (PORCINE) 5000 UNITS/ML VIAL (J1644 PER 1000UNITS) SC SCH (09:23)
--- NOTE | 2019-10-24 10:19 | DSES ---
DATE OF ADMISSION: 10/18/2019 DATE OF DISCHARGE: 10/24/2019 DISCHARGE DIAGNOSES: 1. Stage 1B adenocarcinoma left lower lobe. 2. Postoperative day #6 status post left lower lobectomy. 3. Hypertension. 4. Hyperlipidemia. 5. 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 6. Asthma. HOSPITAL COURSE: The patient is a 78-year-old white female who first noted chest pain in her left lower hemithorax which led to a CT scan after being treated for a presumed pneumonia. CT scan showed a mass in the left lower lobe and she underwent a needle biopsy. She suffered a pneumothorax at that time which required a chest tube. She opted for surgery after being cleared by cardiology. Her pulmonary function test preoperative showed FEV1 of 1.49 which is 100% predicted with a JAYDA of 11.48 which is 64% of her predicted. She had a benign postoperative course with her pain being extraordinary well controlled. Her chest tube was removed on the 5th postoperative day after air leak had resolved. The lung was fully expanded to the chest wall on chest x-rays. Her white count on discharge is 12.7 with a hemoglobin and hematocrit of 12.2 and 38.7 and a platelet count of 334. Her chemistry showed normal electrolytes with a BUN and creatinine of 21 and 0.90 with a glucose of 108 and potassium 8.6. She is being discharged on her home medications which include amlodipine 5 mg by mouth daily, Alphagan 1 drop OU twice a day, vitamin D3, cholecalciferol 1000 units daily, Prolia 60 mg subcu as directed. Wixela 250/50 1 puff twice a day, Gabapentin 300 mg by mouth three times a day, Loratadine 10 mg daily, Losartan 50 mg daily, Sustain 1 drop OU as needed for dry eyes, Simvastatin 20 mg every evening. She is going to take Tylenol, Aleve or Ibuprofen for pain control. If her pain is not controlled as is it today she will call the office and we will send in a script for stronger pain medication. She will return to see me in one week with a chest x-ray, and postoperative followup. Her discharge chest x-ray shows some dissipating subcutaneous emphysema. On the left lateral chest wall with the lung fully expanded to the chest wall.
== END 2019-10-24 11:52 | disposition home or self-care (01) | DRG 165 ==
LOC: M OR 07:22 → M ICU 14:17 → M PCU 10-19 10:40
PROVIDERS: ADMIT Thoracic Surgery (Cardiothoracic Vascular Surgery); ATTEND Thoracic Surgery (Cardiothoracic Vascular Surgery)
PROC: 0BBG0ZX Excision of Left Upper Lung Lobe, Open Approach, Diagnostic (ICD-10-PCS; 2019-10-18)
PROC: 07B70ZX Excision of Thorax Lymphatic, Open Approach, Diagnostic (ICD-10-PCS; 2019-10-18)
PROC: 0BTJ0ZZ Resection of Left Lower Lung Lobe, Open Approach (ICD-10-PCS; principal; 2019-10-18 09:45)
DX: C34.32 Malignant neoplasm of lower lobe, left bronchus or lung (principal); I10 Essential (primary) hypertension; E78.5 Hyperlipidemia, unspecified; J45.909 Unspecified asthma, uncomplicated; Z90.81 Acquired absence of spleen

== ENCOUNTER → 2019-11-02 | Outpatient (CLI) | payer MEDICARE, BC ==
[~2019-11-02] MED LIST changes: -BUPIVACAINE HCL 0.5% 10 ML VIAL As Ordered ONE; -BUPIVACAINE LIPOSOME/PF 1.3% 20ML VIAL (13.3MG/ML)(EXPAREL)(C9290 PER1MG) As Ordered ONE; -CETACAINE SPRAY 5GM As Ordered ONE; -LIDOCAINE 1% MDV 20ML VIAL SQ PRN; -LR 1,000 ML IV ONE; -MUPIROCIN 2% OINT 22 GM TUBE TOP ONE; -ceFAZolin SOD 2 GM in IV 1 EA IV ONE
--- NOTE | 2019-11-02 08:47 | REPPI ---
PA and lateral chest: Comparison is 10/24/2019. The patient is status post left lower lobectomy. There is focal atelectasis in the left costophrenic angle. There are nondisplaced left rib fractures. This is unchanged. The subcutaneous emphysema. No wall left lateral chest wall has resolved. The left lung is otherwise clear. Right lung is clear. Cardiac size normal. The ya, mediastinum, skeletal structures are otherwise unremarkable. Impression: Focal atelectasis in the left costophrenic angle. The left chest wall subcutaneous emphysema has resolved. Nondisplaced left rib fractures, unchanged. Half Electronically Signed by Berto Avina MD 11/02/2019 08:38 A
== END ==
LOC: M PLAIMG 08:16
PROVIDERS: ATTEND Thoracic Surgery (Cardiothoracic Vascular Surgery)
DX: C34.32 Malignant neoplasm of lower lobe, left bronchus or lung (principal); J98.11 Atelectasis; S22.42XA Multiple fractures of ribs, left side, initial encounter for closed fracture; X58.XXXA Exposure to other specified factors, initial encounter

== ENCOUNTER → 2019-11-23 | Outpatient (CLI) | payer MEDICARE, BC ==
--- NOTE | 2019-11-23 10:41 | REPPI ---
PA and lateral chest: Comparison is 11/02/2019. Patient is status post left lower lobectomy. The focal atelectasis previously in the left costophrenic angle has improved. Nondisplaced rib fractures are again noted. There is pleural thickening along the left lateral chest wall extending into the left costophrenic angle. There is persisting mild effacement of the left costophrenic angle. There is no left pneumothorax. The right lung is clear. Cardiac size is normal. The ya, mediastinum and skeletal structures are otherwise unremarkable. Impression: The focal atelectasis in the left costophrenic angle has improved. There is persisting pleural thickening with slight effacement of the left costophrenic angle. Multiple left rib fractures with associated pleural thickening are again noted. Electronically Signed by Berto Avina MD 11/23/2019 10:33 A
== END ==
LOC: M PLAIMG 09:09
PROVIDERS: ATTEND Thoracic Surgery (Cardiothoracic Vascular Surgery)
DX: C34.32 Malignant neoplasm of lower lobe, left bronchus or lung (principal); Z48.3 Aftercare following surgery for neoplasm; S22.49XA Multiple fractures of ribs, unspecified side, initial encounter for closed fracture; X58.XXXA Exposure to other specified factors, initial encounter

== ENCOUNTER → 2020-04-09 | Outpatient (CLI) | payer MEDICARE, BC ==
[~2020-04-09] MED LIST changes: +AMLO1TAB24 PO; -AMLO5TAB6 PO; +AUGM875T28 PO; +D31000TA2 PO; +DIPH25TA4 PO; +OMEP-218; +OMEP1CAP73 PO; +PROAAER10 INH; +REFR0.5D8 OU
--- NOTE | 2020-05-31 11:41 | REP ---
CHEST X-RAY: CLINICAL: History of malignant neoplasm. TECHNIQUE: PA and lateral COMPARISON: 11/23/19 FINDINGS: Mediastinum and cardiac silhouette are within normal limits and stable. Lung hinkle are relatively clear and without discrete focal consolidation, effusion or pneumothorax. Skeletal structures are intact. IMPRESSION: Chronic stable changes. No acute cardiopulmonary process or focal consolidation. MTDD
== END ==
LOC: M RAD 09:51
PROVIDERS: ATTEND Thoracic Surgery (Cardiothoracic Vascular Surgery)
DX: R07.9 Chest pain, unspecified (principal); J45.30 Mild persistent asthma, uncomplicated; Z85.118 Personal history of other malignant neoplasm of bronchus and lung

== ENCOUNTER 2020-07-18 11:19 | Inpatient (IN) | payer MEDICARE, BC ==
[~2020-07-18] VITALS: Ht 149.9 cm; Wt 64.1 kg
[~2020-07-18 11:19] MED LIST changes: -AUGM875T28 PO; -D31000TA2 PO; -DIPH25TA4 PO; -OMEP-218; -OMEP1CAP73 PO; -PROAAER10 INH; -REFR0.5D8 OU
[2020-07-18] MEDS ORDERED: ADV250INH INH (11:33)
[2020-07-18] MEDS ORDERED: OMEP-218 (11:33)
--- NOTE | 2020-07-18 12:08 | REP ---
INDICATION: abd pain. COMPARISON: 04/09/2020 as well as other prior exams. TECHNIQUE: SINGLE PORTABLE AP VIEW OF THE CHEST WAS PERFORMED. FINDINGS: A skin fold projects over the left mid and lower hemithorax. There is mild fibro atelectatic change in the left lung base. There is no definite acute infiltrate. Mildly prominent cardiac silhouette is again noted as well as mild calcification and tortuosity of the thoracic aorta. IMPRESSION: NO ACUTE PULMONARY DISEASE. <Electronically signed by Berto Milner > 07/18/20 [id number]
[2020-07-18 12:13] LABS: BASO # 0.1 10^3/uL (0.0-0.2); BASO % 0.2 % (0.0-1.0); HEMATOCRIT 48.8 % (36.0-47.0); HEMOGLOBIN 15.8 g/dl (12.0-15.5); LYMPH # 0.5 10^3/uL (1.5-5.0); LYMPH % 2.4 % (24.0-44.0); MEAN CORPUSCULAR HEMOGLOBIN 30.3 pg (27.0-33.0); MEAN CORPUSCULAR HGB CONC 32.4 g/dl (32.0-36.5); MEAN CORPUSCULAR VOLUME 93.5 fl (80.0-96.0); MONO # 0.9 10^3/uL (0.0-0.8); MONO % 3.8 % (0.0-5.0); NEUTROPHILS # 20.7 10^3/uL (1.5-8.5); NEUTROPHILS % 93.2 % (36.0-66.0); PLATELET COUNT, AUTOMATED 417 10^3/uL (150-450); RED BLOOD COUNT 5.22 10^6/uL (4.00-5.40); WHITE BLOOD COUNT 22.2 10^3/uL (4.0-10.0)
[2020-07-18] MEDS ORDERED: NS 1,000 ML IV SCH (12:20)
[2020-07-18] MEDS ORDERED: ONDANSETRON 4MG/2ML VIAL IV ONE (12:30)
[2020-07-18] MEDS ORDERED: MORPHINE 4 MG/ML 1ML VIAL/SYRINGE (J2270) IV ONE ×2 (12:30→16:30)
[2020-07-18 12:41] LABS: ALBUMIN 4.6 GM/DL (3.2-5.2); BILIRUBIN,DIRECT 0.2 MG/DL (0.0-0.2); BILIRUBIN,TOTAL 0.7 MG/DL (0.2-1.0); TOTAL PROTEIN 8.6 GM/DL (6.4-8.2)
[2020-07-18 13:07] LABS: BLOOD UREA NITROGEN 17 MG/DL (7-18); CALCIUM LEVEL 10.6 MG/DL (8.8-10.2); CARBON DIOXIDE LEVEL 27 MEQ/L (21-32); CHLORIDE LEVEL 102 MEQ/L (98-107); CK-MB VALUE MASS 3.1 NG/ML (<3.6); CPK CREATINE PHOSPHOKINASE 215 U/L (26-192); CREATININE FOR GFR 1.07 MG/DL (0.55-1.30); GLOMERULAR FILTRATION RATE 52.5 (>32); GLUCOSE, FASTING 138 MG/DL (70-100); MB/CK RELATIVE INDEX 1.44 (< OR =4); POTASSIUM SERUM 3.9 MEQ/L (3.5-5.1); SODIUM LEVEL 135 MEQ/L (136-145); TROPONIN I < 0.02 NG/ML (< 0.10)
[2020-07-18] MEDS: GASTROGRAFIN SOLUTION 30ML PO SCH ×2 (13:15→13:59)
[2020-07-18] MEDS ORDERED: MORPHINE 2 MG/ML 1ML VIAL (J2270) IV ONE ×2 (13:15→17:15)
[2020-07-18] MEDS ORDERED: ISOVUE-370 76% 100ML VIAL As Ordered ONE (14:39)
--- NOTE | 2020-07-18 15:30 | REP ---
INDICATION: gen abd pain. COMPARISON: Comparison CT study June 22, 2019.. TECHNIQUE: 100 mL of intravenous Isovue 370 is administered. Helical scanning is acquired. 3 mm axial images re-formatted. Coronal and sagittal MPR images are generated. FINDINGS: Preliminary digital manuscript reader radiograph demonstrates an unremarkable bowel gas pattern. There is a surgical suture line in the left lower lobe of the lung at the top of the imaging field of view. Lung bases are otherwise clear. There is diffuse fatty infiltration of the liver. There are 3 or 4 areas of hypervascularity in the periphery of the right lobe unchanged from the comparison CT study 1 year ago most consistent with small benign hemangiomas. There is a left lobe cyst measuring 1.8 cm in diameter. These findings are unchanged. There is a 2nd smaller cyst in the right lobe measuring 9 mm also unchanged. Cholelithiasis is seen. Normal adrenal glands are observed. The spleen is surgically absent and it appears that the tail of pancreas has been resected. This appearance is unchanged from the study done 1 year ago 06/22/2019. No pancreatic mass or cyst is seen. There is calcific atherosclerotic plaquing in the proximal origins of the renal arteries bilaterally. Distal aortic ectasia is seen no beto aneurysm. No retroperitoneal mass or adenopathy is seen. A ventral hernia repair is noted. There is a lower pole cyst in the left kidney measuring 2.0 cm in diameter. There is a midpole cyst in the right kidney measuring 1.7 cm. Small and large intestinal bowel loops are unremarkable. There is a left ovarian cyst measuring 3.1 cm in greatest diameter. This is essentially unchanged from prior study although it previously measured 3.7 cm in greatest diameter. There is a small fibroid in the uterus fundal region measuring 2.0 cm in diameter. The urinary bladder is empty at the time of scanning and unremarkable. No abdominal wall defect is seen. The appendix is surgically absent. There are advanced degenerative spondylosis changes in the lumbar and thoracolumbar spine. No bony destructive lesion. There is no evidence of free intraperitoneal air or abnormal fluid collection. There are a few loops of air-filled small bowel in the central abdomen nonspecific. No obstructive lesion is seen. IMPRESSION: Fatty infiltration of the liver. Stable hepatic cysts. Post splenectomy and partial pancreatectomy. Stable bilateral renal and left ovarian cysts. Cholelithiasis. Status post ventral hernia repair. Small uterine leiomyoma. Prior appendectomy. No acute abdominal or pelvic abnormality seen. <Electronically signed by Louis Oliver > 07/18/20 [id number]
--- NOTE | 2020-07-18 17:40 | REPVR ---
PROCEDURE INFORMATION: Exam: US Abdomen, Limited; Right Upper Quadrant Exam date and time: 07/18/2020 5:23 PM Age: 79 years old Clinical indication: Abdominal pain; Acute; Additional info: Ruq pain TECHNIQUE: Imaging protocol: US abdomen. Real time ultrasound with image documentation. Limited exam focused on the right upper quadrant. COMPARISON: CT ABD/PEL W/IV ORAL CONTRAS 07/18/2020 3:04 PM FINDINGS: Liver: The liver demonstrates increased echogenicity with decreased visualization of periportal fat without sound attenuation. 7 mm right lobe hepatic cyst. Gallbladder: Several dependent small gallstones and sludge are noted posteriorly in the nondistended gallbladder. No gallbladder wall thickening or pericholecystic fluid identified. Common bile duct: The common bile duct measures 4.5 mm. No ductal calculi as visualized. Pancreas: The pancreas is obscured by bowel gas. Right kidney: The right kidney measures 10.0 x 4.9 x 5.4 cm. Unremarkable. Other findings: The patient's body habitus, limited sonographic windows diminishes the image detail. IMPRESSION: 1. Limitations as above. 2. Cholelithiasis and sludge, without specific sonographic evidence of acute cholecystitis. 3. Fatty infiltration of the liver. 4. Small benign hepatic cyst. Electronically signed by: Cleveland Salcedo On 07/18/2020 17:40:27 PM
[2020-07-18] MEDS ORDERED: OMEP1CAP73 PO (19:44)
[2020-07-18] MEDS ORDERED: D31000TA2 PO (19:44)
[2020-07-18] MEDS ORDERED: REFR0.5D8 OU (19:44)
[2020-07-18] MEDS ORDERED: PROAAER10 INH (19:44)
[2020-07-18] MEDS ORDERED: DIPH25TA4 PO (19:44)
[2020-07-18] MEDS: HEPARIN SOD (PORCINE) 5000UNITS/ML 1ML VIAL/SYRINGE SC SCH (21:00)
[2020-07-18] MEDS: BRIMONIDINE 0.1% OPHTH SOLN 5 ML OU SCH (21:00)
[2020-07-18] MEDS ORDERED: MAALOX 30 ML SUSP *UDC PO PRN (21:30)
[2020-07-18] MEDS ORDERED: MOM 30ML SUSPENSION UDC PO PRN (21:30)
[2020-07-18] MEDS ORDERED: ACETAMINOPHEN TAB 650MG DOSE (2X325MG) PO PRN (21:30)
[2020-07-18] MEDS ORDERED: ALBUTEROL 90 MCG/ACT 8GM HFA INHALER INH PRN (21:30)
[2020-07-18] MEDS: NS 1,000 ML IV SCH (22:28)
[2020-07-18 22:44] VITALS: BP 169/92
--- NOTE | 2020-07-18 23:29 | HPEPDOC ---
[facility] Medical History & Physical Date of Admission Jul 18, 2020 Date of Service: Jul 18, 2020 Primary Care Physician: Jr Russ Collins Attending Physician: DILAN TITUS MD History and Physical CHIEF COMPLAINT: Abdominal pain HISTORY OF PRESENT ILLNESS: Patient is an 79-year-old female who presented to the emergency department earlier today with a chief complaint of upper abdominal pain. Patient describes her having epigastric and right upper quadrant abdominal pain which she describes as constant and severe. She says this pain began at 2 AM on 07/18/2020. She was asleep at the time and this woke her from sleep. Patient states that she had been feeling like her normal self prior to this. Patient ate dinner the night before and did not have any issues. Patient denies feeling nauseous and has not vomited. Patient had a few soft bowel movements after the pain began but this did not affect the pain and a positive or negative way. Patient denies any chest pain or difficulty breathing. Patient says that she is not had anything to eat since the pain began as she does not feel very hungry. Patient says that she is usually quite active and goes to multiple different places throughout her day. PAST MEDICAL HISTORY: 1. Hypertension. 2. Mild intermittent asthma. 3. Hyperlipidemia. 4. Chronic back pain 5. Pancreatic mucinous cyst adenoma 6. Adenocarcinoma of the lung PAST SURGICAL HISTORY: 1. Distal pancreatectomy and splenectomy. 2. 2 ventral hernia repairs. 3. Dilatation and curettage. 4. Left lower lobectomy performed in October 2019 SOCIAL HISTORY: Patient currently lives at home by herself. 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 Patient denies current smoking. Patient says she quit 30 years ago and smoked about a half pack prior to that. Patient denies alcohol or illicit drug use. FAMILY HISTORY: Patient's father had a myocardial infarction when he was 96. Patient's mother of respiratory failure soon after being diagnosed with some stomach cancer ALLERGIES: Please see below. REVIEW OF SYSTEMS: General: Patient denies fevers, chills, night sweats, or weight loss HEENT: Patient denies headaches Cardiovascular: Patient denies chest pain Respiratory: Patient denies shortness of breath, cough GI: Patient reports abdominal pain but denies nausea, vomiting, or diarrhea : Patient denies increased frequency or pain with urination Extremities: Patient denies swelling or pain in extremities Neurological: Patient reports chronic paresthesias secondary to bulging disks in her back Skin: Patient denies any new rashes or lesions. Hematologic: Patient denies any easy bruising. Lymphatic: Patient denies any lumps lumps or bumps in neck, axilla, or groin HOME MEDICATIONS: Please see below. PHYSICAL EXAMINATION: VITAL SIGNS: See below General: Alert and oriented female patient who was laying on the emergency room stretcher when I walked into the room. Patient did not appear to be in any acute distress. HEENT: Normocephalic, atraumatic, moist mucous membranes. Neck: No lymphadenopathy or thyromegaly Cardiac: Regular rate and rhythm, 1/6 systolic murmur heard loudest over the second intercostal space on the right sternal border. Pulm: Clear to auscultation bilaterally. No wheezes, rhonchi, rales Abd: Nondistended, tender to palpation mostly in the epigastric and right upper quadrant area. There is no rebound tenderness. There is normal active bowel sounds Ext: No edema bilateral lower extremities, dorsalis pedis and posterior tibial pulses 2/4 Skin: No evidence of rash or other lesions. LABORATORY DATA: See below. IMAGING: A chest x-ray performed on 07/18/2020 was reported to show no acute pulmonary disease. A CT of the abdomen and pelvis with IV and oral contrast performed on 07/18/2020 was reported to show fatty infiltration of liver, stable hepatic cyst, post splenectomy and partial pancreatectomy. Stable bilateral renal and left ovarian cyst. Cholelithiasis, status post ventral hernia repair, small uterine leiomyoma, prior appendectomy, no acute abdominal or pelvic abnormality seen. An ultrasound of the right upper quadrant performed on 07/18/2020 was reported to show cholelithiasis and sludge, without specific sonographic evidence for acute cholecystitis, fatty infiltration of the liver, small benign hepatic cysts. MICROBIOLOGY: Please see below. ASSESSMENT: Patient is an 79-year-old female who presents to the emergency department with right upper quadrant abdominal pain and was not found to have any acute cholecystitis on imaging and was diagnosed with biliary colic. . PLAN: 1. Biliary colic. This is most likely the cause of the patient's right upper quadrant abdominal pain. We will give the patient pain medication and antinausea medication. Patient will also receive IV antibiotics for the time being secondary to the fact that the patient is asplenic and may be early on in the course of a possible cholecystitis although this has not been seen on images. Patient was placed on a low-fat diet but she can be advanced as tolerated. Patient states that she is currently not hungry however, if she doesn't appear hungry, she can get some food to eat. Patient had a leukocytosis of 22.2 with a left shift. 2. Leukocytosis. Leukocytosis was 22.2, no other source of infection has been able to be identified. If there is a source of infection is most likely intra- abdominal from cholecystitis. IV Zosyn has been started for the patient and patient be reevaluated in the morning. 3. Hypertension. We will continue the patient's home medications. 4. Hyperlipidemia. We'll continue patient's home medications. 5. GERD. We'll continue patient's home medications. 6. Vitamin D deficiency. We'll continue patient's home medications. 7. Chronic back pain. We'll continue the patient's home gabapentin 3 mg 3 times a day. 8. DVT prophylaxis: Heparin 5000 units twice a day. 9. CODE STATUS: Full code Vital Signs Vital Signs Date Time Temp Pulse Resp B/P (MAP) Pulse Ox O2 Delivery O2 Flow Rate FiO2 07/18/20 22:38 18 07/18/20 22:34 97.0 07/18/20 22:00 70 151/69 (96) 93 Room Air Laboratory Data Labs 24H Laboratory Tests 2 07/18/20 12:02: POC Troponin I (Misc) 0.00 07/18/20 12:03: Immature Granulocyte % (Auto) 0.4, Neutrophils (%) (Auto) 93.2H, Lymphocytes (%) (Auto) 2.4L, Monocytes (%) (Auto) 3.8, Eosinophils (%) (Auto) 0.0, Basophils (%) (Auto) 0.2, Neutrophils # (Auto) 20.7H, Lymphocytes # (Auto) 0.5L, Monocytes # (Auto) 0.9H, Eosinophils # (Auto) 0.0, Basophils # (Auto) 0.1, Nucleated Red Blood Cells % (auto) 0.0, Anion Gap 6L, Glomerular Filtration Rate 52.5, Calcium Level 10.6H, Total Bilirubin 0.7, Direct Bilirubin 0.2, Aspartate Amino Transf (AST/SGOT) 34, Alanine Aminotransferase (ALT/SGPT) 34, Alkaline Phosphatase 119H, Total Creatine Kinase 215H, Creatine Kinase MB 3.1, Creatine Kinase MB Relative Index 1.44, Troponin I < 0.02, Total Protein 8.6H, Albumin 4.6, Albumin/Globulin Ratio 1.2, Lipase 111 07/18/20 12:15: POC Glucose (Misc Panel) 145H, POC Sodium (Misc Panel) 138, POC Potassium (Misc Panel) 4.0, POC Chloride (Misc Panel) 100, POC Total CO2 (Misc Panel) 24.0, POC Blood Urea Nitrogen (Misc Panel 21, POC Ionized Calcium (Misc Panel) 5.4H, POC Creatinine (Misc Panel) 0.9, POC Hematocrit (Misc Panel) 51.0 07/18/20 17:35: Urine Color STRAW, Urine Appearance CLEAR, Urine pH 6.0, Urine Specific [place] 1.050, Urine Protein NEGATIVE, Urine Glucose (UA) NEGATIVE, Urine Ketones NEGATIVE, Urine Blood NEGATIVE, Urine Nitrite NEGATIVE, Urine Bilirubin NEGATIVE, Urine Urobilinogen 0.2, Urine Leukocyte Esterase NEGATIVE, Urine WBC (Auto) 1, Urine RBC (Auto) 0, Urine Hyaline Casts (Auto) 0, Urine Bacteria (Auto) NEGATIVE, Urine Squamous Epithelial Cells 0, Urine Sperm (Auto) CBC/BMP Laboratory Tests 07/18/20 12:03 Microbiology Microbiology 07/18/20 Blood Culture, Received Pending 07/18/20 Blood Culture, Received Pending Home Medications Scheduled Amlodipine Besylate (Amlodipine Besylate) 5 Mg Tab, 5 MG PO QHS Brimonidine Tartrate (Alphagan P) 100 Drop/5 Ml Soln, 1 DROP OU BID Cholecalciferol (Vitamin D3) (Vitamin D3) 1,000 Unit Tablet, 1,000 UNITS PO DAILY Fluticasone Propion/Salmeterol (Wixela 250-50 Inhub) 1 Each Blst.w.dev, 1 PUFF INH BID Gabapentin (Gabapentin) 300 Mg Cap, 300 MG PO TID Losartan Potassium (Losartan Potassium) 50 Mg Tablet, 50 MG PO QHS Omeprazole (Omeprazole) 20 Mg Capsule.dr, 20 MG PO DAILY Simvastatin (Simvastatin) 20 Mg Tab, 20 MG PO QPM Vit A/Vit C/Vit E/Zinc/Copper (Preservision Areds Softgel) 1 Each Capsule, 1 CAP PO DAILY Scheduled PRN Acetaminophen (Acetaminophen) 500 Mg Tablet, 1,000 MG PO Q6H PRN for PAIN Albuterol Sulfate (Proair Hfa) 8.5 Gm Hfa.aer.ad, 2 PUFF INH QID PRN for SHORTNESS OF BREATH Carboxymethylcellulose Sodium (Refresh Tears) 15 Ml Drops, 1 DROP OU QID PRN for DRY EYES diphenhydrAMINE HCl (diphenhydrAMINE HCl) 25 Mg Tablet, 25 MG PO Q6H PRN for ALLERGY SYMPTOMS Allergies Coded Allergies: aspirin (Verified Adverse Reaction, Intermediate, ASTHMA EXACERBATION, 10/18/19) succinylcholine (Verified Adverse Reaction, Unknown, FAMILY HISTORY OF COMA, 10/18/19) A-FIB/CHADSVASC A-FIB History Current/History of A-Fib/PAF?: No GME ATTESTATION GME ATTESTATION My faculty preceptor for this patient encounter was physically present during the encounter and was fully available. All aspects of the patient interview, examination, medical decision making process, and medical care plan development were reviewed and approved by the faculty preceptor. The faculty preceptor is aware and concurs with the plan as stated in the body of this note and will attest to such by his/her cosignature. COREY JOHNSTON DO Jul 18, 2020 23:29
[2020-07-18] MEDS ORDERED: MORPHINE 2 MG/ML 1ML VIAL (J2270) IV PRN (23:30)
[2020-07-18] MEDS ORDERED: ONDANSETRON 4MG/2ML VIAL IV PRN (23:30)
[2020-07-18] MEDS ORDERED: PERCOCET 5MG/325MG TAB PO PRN (23:30)
[2020-07-18] MEDS: SIMVASTATIN 20 MG TAB PO SCH (23:40)
[2020-07-18] MEDS: GABAPENTIN 300 MG CAP PO SCH (23:40)
[2020-07-18] MEDS: amLODIPine 5 MG TAB PO SCH (23:41)
[2020-07-18] MEDS: LOSARTAN 50MG TABLET PO SCH (23:41)
[2020-07-18] MEDS: PIPERACILLIN/TAZOBACTAM SOD 3.375 GM in D5W MINI-BAG PLUS 50 ML IV SCH (23:42)
[2020-07-19] MEDS: PIPERACILLIN/TAZOBACTAM SOD 3.375 GM in D5W MINI-BAG PLUS 50 ML IV SCH ×4 (05:19→23:10)
[2020-07-19 06:00] VITALS: BP 117/62
[2020-07-19 06:25] LABS: BASO # 0.1 10^3/uL (0.0-0.2); BASO % 0.8 % (0.0-1.0); EOS # 0.4 10^3/uL (0.0-0.5); EOS % 3.9 % (0.0-3.0); HEMATOCRIT 37.1 % (36.0-47.0); LYMPH # 1.8 10^3/uL (1.5-5.0); LYMPH % 17.3 % (24.0-44.0); MEAN CORPUSCULAR HEMOGLOBIN 30.4 pg (27.0-33.0); MEAN CORPUSCULAR HGB CONC 32.1 g/dl (32.0-36.5); MEAN CORPUSCULAR VOLUME 94.6 fl (80.0-96.0); MONO # 1.2 10^3/uL (0.0-0.8); MONO % 11.4 % (0.0-5.0); NEUTROPHILS # 6.7 10^3/uL (1.5-8.5); NEUTROPHILS % 66.2 % (36.0-66.0); PLATELET COUNT, AUTOMATED 324 10^3/uL (150-450); RED BLOOD COUNT 3.92 10^6/uL (4.00-5.40); WHITE BLOOD COUNT 10.1 10^3/uL (4.0-10.0)
[2020-07-19 06:29] LABS: HEMOGLOBIN 11.9 g/dl (12.0-15.5)
[2020-07-19 06:56] LABS: ALBUMIN 2.9 GM/DL (3.2-5.2); BILIRUBIN,TOTAL 1.1 MG/DL (0.2-1.0); CALCIUM LEVEL 9.3 MG/DL (8.8-10.2); CREATININE FOR GFR 1.05 MG/DL (0.55-1.30); GLOMERULAR FILTRATION RATE 53.7 (>32); POTASSIUM SERUM 3.9 MEQ/L (3.5-5.1); TOTAL PROTEIN 6.4 GM/DL (6.4-8.2)
[2020-07-19 06:57] LABS: MAGNESIUM LEVEL 2.1 MG/DL (1.8-2.4)
[2020-07-19] MEDS ORDERED: OMEPRAZOLE 20 MG CAP PO SCH (09:00)
[2020-07-19] MEDS: VITAMIN D 1,000 INTERNATIONAL UNITS TABLET PO SCH (09:08)
[2020-07-19] MEDS: BRIMONIDINE 0.1% OPHTH SOLN 5 ML OU SCH ×2 (09:08→21:31)
[2020-07-19] MEDS: GABAPENTIN 300 MG CAP PO SCH ×3 (09:08→21:29)
[2020-07-19] MEDS: OCUVITE 1 TAB PO SCH (09:08)
[2020-07-19] MEDS: NS 1,000 ML IV SCH ×2 (09:08→22:20)
[2020-07-19] MEDS: HEPARIN SOD (PORCINE) 5000UNITS/ML 1ML VIAL/SYRINGE SC SCH ×2 (09:09→21:31)
--- NOTE | 2020-07-19 09:15 | ECGEPIP ---
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
[2020-07-19] MEDS: ADVAIR HFA 230/21MCG INHALER INH SCH ×2 (09:58→19:11)
[2020-07-19 14:00] VITALS: BP 124/59
--- NOTE | 2020-07-19 15:37 | IPNPDOC ---
Text Note Date of Service The patient was seen on 07/19/20. NOTE Subjective: [id number] female with a PMHx of HTN, DLP, Asthma, Adenocarcinoma of the lung, Pancreatic mucinous cyst adenoma, Chronic back pain, who presented to ER with upper abdominal discomfort. Patient did not experience any nausea or vomiting but did report a poor appetite. Patient was admitted to the hospitalist service for further evaluation and treatment. Patient was seen and examined at the bedside. Currently patient still reports some abdominal discomfort. She denies any nausea, vomiting. Denies any chest pain, shortness of breath or palpitations. Has had a bowel movement. Denies any diarrhea. Denies any urinary discomfort. Objective: Vitals (See below) General: Sitting up in chair, appears comfortable, AAOx3 HEENT: NC, AT CVS: +S1S2 Lungs: Fair air entry b/l, no appreciable wheezing, rhonchi or rales Abdomen: Soft, non-distended, tenderness at RUQ Extremities: no evidence of edema, - Calf tenderness Assessment and plan: Abdominal pain - possibly 2/2 biliary colic - Patient has reported RUQ pain, no associated nausea and vomiting - History of Pancreatic mucinous cyst adenoma - Leukocytosis improving - No significant elevation of liver enzymes / No elevation of Lipase - CT abdomen / pelvis 07/19: Fatty infiltration of the liver. Stable hepatic cysts. Post splenectomy and partial pancreatectomy. Stable bilateral renal and left ovarian cysts. Cholelithiasis. Status post ventral hernia repair. Small uterine leiomyoma. Prior appendectomy. No acute abdominal or pelvic abnormality seen. - c/w symptomatic control with Pain medications and Anti-emetics - c/w Zosyn (Day #2) - Discussed with general surgery; will c/w clear liquid diet for now and advance slowly HTN - BP well controlled - c/w Losartan / Amlodipine DLP - c/w Simvastatin Vitamin D deficiency - c/w Vitamin D supplementation Asthma - No evidence of exacerbation - c/w inhaled therapy as ordered Adenocarcinoma of the lung - s/p L lower lobectomy (10/2019) Chronic back pain - c/w Gabapentin GERD - c/w Omeprazole DVT prophylaxis - c/w Heparin VS,Fishbone, I+O VS, Fishbone, I+O Laboratory Tests 07/19/20 06:05 Vital Signs Date Time Temp Pulse Resp B/P (MAP) Pulse Ox O2 Delivery O2 Flow Rate FiO2 07/19/20 06:00 96.8 65 18 117/62 (80) 94 Room Air I&O- Last 24 Hours up to 6 AM 07/19/20 06:00 Intake Total 1850 ml Output Total 0 ml Balance 1850 ml JACOB CHING MD Jul 19, 2020 15:37
[2020-07-19] MEDS: SIMVASTATIN 20 MG TAB PO SCH (17:16)
[2020-07-19 21:30] VITALS: BP 120/60
[2020-07-19] MEDS: LOSARTAN 50MG TABLET PO SCH (21:30)
[2020-07-19] MEDS: amLODIPine 5 MG TAB PO SCH (21:31)
[2020-07-19 22:00] VITALS: BP 120/60
[2020-07-20] MEDS: PIPERACILLIN/TAZOBACTAM SOD 3.375 GM in D5W MINI-BAG PLUS 50 ML IV SCH (05:46)
[2020-07-20 06:00] VITALS: BP 120/59
[2020-07-20] MEDS ORDERED: OMEPRAZOLE 20 MG CAP PO SCH (06:00)
[2020-07-20 06:39] LABS: BASO # 0.1 10^3/uL (0.0-0.2); BASO % 1.9 % (0.0-1.0); EOS # 0.4 10^3/uL (0.0-0.5); EOS % 6.4 % (0.0-3.0); HEMATOCRIT 34.8 % (36.0-47.0); HEMOGLOBIN 11.1 g/dl (12.0-15.5); LYMPH # 1.6 10^3/uL (1.5-5.0); LYMPH % 22.9 % (24.0-44.0); MEAN CORPUSCULAR HEMOGLOBIN 30.3 pg (27.0-33.0); MEAN CORPUSCULAR HGB CONC 31.9 g/dl (32.0-36.5); MEAN CORPUSCULAR VOLUME 95.1 fl (80.0-96.0); MONO # 0.7 10^3/uL (0.0-0.8); NEUTROPHILS % 58.5 % (36.0-66.0); PLATELET COUNT, AUTOMATED 326 10^3/uL (150-450); RED BLOOD COUNT 3.66 10^6/uL (4.00-5.40); WHITE BLOOD COUNT 6.9 10^3/uL (4.0-10.0)
[2020-07-20 07:10] LABS: ALBUMIN 2.9 GM/DL (3.2-5.2); BILIRUBIN,TOTAL 0.5 MG/DL (0.2-1.0); CALCIUM LEVEL 8.9 MG/DL (8.8-10.2); CREATININE FOR GFR 1.04 MG/DL (0.55-1.30); GLOMERULAR FILTRATION RATE 54.3 (>32); POTASSIUM SERUM 4.4 MEQ/L (3.5-5.1); TOTAL PROTEIN 5.8 GM/DL (6.4-8.2)
[2020-07-20] MEDS: ADVAIR HFA 230/21MCG INHALER INH SCH (07:39)
[2020-07-20] MEDS ORDERED: AUGM875T28 PO (08:31)
--- NOTE | 2020-07-20 09:26 | DS.PDOC ---
Discharge Summary General Date of Admission Jul 18, 2020 at 21:21 Date of Discharge 07/20/2020 Discharge Summary PROCEDURES PERFORMED DURING STAY: [None]. ADMITTING DIAGNOSES / DISCHARGE DIAGNOSES: s/p Abdominal pain - possibly 2/2 biliary colic HTN DLP Vitamin D deficiency Asthma Adenocarcinoma of the lung Chronic back pain GERD DVT prophylaxis COMPLICATIONS/CHIEF COMPLAINT: Abdominal Pain HISTORY OF PRESENT ILLNESS: [id number] female with a PMHx of HTN, DLP, Asthma, Adenocarcinoma of the lung, Pancreatic mucinous cyst adenoma, Chronic back pain, who presented to ER with upper abdominal discomfort. Patient did not experience any nausea or vomiting but did report a poor appetite. Patient was admitted to the hospitalist service for further evaluation and treatment. HOSPITAL COURSE: s/p Abdominal pain - possibly 2/2 biliary colic - Resolution of right upper quadrant abdominal pain - History of Pancreatic mucinous cyst adenoma - s/p surgery - s/p Leukocytosis - No significant elevation of liver enzymes / No elevation of Lipase - CT abdomen / pelvis 07/19: Fatty infiltration of the liver. Stable hepatic cysts. Post splenectomy and partial pancreatectomy. Stable bilateral renal and left ovarian cysts. Cholelithiasis. Status post ventral hernia repair. Small uterine leiomyoma. Prior appendectomy. No acute abdominal or pelvic abnormality seen. - c/w symptomatic control with Pain medications and Anti-emetics - Will start Augmentin on discharge; Will DC Zosyn (Antibiotic day #3) - Patient as tolerated a low-fat diet - Will have outpatient follow-up with PCP and General surgery, Dr. Vargas within the next 7 days HTN - BP well controlled - c/w Losartan / Amlodipine DLP - c/w Simvastatin Vitamin D deficiency - c/w Vitamin D supplementation Asthma - No evidence of exacerbation - c/w inhaled therapy as ordered Adenocarcinoma of the lung - s/p L lower lobectomy (10/2019) Chronic back pain - c/w Gabapentin GERD - c/w Omeprazole DVT prophylaxis - c/w Heparin DISCHARGE MEDICATIONS: Please see below. ALLERGIES: Please see below. PHYSICAL EXAMINATION ON DISCHARGE: Vitals (See below) General: Sitting up in chair, remains comfortable, AAOx3 HEENT: NC, AT CVS: +S1S2 Lungs: Fair air entry b/l, patient without any wheezing, crackles or rhonchi Abdomen: Soft, non-distended, resolution of tenderness Extremities: LE are without any edema, - Calf tenderness LABORATORY DATA: Please see below. ACTIVITY: [As tolerated]. DISCHARGE PLAN: Follow up with PCP within 7 days Remain compliant with treatment plan and medications Return to the ER if you experience any problems DISPOSITION: Home DISCHARGE CONDITION: [Stable]. TIME SPENT ON DISCHARGE: 35 minutes Vital Signs/I&Os Vital Signs Date Time Temp Pulse Resp B/P (MAP) Pulse Ox O2 Delivery O2 Flow Rate FiO2 07/20/20 06:00 97.8 64 18 120/59 (79) 94 Room Air I&O- Last 24 Hours up to 6 AM 07/20/20 06:00 Intake Total 1980 ml Balance 1980 ml Laboratory Data Labs 24H Laboratory Tests 2 07/20/20 05:28: Immature Granulocyte % (Auto) 0.3, Neutrophils (%) (Auto) 58.5, Lymphocytes (%) (Auto) 22.9L, Monocytes (%) (Auto) 10.0H, Eosinophils (%) (Auto) 6.4H, Basophils (%) (Auto) 1.9H, Neutrophils # (Auto) 4.0, Lymphocytes # (Auto) 1.6, Monocytes # (Auto) 0.7, Eosinophils # (Auto) 0.4, Basophils # (Auto) 0.1, Nucleated Red Blood Cells % (auto) 0.0, Anion Gap 5L, Glomerular Filtration Rate 54.3, Calcium Level 8.9, Magnesium Level 2.0, Total Bilirubin 0.5#, Aspartate Amino Transf (AST/SGOT) 32, Alanine Aminotransferase (ALT/SGPT) 39, Alkaline Phosphatase 79, Total Protein 5.8L, Albumin 2.9L, Albumin/Globulin Ratio 1.0L CBC/BMP Laboratory Tests 07/20/20 05:28 Microbiology Microbiology 07/18/20 Blood Culture - Preliminary, Resulted No growth after 24 hours . All specim... 07/18/20 Blood Culture - Preliminary, Resulted No growth after 24 hours . All specim... Discharge Medications Scheduled Amlodipine Besylate (Amlodipine Besylate) 5 Mg Tab, 5 MG PO QHS, (Reported) Amoxicillin/Potassium Clav (Augmentin 875-125 Tablet) 1 Each Tablet, 1 TAB PO BID Brimonidine Tartrate (Alphagan P) 100 Drop/5 Ml Soln, 1 DROP OU BID, (Reported) Cholecalciferol (Vitamin D3) (Vitamin D3) 1,000 Unit Tablet, 1,000 UNITS PO DAILY, (Reported) Fluticasone Propion/Salmeterol (Wixela 250-50 Inhub) 1 Each Blst.w.dev, 1 PUFF INH BID, (Reported) Gabapentin (Gabapentin) 300 Mg Cap, 300 MG PO TID, (Reported) Losartan Potassium (Losartan Potassium) 50 Mg Tablet, 50 MG PO QHS, (Reported) Omeprazole (Omeprazole) 20 Mg Capsule.dr, 20 MG PO DAILY, (Reported) Simvastatin (Simvastatin) 20 Mg Tab, 20 MG PO QPM, (Reported) Vit A/Vit C/Vit E/Zinc/Copper (Preservision Areds Softgel) 1 Each Capsule, 1 CAP PO DAILY, (Reported) Scheduled PRN Acetaminophen (Acetaminophen) 500 Mg Tablet, 1,000 MG PO Q6H PRN for PAIN, (Reported) Albuterol Sulfate (Proair Hfa) 8.5 Gm Hfa.aer.ad, 2 PUFF INH QID PRN for SHORTNESS OF BREATH, (Reported) Carboxymethylcellulose Sodium (Refresh Tears) 15 Ml Drops, 1 DROP OU QID PRN for DRY EYES, (Reported) diphenhydrAMINE HCl (diphenhydrAMINE HCl) 25 Mg Tablet, 25 MG PO Q6H PRN for ALLERGY SYMPTOMS, (Reported) Allergies Coded Allergies: aspirin (Verified Adverse Reaction, Intermediate, ASTHMA EXACERBATION, 10/18/19) succinylcholine (Verified Adverse Reaction, Unknown, FAMILY HISTORY OF COMA, 10/18/19) JACOB CHING MD Jul 20, 2020 09:26
[2020-07-20] MEDS: GABAPENTIN 300 MG CAP PO SCH (09:34)
[2020-07-20] MEDS: BRIMONIDINE 0.1% OPHTH SOLN 5 ML OU SCH (09:34)
[2020-07-20] MEDS: NS 1,000 ML IV SCH (09:34)
[2020-07-20] MEDS: VITAMIN D 1,000 INTERNATIONAL UNITS TABLET PO SCH (09:34)
[2020-07-20] MEDS: HEPARIN SOD (PORCINE) 5000UNITS/ML 1ML VIAL/SYRINGE SC SCH (09:34)
[2020-07-20] MEDS: OCUVITE 1 TAB PO SCH (09:34)
== END 2020-07-20 11:25 | disposition home or self-care (01) | DRG 446 ==
LOC: M ED 11:19 → M ED INP 21:21 → ENRESERV 21:48 → M MSPAV 22:46
PROVIDERS: ADMIT Family Medicine; ATTEND Internal Medicine
DX: K80.50 Calculus of bile duct without cholangitis or cholecystitis without obstruction (principal); D72.829 Elevated white blood cell count, unspecified; K21.9 Gastro-esophageal reflux disease without esophagitis; M54.5 Low back pain; E55.9 Vitamin D deficiency, unspecified; I10 Essential (primary) hypertension; J45.909 Unspecified asthma, uncomplicated; Z79.899 Other long term (current) drug therapy; Z88.6 Allergy status to analgesic agent; Z88.8 Allergy status to other drugs, medicaments and biological substances; E78.5 Hyperlipidemia, unspecified; Z85.118 Personal history of other malignant neoplasm of bronchus and lung

== ENCOUNTER → 2020-07-18 | Outpatient (REF) | payer MEDICARE, BC ==
[2020-07-18 14:51] LABS: LYMPHOCYTES 4 % (16-44); MONOCYTES 1 % (0-5); NEUTROPHILS 92 % (28-66)
[2020-07-18 14:52] LABS: PLATELET ESTIMATE NORMAL (NORMAL)
== END ==
LOC: M LAB REF 12:37
PROVIDERS: ATTEND Nurse Practitioner Adult Health
DX: D72.829 Elevated white blood cell count, unspecified (principal)

== ENCOUNTER → 2020-09-05 | Outpatient (CLI) | payer MEDICARE, BC ==
[~2020-09-05] MED LIST changes: +AUGM875T28 PO; +D31000TA2 PO; +DIPH25TA4 PO; -MECL12.589 PO; +MECL12.590 PO; +OMEP-218; +OMEP1CAP73 PO; +PROAAER10 INH; +REFR0.5D8 OU
== END ==
LOC: M LABSMTC 10:57
PROVIDERS: ATTEND Anesthesiology
DX: Z01.812 Encounter for preprocedural laboratory examination (principal); Z20.828 Contact with and (suspected) exposure to other viral communicable diseases

== ENCOUNTER 2020-09-10 09:55 | Day surgery (SDC) | payer MEDICARE, BC ==
[~2020-09-10] VITALS: Ht 149.9 cm; Wt 63.4 kg
[~2020-09-10 09:55] MED LIST changes: +LIDOCAINE 2% 100MG/5ML SDV (FOR ANES.) As Ordered ONE; +LR 1,000 ML IV ONE; +MIDAZOLAM INJ 2MG/2ML VIAL (J2250 PER 1MG) As Ordered ONE; +ONDANSETRON 4MG/2ML VIAL As Ordered ONE; +ROCURONIUM BROMIDE 50 MG/5 ML VIAL As Ordered ONE; +dexameTHASONE 4 MG/ML 1ML VIAL (J1100 PER 1MG) As Ordered ONE; +fentaNYL 250 MCG/5 ML INJECTION (J3010) As Ordered ONE; +propofoL 200 MG/20 ML VIAL As Ordered ONE
[2020-09-10] MEDS ORDERED: BUPIVACAINE HCL 0.25% 30ML VIAL As Ordered ONE (12:08)
[2020-09-10] MEDS ORDERED: SUGAMMADEX SODIUM 500 MG/5 ML VIAL (BRIDION) As Ordered ONE (12:42)
[2020-09-10] MEDS ORDERED: PHENYLephrine HCL 500 MCG/5 ML (100MCG/ML) SYRINGE (J2370) As Ordered ONE (12:43)
[2020-09-10] MEDS ORDERED: ROCURONIUM BROMIDE 50 MG/5 ML VIAL As Ordered ONE (12:44)
[2020-09-10] MEDS ORDERED: ACETAMINOPHEN 1000MG 100ML IV BTL (OFIRMEV) (J0131 PER 10MG) As Ordered ONE (13:01)
[2020-09-10] MEDS ORDERED: fentaNYL 100 MCG/2 ML INJECTION (J3010) IV PRN (15:15)
[2020-09-10] MEDS ORDERED: LR 1,000 ML IV SCH (15:15)
[2020-09-10] MEDS ORDERED: ONDANSETRON 4MG/2ML VIAL IV PRN (15:15)
[2020-09-10] MEDS ORDERED: HYDROMORPHONE HCL 0.5 MG/ 0.5 ML SYRINGE (J1170 PER 1) IV PRN (15:15)
[2020-09-10] MEDS ORDERED: oxyCODONE 5MG TAB PO PRN (15:15)
[2020-09-10] MEDS ORDERED: ACETAMINOPHEN TAB 650MG DOSE (2X325MG) PO PRN (15:45)
[2020-09-10 17:25] VITALS: BP 149/72
--- NOTE | 2020-09-12 07:31 | RO ---
OPERATIVE NOTE DATE OF OPERATION: 09/10/2020 PREOPERATIVE DIAGNOSIS: Symptomatic gallstones. POSTOPERATIVE DIAGNOSIS: Symptomatic gallstones with extensive intra-abdominal adhesions. PROCEDURE PERFORMED: Robotic-assisted laparoscopic cholecystectomy with extensive lysis of adhesions. SURGEON: Salbador Vargas MD ANESTHESIA: General. INDICATIONS FOR THE PROCEDURE: The patient is an 79-year-old woman with a history of upper abdominal pains consistent with biliary colic. Ultrasound confirmed cholelithiasis. She is now for a robotic-assisted laparoscopic cholecystectomy. The patient has had several abdominal procedures including an open appendectomy and an open distal pancreatectomy and splenectomy. OPERATIVE PROCEDURE: The patient was brought to the operating room and placed on the table in a supine position. She was placed under general endotracheal anesthesia. TEDs and sequentials were utilized. The patient's abdomen was prepped and draped in a sterile fashion. 1/4% Marcaine was infiltrated at each of the trocar sites as needed. Examination of the abdomen showed a long midline scar extending from the epigastrium to the hypogastrium. She also had an oblique right lower quadrant scar. She was also known to have a large piece of [place] dual-mesh patch in the upper mid-abdomen from a prior hernia repair. I elected to place the initial trocar site in the right mid-abdominal about at the level of the umbilicus. A short transverse incision was made and a Veress needle was placed without difficulty. After having hanging drop test, the abdomen was insufflated with carbon dioxide gas. An 8 mm port was placed over a 5 mm scope and advanced to the anterior abdominal wall without difficulty. Initial examination showed significant adhesions in all directions. I had fortuitously placed the trocar in a free space but there were significant adhesions inferiorly, medially and superiorly. It was possible to advance the camera around the superior adhesions and catch a brief look at the liver which appeared somewhat dark but otherwise normal. The gallbladder appeared slightly pale and perhaps mildly thickened but not acutely inflamed. It was clear I would need to perform an adhesiolysis to be able to access the gallbladder adequately. A second 8 mm port was placed in the lateral abdomen just above the level of the first port. This was also an 8 mm port. Using a harmonic scalpel through these two ports, I was able to take down some adhesions in the right lateral abdomen and the inferior portion of the abdomen. A 5 mm port was placed lower down in the right lower quadrant to provide an additional camera port to proceed with the adhesiolysis. In this manner, I was able to take down many of the adhesions above the level of the trocar insertions. Some adhesions below the initial trocar site were left undisturbed. There were some areas of small bowel adherent to the anterior abdominal wall. In the mid-abdomen, the area of the abdominal wall mesh was identified. This was a piece of [place] dual-mesh patch. It was possible to sweep some of the adhesions of the omentum off of this but in most areas it was necessary to proceed using the harmonic scalp to divide the adhesions. In this manner, the upper right abdomen and midline were cleared. A fourth trocar which was 8 mm in diameter was placed just to the right of the midline in the epigastrium and a final 8 mm port was placed between the first and second ports that had been placed in the right mid-abdomen. The patient was tilted to a slight reverse Trendelenburg position and rolled slightly to the left. The patient cart with the [employer] robot was brought into position. The camera arm of the robot was docked to the first trocar site. Targeting took place on the gallbladder. The additional robotic arms were then docked. A hook cautery was placed in the high epigastric port, a fenestrated bipolar in the right mid-abdominal port and a grasping retractor in the lateral right abdominal port. I then moved to the control console to proceed with the operation. The gallbladder was grasped and elevated. Dissection began near the gallbladder neck with the peritoneum being incised. Dissection was carried through the pericholecystic fibrofatty tissue using the hook cautery. With careful dissection, the cystic duct was clearly identified and dissected free. The common bile duct was clearly visible running in the retroperitoneum. The cholecystic artery was clearly identified. This gave off two branches to the gallbladder, one slightly superior and one more inferior. Hem-O-Loc clips were placed on the cystic duct and on the main cholecystic artery in both branches. These were then divided using the hook cautery. It was noted that as the cystic duct was transected, some stone debris was released from within the cystic duct. Dissection then continued using the hook cautery to free the gallbladder from the gallbladder bed. In the course of dissection, a small puncture of the gallbladder occurred toward the fundus. A small amount of very thick brown-green bile was released into the subhepatic space but most of the fluid remained within the gallbladder. The gallbladder was then completely freed and placed in an Endopouch. The right upper quadrant was then copiously irrigated with saline to remove any bile staining and spilled blood which was minimal. Final inspection showed no evidence of bleeding or bile leak. The robotic instruments were then removed and the robot arms were undocked. The patient cart was withdrawn. I returned to the patient's side. The first trocar was used as the extraction site. The string of the Endopouch was grasped through this and withdrawn. The abdomen was then deflated after the patient had been leveled and the trocars were removed. The skin incision was incised slightly at the extraction site and the fascia was then opened slightly as well. The gallbladder was extracted easily at this point and sent for pathology. The fascia in the site was closed with buried sutures of 1-0 Vicryl. The skin incisions were all closed with buried 4-0 Vicryl and Steri-Strips. Light dressings were applied. The patient tolerated the procedure without apparent complication. She was awakened in the operating room, extubated and moved to the recovery room in stable condition.
== END 2020-09-10 17:36 | disposition home or self-care (01) ==
LOC: M SDC 09:55
PROVIDERS: ATTEND Surgery
DX: K80.20 Calculus of gallbladder without cholecystitis without obstruction (principal); K66.0 Peritoneal adhesions (postprocedural) (postinfection); E78.00 Pure hypercholesterolemia, unspecified; I10 Essential (primary) hypertension; E78.49 Other hyperlipidemia; Z88.8 Allergy status to other drugs, medicaments and biological substances; J45.909 Unspecified asthma, uncomplicated; Z85.118 Personal history of other malignant neoplasm of bronchus and lung; Z90.2 Acquired absence of lung [part of]; K21.9 Gastro-esophageal reflux disease without esophagitis; Z79.899 Other long term (current) drug therapy
CPT/HCPCS: 47562; 49329; 88304; J0131; J1100; J2250; J2370; J2405; J3010; S2900

== ENCOUNTER → 2020-12-02 | Outpatient (CLI) | payer MEDICARE, BC ==
[~2020-12-02] MED LIST changes: +GABA-282 PO; -GABA-843 PO; -LIDOCAINE 2% 100MG/5ML SDV (FOR ANES.) As Ordered ONE; -LR 1,000 ML IV ONE; +MECL-136 PO; -MECL12.590 PO; -MIDAZOLAM INJ 2MG/2ML VIAL (J2250 PER 1MG) As Ordered ONE; -ONDANSETRON 4MG/2ML VIAL As Ordered ONE; -ROCURONIUM BROMIDE 50 MG/5 ML VIAL As Ordered ONE; -dexameTHASONE 4 MG/ML 1ML VIAL (J1100 PER 1MG) As Ordered ONE; -fentaNYL 250 MCG/5 ML INJECTION (J3010) As Ordered ONE; -propofoL 200 MG/20 ML VIAL As Ordered ONE
--- NOTE | 2020-12-02 13:50 | REP ---
INDICATION: LUNG CA. COMPARISON: Chest CT studies dated 10/05/2019 and 04/22/2020 TECHNIQUE: Chest CT without IV contrast. FINDINGS: Patient has had known resection of a pleural-based spiculated mass in the left lower lobe. There is a surgical staple line in the left lower lobe, unchanged from 04/22/2020 consistent with this history. There is no evidence of tumor recurrence in this location. There are stable small lung nodules on images 30, 39, 48 and 54, unchanged from 10/05/2009. Additionally there is an 8 mm nodule with poorly defined margins in the posterior sulcus of the left lower lobe on image 74, unchanged from 04/22/2020, possibly postsurgical scarring. There are no infiltrates. There are no pleural effusions. There are borderline enlarged mediastinal nodes, unchanged from 10/05/2019. In the absence of IV contrast the study is insensitive for hilar lymph node enlargement. There is no axillary lymph node enlargement. Thoracic aorta is unremarkable. Cardiac size is normal. There are coronary artery atheromatous calcifications. Upper abdomen: There is a 2.0 cm sharply circumscribed hypodensity in the medial segment of the hepatic left lobe on image 77, unchanged from 10/05/2019, likely an hepatic cyst. The unenhanced hepatic parenchyma is otherwise homogeneous and unremarkable. The gallbladder is not visualized. The head and the proximal body of the pancreas are unremarkable. There is a surgical staple ring in the body of the pancreas. Patient has had a partial pancreatectomy. This is unchanged from the comparison studies. There is no adrenal nodule or mass. The visualized renal upper poles are unremarkable. The left renal cyst identified on 06/2007/02/2020 is excluded from the current study. IMPRESSION: There are multiple small stable lung nodules as described. There are no new lung nodules and there are no enlarging nodules. There has been resection of the left lower lobe lung nodule and the appearance in this area is unchanged from 04/22/2020. There are stable borderline enlarged mediastinal nodes. Partial pancreatectomy with no interval change. Stable hepatic cyst. <Electronically signed by Berto Avina > 12/02/20 [id number]
== END ==
LOC: M RAD 10:26
PROVIDERS: ATTEND Internal Medicine Pulmonary Disease
DX: R91.8 Other nonspecific abnormal finding of lung field (principal); R59.0 Localized enlarged lymph nodes; Z85.118 Personal history of other malignant neoplasm of bronchus and lung

== ENCOUNTER → 2021-06-24 | Outpatient (CLI) | payer MEDICARE ==
--- NOTE | 2021-06-24 13:45 | REP ---
INDICATION: HX MALIG NEOPLASM BRONCHUS/LUNG COMPARISON: Multiple the latest 12/02/2020 also without contrast TECHNIQUE: Standard helical technique without contrast FINDINGS: The mediastinum and pulmonary ya are unchanged. Stable appearing but borderline lymph nodes are again noted. There are no pleural or pericardial effusions. There is no significant change in appearance of the imaged upper abdomen. Hepatic and renal cysts are again noted. There is no change in appearance of the imaged osseous structures. Advanced spinal degenerative changes are again noted. Evaluation of the lung hinkle shows minimal biapical pleuroparenchymal scarring and multiple stable pulmonary nodules. No new abnormal nodules, masses, or opacities have developed. There is stable cylindrical bronchiectasis. Left lung postop changes status quo. IMPRESSION: Stable CT examination of the chest. <Electronically signed by Ronald Hollingsworth > 06/24/21 [id number]
== END ==
LOC: M PLAIMG 11:01
PROVIDERS: ATTEND Internal Medicine Pulmonary Disease
DX: C34.32 Malignant neoplasm of lower lobe, left bronchus or lung (principal); R91.1 Solitary pulmonary nodule

== ENCOUNTER → 2021-12-24 | Outpatient (CLI) | payer MEDICARE, BC ==
[~2021-12-24] MED LIST changes: -D31000TA2 PO; +LOSA50TA28 PO; -LOSA50TA88 PO; +OMEP-173; -OMEP-218; +VITA100093 PO
== END ==
LOC: M RAD 07:27
PROVIDERS: ATTEND Internal Medicine Pulmonary Disease
DX: R91.8 Other nonspecific abnormal finding of lung field (principal); Z85.118 Personal history of other malignant neoplasm of bronchus and lung

== ENCOUNTER → 2022-06-29 | Outpatient (CLI) | payer MEDICARE, BC | LOC: M PLAIMG 09:40 | PROVIDERS: ATTEND Internal Medicine Pulmonary Disease | DX: Z85.118 Personal history of other malignant neoplasm of bronchus and lung (principal); J44.9 Chronic obstructive pulmonary disease, unspecified; R91.8 Other nonspecific abnormal finding of lung field ==

== ENCOUNTER → 2022-12-21 | Outpatient (CLI) | payer MEDICARE, BC | LOC: M WHC 10:41 | PROVIDERS: ATTEND Internal Medicine | DX: Z12.31 Encounter for screening mammogram for malignant neoplasm of breast (principal) ==

== ENCOUNTER → 2023-01-22 | Outpatient (CLI) | payer MEDICARE, BC | LOC: M PLAIMG 10:58 | PROVIDERS: ATTEND Internal Medicine Pulmonary Disease | DX: Z85.118 Personal history of other malignant neoplasm of bronchus and lung (principal) ==

== ENCOUNTER → 2023-02-10 | Outpatient (CLI) | payer MEDICARE, BC | LOC: M PLARAD 13:17 | PROVIDERS: ATTEND Internal Medicine Pulmonary Disease | DX: R91.8 Other nonspecific abnormal finding of lung field (principal) | CPT/HCPCS: 78815; A9552 ==

== ENCOUNTER → 2023-03-17 | Outpatient (CLI) | payer MEDICARE, BC ==
[~2023-03-17] MED LIST changes: +LIDOCAINE 1% MDV 20ML VIAL As Ordered ONE
[2023-03-17 10:46] VITALS: BP 175/80; TEMP 97.7; O2SAT 97
== END ==
LOC: M IRPRO 10:06
PROVIDERS: ATTEND Internal Medicine
DX: D37.030 Neoplasm of uncertain behavior of the parotid salivary glands (principal)

== ENCOUNTER → 2023-08-17 | Outpatient (CLI) | payer MEDICARE, BC ==
[~2023-08-17] MED LIST changes: -LIDOCAINE 1% MDV 20ML VIAL As Ordered ONE
== END ==
LOC: M RAD 13:50
PROVIDERS: ATTEND Otolaryngology
DX: D11.0 Benign neoplasm of parotid gland (principal)

== ENCOUNTER → 2023-08-30 | Outpatient (CLI) | payer MEDICARE, BC | LOC: M PLAIMG 10:01 | PROVIDERS: ATTEND Internal Medicine Pulmonary Disease | DX: Z85.118 Personal history of other malignant neoplasm of bronchus and lung (principal) ==

== ENCOUNTER → 2023-12-30 | Outpatient (CLI) | payer MEDICARE | LOC: M WHC 12:53 | PROVIDERS: ATTEND Internal Medicine | DX: Z12.31 Encounter for screening mammogram for malignant neoplasm of breast (principal); M81.0 Age-related osteoporosis without current pathological fracture ==

== ENCOUNTER → 2024-04-07 | Outpatient (CLI) | payer MEDICARE | LOC: M RAD 09:56 | PROVIDERS: ATTEND Internal Medicine Pulmonary Disease | DX: R91.8 Other nonspecific abnormal finding of lung field (principal); J84.10 Pulmonary fibrosis, unspecified ==

== ENCOUNTER → 2024-06-19 | Outpatient (CLI) | payer MEDICARE ==
[~2024-06-19] MED LIST changes: +GABA-1172 PO; -GABA-282 PO
== END ==
LOC: M WUC 14:04
PROVIDERS: ATTEND Physician Assistant Medical
DX: R06.02 Shortness of breath (principal); R05.9 Cough, unspecified; J45.909 Unspecified asthma, uncomplicated

== ENCOUNTER → 2024-07-11 | Outpatient (CLI) | payer MEDICARE | LOC: M PLAIMG 09:16 | PROVIDERS: ATTEND Internal Medicine Pulmonary Disease | DX: R91.1 Solitary pulmonary nodule (principal) ==

== ENCOUNTER → 2024-10-11 | Outpatient (CLI) | payer MEDICARE ==
[~2024-10-11] MED LIST changes: -ADV250INH INH; +ADVA1AER9 INH
== END ==
LOC: M RAD 07:52
PROVIDERS: ATTEND Internal Medicine Pulmonary Disease
DX: R91.8 Other nonspecific abnormal finding of lung field (principal); Z85.118 Personal history of other malignant neoplasm of bronchus and lung; K44.9 Diaphragmatic hernia without obstruction or gangrene; I70.0 Atherosclerosis of aorta

== ENCOUNTER → 2024-12-01 | Outpatient (CLI) | payer MEDICARE ==
[~2024-12-01] MED LIST changes: +DENO60SY2 SC; -PROL60SO SC
== END ==
LOC: M RAD 13:34
PROVIDERS: ATTEND Otolaryngology
DX: D11.0 Benign neoplasm of parotid gland (principal)

== ENCOUNTER 2025-01-16 12:04 | Emergency (ER) | payer MEDICARE ==
[~2025-01-16] VITALS: Ht 149.9 cm; Wt 62.2 kg
[~2025-01-16 12:04] MED LIST changes: -BRIM1OPD OU; +BRIM5DRO25 OU
[2025-01-16] MEDS: NEOSPORIN TOP OINT 15GM TOP ONE (17:25)
[2025-01-16] MEDS: ACETAMINOPHEN 500 MG TAB PO ONE (17:30)
[2025-01-16 18:10] VITALS: BP 173/79; TEMP 96.5; O2SAT 97
== END 2025-01-16 19:53 | disposition home or self-care (01) ==
LOC: M ED 12:04
DX: S73.112A Iliofemoral ligament sprain of left hip, initial encounter (principal); S83.422A Sprain of lateral collateral ligament of left knee, initial encounter; W01.198A Fall on same level from slipping, tripping and stumbling with subsequent striking against other object, initial encounter; M25.78 Osteophyte, vertebrae; M47.892 Other spondylosis, cervical region; M16.12 Unilateral primary osteoarthritis, left hip; I10 Essential (primary) hypertension; Z88.6 Allergy status to analgesic agent; Z88.8 Allergy status to other drugs, medicaments and biological substances; Z79.52 Long term (current) use of systemic steroids; Z79.899 Other long term (current) drug therapy; Z79.1 Long term (current) use of non-steroidal anti-inflammatories (NSAID); Y92.531 Health care provider office as the place of occurrence of the external cause; Y93.89 Activity, other specified; Y99.9 Unspecified external cause status

== ENCOUNTER → 2025-01-19 | Outpatient (CLI) | payer MEDICARE | LOC: M PLAIMG 09:49 | PROVIDERS: ATTEND Internal Medicine Pulmonary Disease | DX: R91.8 Other nonspecific abnormal finding of lung field (principal); J84.10 Pulmonary fibrosis, unspecified; I70.0 Atherosclerosis of aorta; I25.10 Atherosclerotic heart disease of native coronary artery without angina pectoris ==

== ENCOUNTER → 2025-08-03 | Outpatient (CLI) | payer MEDICARE | LOC: M PLAIMG 10:52 | PROVIDERS: ATTEND Internal Medicine Pulmonary Disease | DX: R91.8 Other nonspecific abnormal finding of lung field (principal) ==